=== PATIENT | male | born 1940 | race Caucasian/White ===

== ENCOUNTER 2017-01-14 19:54 | Emergency (ER) | payer MEDICARE ==
[~2017-01-14] VITALS: Ht 172.7 cm; Wt 71.2 kg
[~2017-01-14 19:54] MED LIST: /FEXO18TA OR; /FEXO18TA PO; ALBU17IN2 IN; AMLO10TA OR; ASPI81TA83 PO; ATROVENT0.02% INH; BUSP10TA2 PO; COLA100C2 OR; Cardizem CD PO; FIBER LAXATIVE PO; HYDR25TA6 PO; LEVA750T OR; METOPROLOL TARTRATE PO; MIRALEX PO; MUCINEX PO; OMEP20TA7 PO; SLOWTAB PO; TRAM50TA2 OR; TRAZ100T PO; TRICOR PO; [UNRECOGNIZED DRUG - OTHER] PO
[2017-01-14] MEDS ORDERED: PANT20TA PO (20:07)
[2017-01-14 21:11] LABS: BASO % 0.2 % (0.0-1.0); EOS % 0.4 % (0.0-3.0); LARGE UNSTAINED CELL # 0.2 K/mm3 (0.0-0.4); LARGE UNSTAINED CELL % 2.6 % (0.0-4.0); LYMPH # 1.2 K/mm3 (1.5-4.5); LYMPH % 18.3 % (24.0-44.0); MEAN CORPUSCULAR HEMOGLOBIN 32.4 pg (27.0-33.0); MEAN CORPUSCULAR HGB CONC 33.5 g/dl (32.0-36.5); MEAN CORPUSCULAR VOLUME 96.8 fl (80.0-96.0); MONO # 0.3 K/mm3 (0.0-0.8); MONO % 4.7 % (0.0-5.0); NEUTROPHILS # 4.9 K/mm3 (1.8-7.7); NEUTROPHILS % 73.8 % (36.0-66.0); PLATELET COUNT, AUTOMATED 209 k/mm3 (150-450); WHITE BLOOD COUNT 6.7 K/mm3 (4.0-10.0)
[2017-01-14 21:38] LABS: ALBUMIN 3.1 GM/DL (3.2-5.2); ALBUMIN/GLOBULIN RATIO 1.07 (1.00-1.93); ALKALINE PHOSPHATASE 29 U/L (45-117); ALT/SGPT 13 U/L (12-78); ANION GAP 7 MEQ/L (8-16); AST/SGOT 11 U/L (15-37); BILIRUBIN,DIRECT 0.3 MG/DL (0.0-0.2); BILIRUBIN,TOTAL 1.2 MG/DL (0.2-1.0); BLOOD UREA NITROGEN 19 MG/DL (7-18); CARBON DIOXIDE LEVEL 28 MEQ/L (21-32); CHLORIDE LEVEL 103 MEQ/L (98-107); CREATININE FOR GFR 0.87 MG/DL (0.70-1.30); GLOMERULAR FILTRATION RATE > 60.0 (>42); GLUCOSE, FASTING 109 MG/DL (83-110); POTASSIUM SERUM 3.4 MEQ/L (3.5-5.1); SODIUM LEVEL 138 MEQ/L (136-145)
[2017-01-14] MEDS ORDERED: ISOVUE-370 76% 100ML VIAL (Q9967) As Ordered ONE (22:07)
[2017-01-15] MEDS ORDERED: MECL-68 PO (00:33)
[2017-01-15] MEDS ORDERED: ZITHTAB PO (00:36)
[2017-01-15] MEDS ORDERED: NS 1,000 ML IV ONE (01:30)
[2017-01-15 02:05] VITALS: BP 182/91
--- NOTE | 2017-01-15 03:10 | REPUSA ---
CT of the abdomen and pelvis with contrast Clinical statement: Pain. Technique: Multiple axial CT images were obtained from the base of the lungs through the floor of the pelvis utilizing 5 mm axial slices after administration of nonionic intravenous contrast. Coronal an d sagittal reconstructions were also obtained. No comparison is available. Findings: Chest: There is a right lower lobe infiltrate. There is a small hiatal hernia. Abdomen: The liver, spleen, pancreas, kidneys, and adrenal glands are unremarkable. The gallbladder i s significantly distended. Dense material is seen in the dependent portion the gallbladder. There is no gallbladder wall thickening or pericholecystic free fluid. The aorta is within normal limits. Ther e is no evidence of abdominal lymphadenopathy or ascites. Pelvis: Moderate amount of stool fills the colon. The bowel is ootherwise unremarkable, with no obstr uctive or inflammatory changes. The urinary bladder is within normal limits. The other pelvic structu res appear grossly intact. There is no evidence of pelvic lymphadenopathy or ascites. Bones: There are no suspicious osseous abnormalities seen. Multilevel degenerative disc disease is no edilberto throughout the lower thoracic and lumbar spine, most severe at L1/L2 . Moderate osteoarthritic c hanges are seen in the hip joints bilaterally. Impression: 1. Moderate constipation. No obstructive or inflammatory bowel changes. 2. Right lower lobe pneumonia. 3. Small hiatal hernia. 4. Distended gallbladder with dense material, likely representing gallbladder sludge.No evidence for acute cholecystitis. 5. Moderately severe degenerative changes within the spine and hip joints bilaterally.
--- NOTE | 2017-01-15 03:10 | REPUSA ---
CT of the head Clinical history: vertigo, fever. Protocol: Multiple axial CT images obtained with 5 mm slice thickness were obtained through the head without administration of contrast. Findings: The ventricles and sulci are symmetric but prominent in size bilaterally. There are periven tricular areas of low attenuation throughout the deep white matter. There is no evidence of acute hem orrhage or infarct. There is no midline shift, mass effect, or extra-axial fluid collection. The osse ous structures are unremarkable. The visualized paranasal sinuses and mastoid air cells are clear. Impression: No acute hemorrhage or infarct. 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
--- NOTE | 2017-01-16 08:03 | ECGEPIP ---
Stationary ECG Study 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
== END 2017-01-15 02:20 | disposition home or self-care (01) ==
LOC: M ED 20:47
DX: H81.13 Benign paroxysmal vertigo, bilateral (principal); R10.10 Upper abdominal pain, unspecified; I11.0 Hypertensive heart disease with heart failure; I50.9 Heart failure, unspecified; I25.2 Old myocardial infarction
CPT/HCPCS: 36415; 70450; 74177; 80048; 80076; 81001; 83605; 83690; 85025; 93005; 93041; 99285; Q9967

== ENCOUNTER 2017-02-06 14:14 | Inpatient (IN) | payer MEDICARE ==
[~2017-02-06] VITALS: Ht 172.7 cm; Wt 64.2 kg
[~2017-02-06 14:14] MED LIST changes: +MECL-68 PO; +PANT20TA PO; +ZITHTAB PO
[2017-02-06] MEDS ORDERED: BUSP10TA PO (14:28)
[2017-02-06] MEDS ORDERED: MECL-86 PO (14:28)
[2017-02-06] MEDS ORDERED: ASPI81TA85 PO (14:28)
[2017-02-06] MEDS ORDERED: TRAM50TA2 PO (14:29)
[2017-02-06] MEDS ORDERED: TRAZ100T4 PO (14:29)
[2017-02-06] MEDS ORDERED: MECLIZINE 25 MG TABLET PO ONE (17:00)
[2017-02-06 17:02] LABS: BASO % 0.4 % (0.0-1.0); EOS # 0.1 K/mm3 (0.0-0.50); EOS % 2.3 % (0.0-3.0); LARGE UNSTAINED CELL # 0.1 K/mm3 (0.0-0.4); LARGE UNSTAINED CELL % 2.6 % (0.0-4.0); LYMPH # 1.3 K/mm3 (1.5-4.5); LYMPH % 35.5 % (24.0-44.0); MEAN CORPUSCULAR HEMOGLOBIN 32.5 pg (27.0-33.0); MEAN CORPUSCULAR HGB CONC 33.6 g/dl (32.0-36.5); MEAN CORPUSCULAR VOLUME 96.7 fl (80.0-96.0); MONO # 0.2 K/mm3 (0.0-0.8); MONO % 4.9 % (0.0-5.0); NEUTROPHILS # 1.9 K/mm3 (1.8-7.7); NEUTROPHILS % 54.3 % (36.0-66.0); PLATELET COUNT, AUTOMATED 202 k/mm3 (150-450); RED CELL DISTRIBUTION WIDTH 14.3 % (11.5-14.5); WHITE BLOOD COUNT 3.4 K/mm3 (4.0-10.0)
[2017-02-06 17:28] LABS: ANION GAP 6 MEQ/L (8-16); BLOOD UREA NITROGEN 20 MG/DL (7-18); CALCIUM LEVEL 8.3 MG/DL (8.8-10.2); CARBON DIOXIDE LEVEL 30 MEQ/L (21-32); CHLORIDE LEVEL 105 MEQ/L (98-107); CREATININE FOR GFR 0.87 MG/DL (0.70-1.30); GLOMERULAR FILTRATION RATE > 60.0 (>42); GLUCOSE, FASTING 158 MG/DL (83-110); MAGNESIUM LEVEL 1.7 MG/DL (1.8-2.4); PHOSPHORUS LEVEL 2.9 MG/DL (2.5-4.9); POTASSIUM SERUM 3.8 MEQ/L (3.5-5.1); SODIUM LEVEL 141 MEQ/L (136-145)
--- NOTE | 2017-02-06 18:10 | REP ---
CHEST, TWO VIEWS: HISTORY: Dizziness and fatigue. COMPARISON: 01/03/2016 The heart size is now borderline. A few patchy opacities have developed in the inferior posterior lung michaud seen only on the lateral view anterior to the pulmonary veins. The frontal view shows the lung field to be clear. The osseous structures stable and intact. The pleural angles are sharp. IMPRESSION: Possible developing lower lobe pneumonia as described above which needs to be correlated clinically with appropriate followup. Borderline heart size. Signed by Jose Guadalupe Fuentes DO 02/06/2017 06:53 P
[2017-02-06] MEDS ORDERED: ACETAMINOPHEN TAB 650MG DOSE (2X325MG) As Ordered ONE (19:30)
[2017-02-06] MEDS ORDERED: ACETAMINOPHEN TAB 650MG DOSE (2X325MG) PO ONE (19:30)
[2017-02-06] MEDS ORDERED: hydrALAZINE INJ 20 MG/ML VIAL IV ONE (19:45)
[2017-02-06] MEDS ORDERED: LevoFLOXacin IV 750 MG in APPROPRIATE DILUENT 1 EA IV ONE (20:00)
[2017-02-06] MEDS ORDERED: MAGNESIUM OXIDE 400 MG TAB (MAG-OX) PO ONE (20:00)
--- NOTE | 2017-02-06 20:00 | REPUSA ---
CLINICAL HISTORY: HTN, DIZZY, EVAL FOR ICH TECHNIQUE: Multiple axial CT images were obtained through the brain without IV contrast material. COMMENTS: There is normal configuration of sella turcica. There are no intra or extra-axial collections. There is no mass effect or midline shift. There is no evidence of hematoma formation. No hydrocephalus is p resent. The ventricles are symmetrical. No abnormal calcifications are present. There is diffuse age-appropriate cerebellar and cerebral atrophy with proportionally dilated ventricl es and cortical sulci. There are bilateral periventricular and subcortical white matter hypolucencies compatible with mild c hronic microvascular disease. Otherwise, no significant focal abnormalities are seen either in the posterior fossa or supratentoria l compartment. IMPRESSION: 1. Age-appropriate cerebellar and cerebral atrophy. 2. Mild chronic microvascular disease. 3. No evidence of acute intracranial pathology. Thank you for your kind referral of this patient.
[2017-02-06] MEDS ORDERED: ASPI81TA7 PO (20:31)
[2017-02-06] MEDS ORDERED: FLUD1TA PO (20:31)
[2017-02-06] MEDS ORDERED: BUSP15TA47 PO (20:31)
[2017-02-06] MEDS ORDERED: IBUP60TA PO (20:31)
[2017-02-06] MEDS ORDERED: PANT40TA2 PO (20:31)
[2017-02-06] MEDS ORDERED: OXYB5TA PO (20:31)
[2017-02-06] MEDS ORDERED: traMADol 50 MG TAB PO PRN (21:30)
[2017-02-06 23:45] VITALS: BP 207/91
[2017-02-07] VITALS (18 sets, daily range): BP systolic 85–204; BP diastolic 48–90
[2017-02-07] MEDS: hydrALAZINE INJ 20 MG/ML VIAL IV SCH ×2 (00:07→06:00)
[2017-02-07] MEDS: traZODone 50 MG TAB PO SCH ×2 (00:25→20:19)
[2017-02-07] MEDS: cefTRIAXone SOD 1 GM in D5W MINI-BAG PLUS 50 ML IV SCH ×2 (00:25→11:46)
[2017-02-07] MEDS: busPIRone 5 MG TAB PO SCH ×3 (00:25→20:19)
[2017-02-07] MEDS: oxyBUTYnin 5 MG TAB PO SCH ×3 (01:53→20:19)
[2017-02-07] MEDS ORDERED: PREVNAR 13 VACCINE SYRINGE (CPT CODE:90670) IM SCH (04:15)
[2017-02-07] MEDS ORDERED: MAG SULF 1GM/100ML (MAG RUN) 1 GM in APPROPRIATE DILUENT 1 EA IV ONE (04:30)
[2017-02-07 04:50] LABS: BASO % 0.5 % (0.0-1.0); EOS % 1.1 % (0.0-3.0); LARGE UNSTAINED CELL # 0.1 K/mm3 (0.0-0.4); LARGE UNSTAINED CELL % 2.7 % (0.0-4.0); LYMPH # 0.9 K/mm3 (1.5-4.5); LYMPH % 17.9 % (24.0-44.0); MEAN CORPUSCULAR HGB CONC 33.5 g/dl (32.0-36.5); MEAN CORPUSCULAR VOLUME 95.5 fl (80.0-96.0); MONO # 0.3 K/mm3 (0.0-0.8); NEUTROPHILS # 3.2 K/mm3 (1.8-7.7); NEUTROPHILS % 71.8 % (36.0-66.0); PLATELET COUNT, AUTOMATED 228 k/mm3 (150-450); RED CELL DISTRIBUTION WIDTH 14.3 % (11.5-14.5); WHITE BLOOD COUNT 4.4 K/mm3 (4.0-10.0)
[2017-02-07 05:13] LABS: ALBUMIN 2.8 GM/DL (3.2-5.2); ALKALINE PHOSPHATASE 26 U/L (45-117); ALT/SGPT 15 U/L (12-78); ANION GAP 4 MEQ/L (8-16); AST/SGOT 13 U/L (15-37); BILIRUBIN,TOTAL 0.7 MG/DL (0.2-1.0); BLOOD UREA NITROGEN 19 MG/DL (7-18); CALCIUM LEVEL 8.3 MG/DL (8.8-10.2); CARBON DIOXIDE LEVEL 31 MEQ/L (21-32); CHLORIDE LEVEL 108 MEQ/L (98-107); CREATININE FOR GFR 1.02 MG/DL (0.70-1.30); GLOMERULAR FILTRATION RATE > 60.0 (>42); GLUCOSE, FASTING 133 MG/DL (83-110); POTASSIUM SERUM 3.3 MEQ/L (3.5-5.1); SODIUM LEVEL 143 MEQ/L (136-145); TOTAL PROTEIN 5.6 GM/DL (6.4-8.2)
--- NOTE | 2017-02-07 05:16 | HPE ---
DATE OF ADMISSION: 02/06/2017 PRIMARY CARE PROVIDER: MARVIN Ruiz REASON FOR ADMISSION: Dizziness, hypertensive urgency. HISTORY OF PRESENT ILLNESS: Patient is a 76-year-old male with past medical history significant for gastroesophageal reflux disease (GERD), urinary incontinence, chronic constipation, depression, presented to the emergency room with his who stated that patient has been feeling weak and sleepy all morning. She stated he has been feeling dizzy, almost passed out, but had no syncopal episodes and no loss of consciousness. Patient denied any chest pain or shortness of breath. He did complain of chills but no fevers. He was recently diagnosed with pneumonia and completed a Z-Julian for 5 days that was 3 weeks ago. Upon presentation, patient underwent chest x-ray which showed possible developing lower lobe pneumonia as described above in the chest x-ray. Hospitalist was called for the admission. REVIEW OF SYSTEMS: 12-point review of system was obtained all which was negative except for those mentioned above. PAST MEDICAL HISTORY: Significant for chronic constipation, GERD, urinary incontinence, recently diagnosed pneumonia, and anxiety. PAST SURGICAL HISTORY: Significant for left knee surgery. ALLERGIES: To PENICILLIN and SULFA, reaction unknown. SOCIAL HISTORY: Patient denies tobacco, alcohol or drug use. Lives at home with his . FAMILY HISTORY: Noncontributory. PHYSICAL EXAMINATION: Vital signs on admission: Blood pressure initially was 108/50 but then during his stay in the emergency department (ED) his pressure went up in the 160s and 183/77. He was given one dose of hydralazine. Heart rate was in the 60s to 50s , respiratory rate 22, temperature 98.9, oxygen saturation 99% on room air. HEENT: Pupils equal, round, reactive to light and accommodation. Neck: Supple. No jugular venous distention (JVD). Lungs: Clear to auscultation bilaterally. Abdomen: Soft, nontender. Extremities: Trace edema bilaterally. No clubbing or cyanosis. Neurologic: Cranial nerves II-XII grossly intact. No focal deficits. LABORATORY FINDINGS: WBC 3.4, hemoglobin 7.7, hematocrit 31.8, platelet count 202. Sodium 141, potassium 3.8, chloride 105, BUN 20, creatinine 0.87, glucose 153, troponin negative times two, TSH 1.3, magnesium 1.7. Chest x-ray with possible developing lower lobe pneumonia. Head CT showed age appropriate cerebellar and cerebral atrophy, mild chronic microvascular disease. No evidence of acute intracranial pathology. ASSESSMENT AND PLAN: 1. Dizziness. Unknown etiology at this time. May be secondary to new developing pneumonia or infection. Patient did receive one dose of meclizine in the emergency room, which has helped. At this time, patient denies any dizziness. We will check orthostatic blood pressures to rule out orthostatic hypotension since patient's blood pressure has been fluctuating during his stay here. 2. Hypertension urgency. Patient has no history of high blood pressure. Per the , his blood pressures usually within normal limits. It went up as high as 200 systolically. He was given one dose of hydralazine in the emergency room and we will continue that, hold for systolic blood pressure less than 160. 3. Bradycardia. will continue to monitor on tele 4. Leukopenia. It may be secondary to developing pneumonia. We will continue antibiotics. Patient received one dose of levofloxacin in the emergency room. We will continue patient on ceftriaxone. We will try to obtain sputum culture. However, at this time, patient denies any cough or sputum production. He appears to be saturating 98% on room air. 5. History of chronic constipation. 6. History of gastroesophageal reflux disease. Continue patient's home medication. 7. History urinary incontinence. Will continue oxybutynin. 8. Deep venous thrombosis (DVT) prophylaxis. Thromboembolism deterrents (TEDs) and sequentials while in bed. Patient will be seen by Dr. Shelton in the morning. SORIN
[2017-02-07] MEDS ORDERED: POTASSIUM CHLORIDE 10 MEQ SR TABLET PO ONE (07:00)
--- NOTE | 2017-02-07 08:02 | ECGEPIP ---
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
[2017-02-07] MEDS: ASPIRIN 81 MG ENTERIC TAB PO SCH (08:08)
[2017-02-07] MEDS: PANTOPRAZOLE 40MG TAB (PROTONIX) PO SCH (08:08)
[2017-02-07] MEDS: FLUDROCORTISONE ACETATE 0.1 MG TAB PO SCH (08:08)
[2017-02-07] MEDS ORDERED: MAGNESIUM CITRATE 300 ML BTL PO ONE (08:15)
[2017-02-07] MEDS ORDERED: **hydrALAZINE** 10 MG TAB PO SCH (09:00)
--- NOTE | 2017-02-07 14:40 | ECGEPIP ---
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
[2017-02-07] MEDS: **hydrALAZINE HCL** 25 MG TAB PO SCH ×2 (17:30→22:21)
[2017-02-08] VITALS (11 sets, daily range): BP systolic 92–178; BP diastolic 62–100
[2017-02-08] MEDS: cefTRIAXone SOD 1 GM in D5W MINI-BAG PLUS 50 ML IV SCH ×2 (00:15→11:08)
[2017-02-08] MEDS ORDERED: CAPTOpril 12.5 MG TAB PO ONE (03:15)
[2017-02-08] MEDS: **hydrALAZINE HCL** 25 MG TAB PO SCH ×3 (05:21→21:23)
[2017-02-08 06:15] LABS: MEAN CORPUSCULAR HEMOGLOBIN 32.8 pg (27.0-33.0); MEAN CORPUSCULAR HGB CONC 34.2 g/dl (32.0-36.5); MEAN CORPUSCULAR VOLUME 95.8 fl (80.0-96.0); RED CELL DISTRIBUTION WIDTH 14.3 % (11.5-14.5); WHITE BLOOD COUNT 4.9 K/mm3 (4.0-10.0)
[2017-02-08 06:36] LABS: ALBUMIN/GLOBULIN RATIO 1.11 (1.00-1.93); ALKALINE PHOSPHATASE 29 U/L (45-117); ALT/SGPT 15 U/L (12-78); ANION GAP 6 MEQ/L (8-16); AST/SGOT 13 U/L (15-37); BILIRUBIN,TOTAL 0.4 MG/DL (0.2-1.0); BLOOD UREA NITROGEN 25 MG/DL (7-18); CALCIUM LEVEL 8.4 MG/DL (8.8-10.2); CARBON DIOXIDE LEVEL 28 MEQ/L (21-32); CHLORIDE LEVEL 105 MEQ/L (98-107); CREATININE FOR GFR 0.89 MG/DL (0.70-1.30); GLOMERULAR FILTRATION RATE > 60.0 (>42); GLUCOSE, FASTING 100 MG/DL (83-110); MAGNESIUM LEVEL 1.6 MG/DL (1.8-2.4); POTASSIUM SERUM 4.3 MEQ/L (3.5-5.1); SODIUM LEVEL 139 MEQ/L (136-145); TOTAL PROTEIN 5.7 GM/DL (6.4-8.2)
[2017-02-08] MEDS: ASPIRIN 81 MG ENTERIC TAB PO SCH (09:30)
[2017-02-08] MEDS: FLUDROCORTISONE ACETATE 0.1 MG TAB PO SCH (09:30)
[2017-02-08] MEDS: PANTOPRAZOLE 40MG TAB (PROTONIX) PO SCH (09:30)
[2017-02-08] MEDS: busPIRone 5 MG TAB PO SCH ×2 (09:30→21:16)
[2017-02-08] MEDS: oxyBUTYnin 5 MG TAB PO SCH ×2 (09:30→21:16)
[2017-02-08] MEDS: amLODIPine 10 MG TAB PO SCH (09:36)
[2017-02-08] MEDS: ENOXAPARIN 40 MG/0.4 ML SYRINGE (J1650) SC SCH (11:08)
--- NOTE | 2017-02-08 12:21 | IPN ---
DATE: 02/07/2017 SUBJECTIVE: Mr. Torres is a 76-year-old male who was seen and examined at the bedside. The patient denies chest pain, orthopnea, paroxysmal nocturnal dyspnea. The patient also denies nausea, vomiting, diarrhea or constipation. The patient denies overnight issues. The patient expressed that he had one episode of dizziness when he wanted to stand up. We have requested physical therapy (PT) to evaluate the patient. OBJECTIVE: VITAL SIGNS: Temperature 98.7, pulse 65, respiratory rate 18, blood pressure 158/75, pulse oximetry 97% on room air. Total intake from yesterday 400 mL, total output 1700 mL. GENERAL APPEARANCE: The patient was lying in bed, no acute distress. The patient was awake, alert and oriented to time, place and person. HEENT: Normocephalic, atraumatic. Pupils are equal and reactive to light. Oral mucosa is moist. NECK: No lymphadenopathy . No thyromegaly. No jugular venous distention (JVD). HEART: Regular rate and rhythm. Normal S1, S2. ABDOMEN: Soft and nontender. Positive bowel sounds in all quadrants. EXTREMITIES: The patient has trace of lower extremity edema; however, no cyanosis or clubbing. LABORATORY DATA: White blood cells 4.4, red blood cells 3.6, hemoglobin 11.6, hematocrit 34.7, MCV 95.5, MCH 32, MCHC 33.5, RDW 14.3, platelet count 228, neutrophil percentage 71.8, lymphocyte percentage 71.8, lymphocyte percentage 17.9, monocyte percentage 6, eosinophil percentage 1.1. Sodium 143, potassium 3.3, chloride 108, carbon dioxide 31, anion gap 4, BUN 19, creatinine 1.02, GFR more than 60, fasting glucose 133, calcium 8.3, total bilirubin 0.7, AST 13, ALT 15, alkaline phosphatase 26, total protein 5.6, albumin 2.0. ASSESSMENT AND PLAN: 1. Hypertensive urgency. Based on history and physical, the patient did not have any history of hypertension and his blood pressure usually runs normal. The patient was started on hydralazine. At this time, the patient's blood pressure is in the acceptable range. We will continue to monitor the patient for any abnormal symptoms. 2. Dizziness. At this time, the patient is symptomatic. The patient will be evaluated by physical therapy (PT). 3. Bradycardia. This is resolved. 4. Leukopenia, resolved. At this time, the patient is on ceftriaxone, we will continue for one more day. Also, the patient's oxygen saturation is in normal range. The chest x-ray raises a possibility of pneumonia in the lower lobe. Therefore, we will continue ceftriaxone for one more day. 5. History of constipation. The patient is on bowel regimen. 6. Gastroesophageal reflux disease (GERD). The patient is on Protonix. 7. History of urinary incontinence. The patient is on oxybutynin. 8. Deep vein thrombosis (DVT) prophylaxis. The patient is on TEDs and sequential compression device (SCD). 9. Insomnia. The patient is on trazodone 50 mg by mouth at night by mouth. My preceptor for this patient encounter was Dr. Shelton. The preceptor was physically present in the building during the encounter and was fully available. As needed, all aspects of the patient interview, examination, medical decision making process, and medical care plan development were reviewed and approved by the preceptor. The preceptor is aware and concurs with the plan as stated in the body of this note and will attest to such by his/her cosignature. SORIN
[2017-02-08] MEDS ORDERED: MAG SULF 1GM/100ML (MAG RUN) 1 GM in APPROPRIATE DILUENT 1 EA IV ONE (13:00)
--- NOTE | 2017-02-08 15:13 | IPN ---
DATE: 02/08/2017 SUBJECTIVE: Mr. Torres is a 76-year-old male who was seen and examined at the bedside. The patient denies chest pain, orthopnea, or paroxysmal nocturnal dyspnea. The patient also denies nausea, vomiting, diarrhea or constipation; however, yesterday, early in the morning, developed one episode of hypertension, which, after medications, became controlled. The patient denies dizziness or lightheadedness. OBJECTIVE: VITAL SIGNS: Temperature 98, pulse 63, respiratory rate 17, blood pressure 156/70, pulse oximetry 99% on room air. GENERAL APPEARANCE: The patient was lying in bed in no acute distress. The patient was awake, alert and oriented to time, place and person. HEENT: Normocephalic, atraumatic. Mucosa is moist. NECK: Soft, supple. No lymphadenopathy, thyromegaly or jugular venous distention (JVD). HEART: Regular rate and rhythm. Normal S1, S2. ABDOMEN: Soft, nontender. Positive bowel sounds in all quadrants. EXTREMITIES: The patient has lower extremity edema, pulses in both lower extremities. No cyanosis or clubbing. LABORATORY DATA: White blood cells 4.9, red blood cells 3.45, hemoglobin 11.3, hematocrit 33, MCV 95.8, MCH 32.8, MCHC 34.2, RDW 14.3, platelet count 232. Sodium 139, potassium 4.3, chloride 105, carbon dioxide 28, anion gap 6, BUN 25, creatinine 0.89, GFR more than 60, fasting glucose 100, calcium 8.4, magnesium 1.6, total bilirubin 0.4, AST 13, ALT 15, alkaline phosphatase 29, total protein 5.7, albumin 3. ASSESSMENT AND PLAN: 1. Hypertensive urgency. Again, the patient had another episode of hypertension; however, the patient was given one dose of Captopril 6.5 mg once. Also, we have changed the hydralazine from 10 mg twice a day by mouth to 12.5 mg every 8 hours by mouth. Also, the patient was started on Norvasc 10 mg. We will continue monitoring the patient's blood pressure. At this time, the patient's blood pressure is in the normal range. Also, we have ordered renal artery ultrasound, which will be performed tomorrow. The patient will be nothing by mouth from midnight tonight. Also, we have ordered plasma metanephrine and normetanephrine and the results are pending at this time. We will continue to monitor the patient for any abnormal symptoms. 2. Dizziness, resolved. The patient will be followed with the physical therapy (PT). 3. Bradycardia. It has resolved. 4. Leukopenia, resolved. Chest x-ray, which was done on 02/06/2017 indicated the possibility of developing lower lobe pneumonia. However, the patient is asymptomatic and physical examination did not indicate any indications of pneumonia. Blood culture was negative. At this time, white blood cells in the normal range. Therefore, I have stopped the ceftriaxone. We will continue to monitor the patient for any abnormal symptoms. 5. History of constipation. The patient is on bowel regimen. 6. Gastroesophageal reflux disease (GERD). The patient is on Protonix. 7. History of urinary incontinence. The patient is on oxybutynin. 8. Deep vein thrombosis (DVT) prophylaxis. The patient is on Lovenox. 9. Insomnia. The patient is on trazodone. 10. Generalized anxiety. The patient is on BuSpar 50 mg by mouth twice a day. My preceptor for this patient encounter was Dr. Shelton. The preceptor was physically present in the building during the encounter and was fully available. As needed, all aspects of the patient interview, examination, medical decision making process, and medical care plan development were reviewed and approved by the preceptor. The preceptor is aware and concurs with the plan as stated in the body of this note and will attest to such by his/her cosignature. SORIN
[2017-02-08] MEDS: traZODone 50 MG TAB PO SCH (21:16)
--- NOTE | 2017-02-08 23:10 | ECHO ---
DATE OF PROCEDURE: 02/08/2017 DATE OF : 1940 AGE: 76 REFERRING PROVIDER: Dr. Christiano Shelton CERTIFIED MEDICAL CODING SPECIALIST: Dr. Fisher PATIENT LOCATION: Room 4207 REASON FOR THE ECHOCARDIOGRAM: Syncope. 2D MEASUREMENTS: IVS: 1.1 cm LV: 4.6 cm LVPW: 1.1 cm LA: 3.5 cm Aorta: 3.2 cm DOPPLER MEASUREMENTS: Peak velocity across the aortic valve: 1.4 m/s Peak velocity across the LVOT: 0.58 m/s Mitral E: 0.54, Mitral A: 0.80 with a ratio of 0.7 Maximum tricuspid valve velocity: 2.1 m/s 2D COMMENTS: 1. Normal left ventricular size, wall thickness and normal global left ventricular systolic function. The estimated global left ventricular systolic ejection fraction is 60-65%. 2. Normal left atrium. Normal right atrium and right ventricle. 3. The atrial septum appeared to be normal without evidence of defect or shunt. 4. Normal aortic root. 5. No pericardial effusion seen. 6. Mildly calcified aortic valve with normal leaflet excursion. Normal mitral valve and tricuspid valve. The pulmonic valve and proximal pulmonary artery branches were not well visualized. 7. The inferior vena cava was not visualized. DOPPLER: It detects mild aortic regurgitation, trace mitral regurgitation, and trace tricuspid regurgitation. The calculated pulmonary artery systolic pressure was normal. Abnormal relaxation pattern was noted across the mitral valve leaflets as well as the mitral valve annulus, consistent with a delayed relaxation. IMPRESSION; 1. Normal global left ventricular systolic function. There are some features of left ventricular diastolic dysfunction, grade 1. 2. Aortic valve sclerosis with mild aortic regurgitation. 3. Trace mitral regurgitation. 4. Trace tricuspid regurgitation with a normal calculated pulmonary artery systolic pressure. Copy To: Dr. Christiano Shelton [facility]
[2017-02-09] VITALS (10 sets, daily range): BP systolic 85–178; BP diastolic 47–108
[2017-02-09] MEDS: **hydrALAZINE HCL** 25 MG TAB PO SCH (05:51)
[2017-02-09 06:01] LABS: MEAN CORPUSCULAR HEMOGLOBIN 32.4 pg (27.0-33.0); MEAN CORPUSCULAR HGB CONC 33.6 g/dl (32.0-36.5); MEAN CORPUSCULAR VOLUME 96.5 fl (80.0-96.0); RED CELL DISTRIBUTION WIDTH 14.4 % (11.5-14.5); WHITE BLOOD COUNT 5.4 K/mm3 (4.0-10.0)
[2017-02-09 06:18] LABS: ALKALINE PHOSPHATASE 37 U/L (45-117); ALT/SGPT 35 U/L (12-78); ANION GAP 6 MEQ/L (8-16); AST/SGOT 46 U/L (15-37); BILIRUBIN,TOTAL 0.8 MG/DL (0.2-1.0); BLOOD UREA NITROGEN 19 MG/DL (7-18); CALCIUM LEVEL 8.7 MG/DL (8.8-10.2); CARBON DIOXIDE LEVEL 30 MEQ/L (21-32); CHLORIDE LEVEL 105 MEQ/L (98-107); CREATININE FOR GFR 0.65 MG/DL (0.70-1.30); GLOMERULAR FILTRATION RATE > 60.0 (>42); GLUCOSE, FASTING 105 MG/DL (83-110); MAGNESIUM LEVEL 1.5 MG/DL (1.8-2.4); POTASSIUM SERUM 3.8 MEQ/L (3.5-5.1); SODIUM LEVEL 141 MEQ/L (136-145)
[2017-02-09] MEDS: ASPIRIN 81 MG ENTERIC TAB PO SCH (08:43)
[2017-02-09] MEDS: PANTOPRAZOLE 40MG TAB (PROTONIX) PO SCH (08:43)
[2017-02-09] MEDS: busPIRone 5 MG TAB PO SCH ×2 (08:43→21:50)
[2017-02-09] MEDS: ENOXAPARIN 40 MG/0.4 ML SYRINGE (J1650) SC SCH (08:43)
[2017-02-09] MEDS: FLUDROCORTISONE ACETATE 0.1 MG TAB PO SCH (08:44)
[2017-02-09] MEDS: oxyBUTYnin 5 MG TAB PO SCH ×2 (08:44→21:51)
[2017-02-09] MEDS: amLODIPine 10 MG TAB PO SCH (08:44)
[2017-02-09] MEDS: LISINOPRIL 20 MG TAB PO SCH (09:00)
--- NOTE | 2017-02-09 09:23 | REP ---
Clinical: Hypertension and chronic medical renal disease. Technique: Leger scale and color Doppler evaluation of the kidneys and renal vasculature using curved array transducer. Findings: The kidneys are essentially normal in contour size and echogenicity and reniform shape without hydronephrosis, nephrolithiasis or renal mass lesion. Right kidney measures 9.1 x 4.1 x 4.7 cm and includes 3.5 cm mid pole cortical cyst. Left kidney measures 11.3 x 6.2 x 6.3 cm without cystic changes. Bladder is incompletely distended and demonstrates posterior wall thickening with trabeculation. Color Doppler evaluation of the renal vasculature demonstrates elevated right renal aortic ratio and peak arterial renal velocity along with bilateral elevated resistive indices and acceleration times. Findings suggest right renal arterial stenosis and further evaluation with MRA and/or renal function testing may be of value. Right Kidney: Peak arterial velocity: 152.3 . Renal aortic ratio: 2.2 . Resistive indices: 0.74 - 0.82 . Acceleration times: 0.21 - 0.24 . Left kidney: Peak arterial velocity: 86.7 cm/sec . Renal aortic ratio: 1.3 . Resistive indices: 0.70 - 0.77 . Acceleration times: 0.20 - 0.23 . Impression: 1. Relatively normal leger-scale appearance to the bilateral kidneys with 3.5 cm simple right renal cyst. 2. Findings suggest elements of renovascular disease as described above including the possibility of right renal arterial stenosis. Consider MRI and/or nuclear medicine renal function testing for more complete evaluation. 3. Trabeculations to the bladder wall may reflect changes related to chronic outlet obstruction. Signed by Cyril Ashley MD 02/09/2017 09:15 A
--- NOTE | 2017-02-09 15:08 | IPN ---
DATE OF VISIT: 02/09/2017 SUBJECTIVE: Mr. Torres is a 76-year-old male who was seen and examined at the bedside. The patient denies chest pain, orthopnea, or paroxysmal nocturnal dyspnea (PND). The patient also denies nausea, vomiting, diarrhea or constipation. The patient denies overnight issues. The patient did not have chills, fever, or night sweats. OBJECTIVE: VITAL SIGNS: Temperature 98.1, pulse 71, respiratory 18, blood pressure 178/108 , pulse oximetry 97% on room air. GENERAL APPEARANCE: The patient was lying in bed in no acute distress. The patient was awake, alert and oriented to time, place and person. HEENT: Normocephalic, atraumatic. Pupils are equal and reactive to light. Oral mucosa is moist. NECK: Soft, supple. No lymphadenopathy, thyromegaly or jugular venous distention (JVD). HEART: Regular rate and rhythm. Normal S1, S2. ABDOMEN: Soft, nontender. Positive bowel sounds in all quadrants. EXTREMITIES: No lower extremity edema, pulses in both lower extremities. LABORATORY DATA: Sodium 5.4, red blood cells 3.48, hemoglobin 11.3, hematocrit 83.6, MCV 96.5, MCH 32.4, MCHC 33.6, RDW 14.4, platelet counts 226. Sodium 141 with a CO2 3.8, chloride 105, carbon dioxide 30, anion gap 6, BUN 19, creatinine 0.61, GFR more than 60, fasting glucose 105, calcium 8.7, magnesium 1.5, total bilirubin 0.8, AST 46, ALT 35, alkaline phosphatase 37, total protein 6, albumin 3. IMAGING TECHNIQUES: Renal Doppler flow which indicated relatively normal vega scale appearance to the bilateral kidneys with 3.5 cm simple right renal cyst, findings suggest elements of renal vascular disease including the possibility of the right renal arterial stenosis consider renal arterial stenosis, trabeculations to the bladder all may reflect changes related to the chronic outlet obstruction. ASSESSMENT AND PLAN: 1. Hypertensive urgency. Has resolved, however, patient has hypertension. We have ordered renal Doppler flow which indicated possibility of the right renal artery stenosis. We have contacted Dr. Yo for the possibility of stent, however, I also have spoken with Dr. Barron regarding the possibility of using ARBs and JESSICA inhibitors. At this time, we have stopped the hydralazine and I have started the patient on lisinopril 20 mg daily. Patient is also on Norvasc 5 mg daily and we will continue monitoring patient's blood pressure. 2. Orthostatic hypotension. Patient has orthostatic hypotension possibly secondary to hydralazine. I have already stopped hydralazine. We will continue monitoring patient's orthostatic vitals. 3. Dizziness. It has resolved. The patient will followup with physical therapy. 4. Bradycardia. It has resolved. 5. Leukopenia. It has resolved. 6. History of constipation. The patient is on a bowel regimen. 7. Gastroesophageal reflux disease (GERD). The patient is on Protonix. 8. History of urinary incontinence. The patient is on oxybutynin. 9. Deep vein thrombosis (DVT) prophylaxis. The patient is on Lovenox. 10. Insomnia. The patient is on trazodone. 11. Generalized anxiety. The patient is on BuSpar. 12. Hypomagnesemia. Patient received one dose of mag run. My preceptor for this patient encounter was Dr. Christiano Shelton. The preceptor was physically present in the building during the encounter and was fully available. As needed, all aspects of the patient interview, examination, medical decision making process, and medical care plan development were reviewed and approved by the preceptor. The preceptor is aware and concurs with the plan as stated in the body of this note and will attest to such by his/her cosignature. SORIN
[2017-02-09] MEDS ORDERED: LISINOPRIL 20 MG TAB PO ONE (21:30)
[2017-02-09] MEDS: traZODone 50 MG TAB PO SCH (21:50)
[2017-02-09 21:53] LABS: ALBUMIN/GLOBULIN RATIO 1.03 (1.00-1.93); ALKALINE PHOSPHATASE 41 U/L (45-117); ALT/SGPT 29 U/L (12-78); ANION GAP 6 MEQ/L (8-16); AST/SGOT 20 U/L (15-37); BILIRUBIN,TOTAL 0.5 MG/DL (0.2-1.0); BLOOD UREA NITROGEN 23 MG/DL (7-18); CALCIUM LEVEL 7.9 MG/DL (8.8-10.2); CARBON DIOXIDE LEVEL 30 MEQ/L (21-32); CHLORIDE LEVEL 102 MEQ/L (98-107); CREATININE FOR GFR 0.68 MG/DL (0.70-1.30); GLOMERULAR FILTRATION RATE > 60.0 (>42); GLUCOSE, FASTING 105 MG/DL (83-110); POTASSIUM SERUM 3.8 MEQ/L (3.5-5.1); SODIUM LEVEL 138 MEQ/L (136-145); TOTAL PROTEIN 5.9 GM/DL (6.4-8.2)
[2017-02-10] VITALS (11 sets, daily range): BP systolic 87–178; BP diastolic 51–80
[2017-02-10] MEDS ORDERED: SLF 3 ML SYR IV PRN (01:15)
[2017-02-10] MEDS: SLF 3 ML SYR IV SCH ×3 (04:30→20:35)
[2017-02-10 05:54] LABS: MEAN CORPUSCULAR HEMOGLOBIN 32.3 pg (27.0-33.0); MEAN CORPUSCULAR HGB CONC 33.4 g/dl (32.0-36.5); MEAN CORPUSCULAR VOLUME 96.7 fl (80.0-96.0); RED CELL DISTRIBUTION WIDTH 14.2 % (11.5-14.5); WHITE BLOOD COUNT 4.8 K/mm3 (4.0-10.0)
[2017-02-10 06:16] LABS: ALBUMIN 2.9 GM/DL (3.2-5.2); ALBUMIN/GLOBULIN RATIO 1.04 (1.00-1.93); ALKALINE PHOSPHATASE 33 U/L (45-117); ALT/SGPT 23 U/L (12-78); ANION GAP 6 MEQ/L (8-16); AST/SGOT 15 U/L (15-37); BILIRUBIN,TOTAL 0.7 MG/DL (0.2-1.0); BLOOD UREA NITROGEN 19 MG/DL (7-18); CARBON DIOXIDE LEVEL 30 MEQ/L (21-32); CHLORIDE LEVEL 105 MEQ/L (98-107); CREATININE FOR GFR 0.69 MG/DL (0.70-1.30); GLOMERULAR FILTRATION RATE > 60.0 (>42); GLUCOSE, FASTING 96 MG/DL (83-110); MAGNESIUM LEVEL 1.5 MG/DL (1.8-2.4); POTASSIUM SERUM 3.9 MEQ/L (3.5-5.1); SODIUM LEVEL 141 MEQ/L (136-145); TOTAL PROTEIN 5.7 GM/DL (6.4-8.2)
--- NOTE | 2017-02-10 08:21 | REP ---
Clinical: Chest pain. Abnormal telemetry. Comparison: 02/06/2017 . Findings: The mediastinum and cardiac silhouette are stable and within normal limits for portable technique. The lung michaud are clear without acute consolidation, effusion, or pneumothorax. Skeletal structures are intact. Impression: No acute cardiopulmonary process or focal consolidation appreciated Signed by Cyril Ashley MD 02/10/2017 08:13 A
[2017-02-10] MEDS: amLODIPine 10 MG TAB PO SCH ×2 (08:37→16:55)
[2017-02-10] MEDS: LISINOPRIL 20 MG TAB PO SCH ×2 (08:38→17:35)
[2017-02-10] MEDS: oxyBUTYnin 5 MG TAB PO SCH ×2 (08:45→20:34)
[2017-02-10] MEDS: FLUDROCORTISONE ACETATE 0.1 MG TAB PO SCH (08:45)
[2017-02-10] MEDS: busPIRone 5 MG TAB PO SCH ×2 (08:45→20:34)
[2017-02-10] MEDS: MAGNESIUM OXIDE 400 MG TAB (MAG-OX) PO SCH (08:46)
[2017-02-10] MEDS: PANTOPRAZOLE 40MG TAB (PROTONIX) PO SCH (08:46)
[2017-02-10] MEDS: ENOXAPARIN 40 MG/0.4 ML SYRINGE (J1650) SC SCH (08:46)
[2017-02-10] MEDS: ASPIRIN 81 MG ENTERIC TAB PO SCH (08:46)
[2017-02-10] MEDS ORDERED: PREVNAR 13 VACCINE SYRINGE (CPT CODE:90670) IM ONE (09:00)
--- NOTE | 2017-02-10 10:51 | IPN ---
DATE: 02/10/2017 This is a pleasant 76-year-old gentleman seen at bedside. He continues to have some intermittent dizziness with change of position and some orthostasis. He does appear to be tolerating his blood pressures well otherwise. Will put some hold parameters on those. No chest pain, blurry vision, double vision. OBJECTIVE: Temperature is 99.5, pulse 18. Orthostatics he has a standing orthostatic blood pressure of 87/51, sitting 102/57 and supine 119/59. SpO2 is 94% on room air. GENERAL: The patient appears to be in no acute distress. She is pleasant. HEENT: Unremarkable. LUNGS: Clear. HEART: Regular rate and rhythm. ABDOMEN: Soft. EXTREMITIES: No edema. No calf tenderness. LABORATORIES: White count 4.8, hemoglobin 10.8, platelets are 220,000. Sodium 141, potassium 3.9, chloride 105, bicarb 30, anion gap 6, BUN is 19, creatinine 0.69, glucose 96. Magnesium is 1.5, which we will supplement. AST is 15, ALT 23, alkaline phosphatase 33. Troponin 0.03, albumin 2.9. Metanephrines are pending at this time. Urine metanephrines are pending as well. His renal ultrasound yesterday did demonstrate a right renal artery stenosis. Chest x-ray no acute cardiopulmonary processes noted. ASSESSMENT/PLAN: 1. Hypertensive urgency. Blood pressures are under better control. We have adjusted his blood pressure medications. I spoke to Dr. Yo who will be back on Saturday and will evaluate the patient for possible renal artery stent placement via interventional radiology. 2. Orthostasis. Will continue to keep an eye on this. We have discontinued hydralazine, which may be a contributing factor. 3. Dizziness. His head CT on admission did not demonstrate any acute issues; however, we will go ahead and do an MRI of the brain today as well to be complete. 4. Bradycardia is resolved. 5. Leukopenia resolved. 6. Constipation. On bowel regimen. 7. Gastroesophageal reflux disease (GERD). On Protonix. 8. History of urinary incontinence. Continues to do well on oxybutynin. 9. Insomnia. Continue trazodone. 10. Generalized anxiety. Continue on BuSpar, which appears to be stable. 11. Hypomagnesemia. Will replete. 12. Deep vein thrombosis (DVT) prophylaxis on Lovenox. DISPOSITION: Will further workup his dizziness with an MRI today. Continue on blood pressure medications as outlined with hold parameters added and anticipate him being evaluated by Dr. Yo on Saturday for possible interventional radiology, angiography and possible stent placement for right renal artery stenosis.
[2017-02-10] MEDS ORDERED: ACETAMINOPHEN TAB 650MG DOSE (2X325MG) PO PRN (16:30)
--- NOTE | 2017-02-10 19:13 | ECGEPIP ---
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
[2017-02-10] MEDS: traZODone 50 MG TAB PO SCH (20:34)
[2017-02-11 04:19] VITALS: BP_SYST 136; BP_SYST 149; BP_DIAS 56; BP_DIAS 57; BP_DIAS 70
[2017-02-11 05:18] LABS: MEAN CORPUSCULAR HEMOGLOBIN 31.6 pg (27.0-33.0); MEAN CORPUSCULAR HGB CONC 32.6 g/dl (32.0-36.5); RED CELL DISTRIBUTION WIDTH 14.1 % (11.5-14.5); WHITE BLOOD COUNT 5.2 K/mm3 (4.0-10.0)
[2017-02-11] MEDS: SLF 3 ML SYR IV SCH ×3 (05:28→22:00)
[2017-02-11 05:31] LABS: ALBUMIN 2.9 GM/DL (3.2-5.2); ALBUMIN/GLOBULIN RATIO 0.97 (1.00-1.93); ALKALINE PHOSPHATASE 33 U/L (45-117); ALT/SGPT 20 U/L (12-78); ANION GAP 3 MEQ/L (8-16); AST/SGOT 15 U/L (15-37); BILIRUBIN,TOTAL 0.6 MG/DL (0.2-1.0); BLOOD UREA NITROGEN 22 MG/DL (7-18); CALCIUM LEVEL 8.1 MG/DL (8.8-10.2); CARBON DIOXIDE LEVEL 31 MEQ/L (21-32); CHLORIDE LEVEL 105 MEQ/L (98-107); CREATININE FOR GFR 0.68 MG/DL (0.70-1.30); GLOMERULAR FILTRATION RATE > 60.0 (>42); GLUCOSE, FASTING 100 MG/DL (83-110); MAGNESIUM LEVEL 1.4 MG/DL (1.8-2.4); POTASSIUM SERUM 3.9 MEQ/L (3.5-5.1); SODIUM LEVEL 139 MEQ/L (136-145); TOTAL PROTEIN 5.9 GM/DL (6.4-8.2)
[2017-02-11 08:00] VITALS: BP_SYST 122; BP_SYST 128; BP_DIAS 52; BP_DIAS 68; BP_DIAS 71
--- NOTE | 2017-02-11 08:18 | REP ---
Clinical: Dizziness. Technique: Axial T1, T2, FLAIR, HEMORRHAGE, diffusion/ADC, and sagittal T1 sequences. Findings: Atrophy and chronic microvascular ischemic changes are appreciated. The ventricles, sulci, and cisterns are otherwise symmetric and normal. Leger-white differentiation is maintained. No acute intracranial hemorrhage, mass/mass effect, evidence for acute infarction or significant abnormal signal intensity foci are identified. No extra-axial fluid collection. Partial opacification to the sphenoid sinuses is nonspecific. The remainder of the sinuses are well aerated and clear. The bilateral orbits are symmetric and normal. The calvarium appears intact. Impression: Chronic-appearing age-related changes. No evidence for acute intracranial infarction, hemorrhage or pathology. Signed by Cyril Ashley MD 02/11/2017 08:10 A
[2017-02-11] MEDS: PANTOPRAZOLE 40MG TAB (PROTONIX) PO SCH (09:46)
[2017-02-11] MEDS: ASPIRIN 81 MG ENTERIC TAB PO SCH (09:46)
[2017-02-11] MEDS: amLODIPine 10 MG TAB PO SCH (09:46)
[2017-02-11] MEDS: oxyBUTYnin 5 MG TAB PO SCH ×2 (09:46→22:10)
[2017-02-11] MEDS: busPIRone 5 MG TAB PO SCH ×2 (09:46→22:10)
[2017-02-11] MEDS: FLUDROCORTISONE ACETATE 0.1 MG TAB PO SCH (09:46)
[2017-02-11] MEDS: MAGNESIUM OXIDE 400 MG TAB (MAG-OX) PO SCH (09:47)
[2017-02-11] MEDS: LISINOPRIL 20 MG TAB PO SCH (09:47)
[2017-02-11] MEDS: ENOXAPARIN 40 MG/0.4 ML SYRINGE (J1650) SC SCH (09:47)
--- NOTE | 2017-02-11 10:48 | IPN ---
DATE: 02/11/2017 Kaushik's dizziness has resolved. Nursing staff says he was orthostatic last night at 132/60 supine, 104/53 standing. This morning, vitals were 149/70 supine, 136/56 standing. Heart rate is down in the 50 to 60 range. No chest pain or shortness of breath. No syncope. MRI scan showed nothing remarkable. PHYSICAL EXAMINATION: 120/71. Pulse 56. Respiratory rate 18. 97% oxygen saturation. General Appearance: Elderly, resting comfortably. Lungs: Clear. Heart: Regular rate and rhythm. I did not hear any murmur. Abdomen: Soft. Nontender. No masses. No peripheral edema. Echocardiogram showed ejection fraction of 60-65%. No significant valvular disease. IMPRESSIONS: 1. Hypertensive urgency. His blood pressure is under good control. He has been found to have possible renal artery stenosis. Dr. Yo will be back Saturday. He needs to be consulted tomorrow to see the patient. 2. Possible renal artery stenosis. Consult Dr. Yo of interventional radiology tomorrow. 3. Orthostasis. Hydralazine has been discontinued. Less noted on exam this morning. 4. Bradycardia. This has recurred. I would keep him on telemetry. He has not had any chronotropic agents. There is no sign of any high degree block.
[2017-02-11 12:00] VITALS: BP_SYST 137; BP_SYST 140; BP_SYST 141; BP_DIAS 64; BP_DIAS 66
[2017-02-11] MEDS ORDERED: MAG SULF 1GM/100ML (MAG RUN) 1 GM in APPROPRIATE DILUENT 1 EA IV ONE (14:45)
[2017-02-11] MEDS: POTASSIUM CHLORIDE 10 MEQ SR TABLET PO SCH ×2 (14:54→22:10)
[2017-02-11 16:00] VITALS: BP 160/52
[2017-02-11 20:00] VITALS: BP 168/77
[2017-02-11] MEDS: traZODone 50 MG TAB PO SCH (22:10)
[2017-02-12] VITALS (7 sets, daily range): BP systolic 110–180; BP diastolic 60–82
[2017-02-12] MEDS: SLF 3 ML SYR IV SCH ×3 (05:08→21:12)
[2017-02-12 05:33] LABS: MEAN CORPUSCULAR HEMOGLOBIN 32.6 pg (27.0-33.0); MEAN CORPUSCULAR HGB CONC 33.6 g/dl (32.0-36.5); MEAN CORPUSCULAR VOLUME 96.8 fl (80.0-96.0); RED CELL DISTRIBUTION WIDTH 14.4 % (11.5-14.5); WHITE BLOOD COUNT 5.5 K/mm3 (4.0-10.0)
[2017-02-12 05:53] LABS: ALBUMIN 2.8 GM/DL (3.2-5.2); ALKALINE PHOSPHATASE 30 U/L (45-117); ALT/SGPT 19 U/L (12-78); ANION GAP 4 MEQ/L (8-16); AST/SGOT 11 U/L (15-37); BILIRUBIN,TOTAL 0.9 MG/DL (0.2-1.0); BLOOD UREA NITROGEN 21 MG/DL (7-18); CALCIUM LEVEL 8.2 MG/DL (8.8-10.2); CARBON DIOXIDE LEVEL 30 MEQ/L (21-32); CHLORIDE LEVEL 107 MEQ/L (98-107); CREATININE FOR GFR 0.72 MG/DL (0.70-1.30); GLOMERULAR FILTRATION RATE > 60.0 (>42); GLUCOSE, FASTING 101 MG/DL (83-110); MAGNESIUM LEVEL 1.5 MG/DL (1.8-2.4); POTASSIUM SERUM 4.1 MEQ/L (3.5-5.1); SODIUM LEVEL 141 MEQ/L (136-145); TOTAL PROTEIN 5.9 GM/DL (6.4-8.2)
[2017-02-12] MEDS: ASPIRIN 81 MG ENTERIC TAB PO SCH (08:25)
[2017-02-12] MEDS: oxyBUTYnin 5 MG TAB PO SCH ×2 (08:25→21:12)
[2017-02-12] MEDS: busPIRone 5 MG TAB PO SCH ×2 (08:25→21:12)
[2017-02-12] MEDS: FLUDROCORTISONE ACETATE 0.1 MG TAB PO SCH (08:26)
[2017-02-12] MEDS: MAGNESIUM OXIDE 400 MG TAB (MAG-OX) PO SCH (08:26)
[2017-02-12] MEDS: LISINOPRIL 20 MG TAB PO SCH (08:26)
[2017-02-12] MEDS: PANTOPRAZOLE 40MG TAB (PROTONIX) PO SCH (08:26)
[2017-02-12] MEDS: amLODIPine 10 MG TAB PO SCH (08:26)
[2017-02-12] MEDS: POTASSIUM CHLORIDE 10 MEQ SR TABLET PO SCH ×2 (08:26→21:11)
[2017-02-12] MEDS: ENOXAPARIN 40 MG/0.4 ML SYRINGE (J1650) SC SCH (08:27)
--- NOTE | 2017-02-12 15:39 | IPNPDOC ---
Subjective Date Seen The patient was seen on 02/12/17. Subjective Chief Complaint/HPI The patient is a 76-year-old male admitted with a reason for visit of Hypertensive Urgency. Events since last encounter no complaints this am , bp well controlled , no fever or chills, no chest pain or sob , orthostatics negative this am. Objective Physical Examination General Exam: Positive: Alert, No Acute Distress Eye Exam: Positive: PERRLA, Conjunctiva & lids normal, EOMI, Negative: Sclera icteric ENT Exam: Positive: Atraumatic, Mucous membr. moist/pink, Pharynx Normal Neck Exam: Positive: Supple, Negative: JVD, thyromegaly Chest Exam: Positive: Clear to auscultation, Normal air movement Heart Exam: Positive: Rate Normal, Regular Rhythm, Normal S1, Normal S2, Negative: Murmurs, Rubs Telemetry: Positive: No significant arrhythmia Abdomen Exam: Positive: Normal bowel sounds, Soft, Negative: Tenderness, Hepatospenomegaly Extremity Exam: Positive: Normal pulses, Negative: Clubbing, Cyanosis, Edema Skin Exam: Positive: Nl turgor and temperature, Negative: Rash, Breakdown Assessment /Plan Problems (1) Hypertensive urgency Status: Acute Problem Text: possibility of B[place] in doppler US of the renal arterries will go for renal angiography tomorrow. will continue lisinopril and amlodipine. (2) Vertigo Status: Acute Response to Treatment: Improving Problem Text: due to orthostatic hypotension better after starting fludrocortisone (3) GERD (gastroesophageal reflux disease) Status: Chronic (4) Urinary incontinence Status: Chronic Problem Text: continue Oxybutynin (5) Depression Status: Chronic Problem Text: continue trazodone and buspirone. Plan/VTE VTE Prophylaxis Ordered?: Yes VS, I&O, 24H, Fishbone Vital Signs/I&O Vital Signs Date Time Temp Pulse Resp B/P (MAP) Pulse Ox O2 Delivery O2 Flow Rate FiO2 02/12/17 12:00 99.5 66 18 120/66 (84) 97 Room Air I&O- Last 24 Hours up to 6 AM 02/12/17 05:59 Intake Total 2160 ml Output Total 2725 ml Balance -565 ml Laboratory Data 24H LABS Laboratory Tests 2 02/12/17 05:11: Anion Gap 4L, Glomerular Filtration Rate > 60.0, Blood Urea Nitrogen 21H, Creatinine 0.72, Sodium Level 141, Potassium Level 4.1, Chloride Level 107, Carbon Dioxide Level 30, Calcium Level 8.2L, Aspartate Amino Transf (AST/SGOT) 11L, Alanine Aminotransferase (ALT/SGPT) 19, Alkaline Phosphatase 30L, Total Bilirubin 0.9, Total Protein 5.9L, Albumin 2.8L, Magnesium Level 1.5L, Albumin/ Globulin Ratio 0.90L CBC/BMP Laboratory Tests 02/12/17 05:11 Red Blood Count 3.10 L, Mean Corpuscular Volume 96.8 H, Mean Corpuscular Hemoglobin 32.6, Mean Corpuscular Hemoglobin Concent 33.6, Red Cell Distribution Width 14.4, Calcium Level 8.2 L, Aspartate Amino Transf (AST/SGOT) 11 L, Alanine Aminotransferase (ALT/SGPT) 19, Alkaline Phosphatase 30 L, Total Bilirubin 0.9, Total Protein 5.9 L, Albumin 2.8 L Microbiology Microbiology 02/06/17 Blood Culture - Final, Complete NO GROWTH AFTER 5 DAYS 02/06/17 Blood Culture - Final, Complete NO GROWTH AFTER 5 DAYS FREDI CAICEDO MD February 12, 2017 15:39
[2017-02-12] MEDS: traZODone 50 MG TAB PO SCH (21:11)
[2017-02-13] VITALS (7 sets, daily range): BP systolic 104–170; BP diastolic 51–80
[2017-02-13] MEDS: SLF 3 ML SYR IV SCH ×3 (05:50→20:20)
[2017-02-13 05:52] LABS: MEAN CORPUSCULAR HEMOGLOBIN 32.5 pg (27.0-33.0); MEAN CORPUSCULAR HGB CONC 33.3 g/dl (32.0-36.5); MEAN CORPUSCULAR VOLUME 97.6 fl (80.0-96.0); WHITE BLOOD COUNT 6.9 K/mm3 (4.0-10.0)
[2017-02-13 06:13] LABS: ALBUMIN 2.9 GM/DL (3.2-5.2); ALBUMIN/GLOBULIN RATIO 0.88 (1.00-1.93); ALKALINE PHOSPHATASE 31 U/L (45-117); ALT/SGPT 22 U/L (12-78); ANION GAP 6 MEQ/L (8-16); AST/SGOT 16 U/L (15-37); BILIRUBIN,TOTAL 0.7 MG/DL (0.2-1.0); BLOOD UREA NITROGEN 19 MG/DL (7-18); CALCIUM LEVEL 8.4 MG/DL (8.8-10.2); CARBON DIOXIDE LEVEL 29 MEQ/L (21-32); CHLORIDE LEVEL 106 MEQ/L (98-107); CREATININE FOR GFR 0.67 MG/DL (0.70-1.30); GLOMERULAR FILTRATION RATE > 60.0 (>42); GLUCOSE, FASTING 95 MG/DL (83-110); MAGNESIUM LEVEL 1.6 MG/DL (1.8-2.4); POTASSIUM SERUM 4.7 MEQ/L (3.5-5.1); SODIUM LEVEL 141 MEQ/L (136-145); TOTAL PROTEIN 6.2 GM/DL (6.4-8.2)
[2017-02-13] MEDS ORDERED: MIDAZOLAM INJ 2 MG/2 ML VIAL (J2250) As Ordered ONE (07:48)
[2017-02-13] MEDS ORDERED: SODIUM BICARBONATE 4 % INJ 2.4MEQ 5 ML VIAL (THIS HAS A PRESERVATIVE) As Ordered ONE (07:48)
[2017-02-13] MEDS ORDERED: fentaNYL 100 MCG/2 ML INJECTION (J3010) As Ordered ONE (07:48)
[2017-02-13] MEDS ORDERED: HEPARIN 1,000 UNITS/ML 10ML VIAL (FOR RADIOLOGY& DIALYSIS ONLY) As Ordered ONE (07:49)
[2017-02-13] MEDS ORDERED: ISOVUE-300 61% 50ML VIAL (Q9967) As Ordered ONE (07:49)
[2017-02-13] MEDS: amLODIPine 10 MG TAB PO SCH (07:52)
[2017-02-13] MEDS: LISINOPRIL 20 MG TAB PO SCH (07:52)
[2017-02-13] MEDS: ENOXAPARIN 40 MG/0.4 ML SYRINGE (J1650) SC SCH (09:00)
[2017-02-13] MEDS: ASPIRIN 81 MG ENTERIC TAB PO SCH (09:00)
[2017-02-13] MEDS: PANTOPRAZOLE 40MG TAB (PROTONIX) PO SCH (10:33)
[2017-02-13] MEDS: busPIRone 5 MG TAB PO SCH ×2 (10:33→20:19)
[2017-02-13] MEDS: MAGNESIUM OXIDE 400 MG TAB (MAG-OX) PO SCH ×2 (10:33→20:20)
[2017-02-13] MEDS: FLUDROCORTISONE ACETATE 0.1 MG TAB PO SCH (10:33)
[2017-02-13] MEDS: oxyBUTYnin 5 MG TAB PO SCH ×2 (10:33→20:19)
[2017-02-13] MEDS: POTASSIUM CHLORIDE 10 MEQ SR TABLET PO SCH ×2 (10:34→20:19)
--- NOTE | 2017-02-13 10:45 | IPNPDOC ---
Subjective Date Seen The patient was seen on 02/13/17. Subjective Chief Complaint/HPI The patient is a 76-year-old male admitted with a reason for visit of Hypertensive Urgency. Events since last encounter patient had renal angiogram today did not show any significant Renal artery stenosis. no other complaints. Objective Physical Examination General Exam: Positive: Alert, No Acute Distress Eye Exam: Positive: PERRLA, Conjunctiva & lids normal, EOMI, Negative: Sclera icteric ENT Exam: Positive: Atraumatic, Mucous membr. moist/pink, Pharynx Normal Neck Exam: Positive: Supple, Negative: JVD, thyromegaly Chest Exam: Positive: Clear to auscultation, Normal air movement Heart Exam: Positive: Rate Normal, Regular Rhythm, Normal S1, Normal S2, Negative: Murmurs, Rubs Telemetry: Positive: No significant arrhythmia Abdomen Exam: Positive: Normal bowel sounds, Soft, Negative: Tenderness, Hepatospenomegaly Extremity Exam: Positive: Normal pulses, Negative: Clubbing, Cyanosis, Edema Skin Exam: Positive: Nl turgor and temperature, Negative: Rash, Breakdown Assessment /Plan Problems (1) Hypertensive urgency Status: Acute Problem Text: possibility of B[place] in doppler US of the renal arterries however renal angiography did not show any significant renal artery stenosis. will continue lisinopril and amlodipine. (2) Vertigo Status: Acute Response to Treatment: Improving Problem Text: due to orthostatic hypotension better after starting fludrocortisone working better with PT. (3) GERD (gastroesophageal reflux disease) Status: Chronic (4) Urinary incontinence Status: Chronic Problem Text: continue Oxybutynin (5) Depression Status: Chronic Problem Text: continue trazodone and buspirone. Plan/VTE VTE Prophylaxis Ordered?: Yes VS, I&O, 24H, Fishbone Vital Signs/I&O Vital Signs Date Time Temp Pulse Resp B/P (MAP) Pulse Ox O2 Delivery O2 Flow Rate FiO2 02/13/17 07:52 124/69 02/13/17 07:52 74 02/13/17 06:00 98.5 17 98 Room Air I&O- Last 24 Hours up to 6 AM 02/13/17 06:00 Intake Total 2640 ml Output Total 2566 ml Balance 74 ml Laboratory Data 24H LABS Laboratory Tests 2 02/13/17 05:26: Anion Gap 6L, Glomerular Filtration Rate > 60.0, Blood Urea Nitrogen 19H, Creatinine 0.67L, Sodium Level 141, Potassium Level 4.7, Chloride Level 106, Carbon Dioxide Level 29, Calcium Level 8.4L, Aspartate Amino Transf (AST/SGOT) 16, Alanine Aminotransferase (ALT/SGPT) 22, Alkaline Phosphatase 31L, Total Bilirubin 0.7, Total Protein 6.2L, Albumin 2.9L, Magnesium Level 1.6L, Albumin/ Globulin Ratio 0.88L CBC/BMP Laboratory Tests 02/13/17 05:26 Red Blood Count 3.23 L, Mean Corpuscular Volume 97.6 H, Mean Corpuscular Hemoglobin 32.5, Mean Corpuscular Hemoglobin Concent 33.3, Red Cell Distribution Width 14.0, Calcium Level 8.4 L, Aspartate Amino Transf (AST/SGOT) 16, Alanine Aminotransferase (ALT/SGPT) 22, Alkaline Phosphatase 31 L, Total Bilirubin 0.7, Total Protein 6.2 L, Albumin 2.9 L Microbiology Microbiology 02/06/17 Blood Culture - Final, Complete NO GROWTH AFTER 5 DAYS 02/06/17 Blood Culture - Final, Complete NO GROWTH AFTER 5 DAYS FREDI CAICEDO MD February 13, 2017 10:45
--- NOTE | 2017-02-13 17:20 | REPKIM ---
CLINICAL HISTORY: Patient presents with HTN crisis and suspected renal artery stenosis as documented by the recent duplex ultrasound study. The referring service has asked a renal arteriogram/possible intervention. PROCEDURE PERFORMED: 1. Abdominal Aortogram 2. Selective Bilateral Renal Arteriograms INTERVENTIONALIST: Sree Yo MD CONSENT: The risks, benefits and alternatives to the procedure were explained to the patient and informed written consent was obtained. MEDICATIONS: Local Lidocaine 2%, Fentanyl IV and Versed IV. SEDATION: Anxiolytic conscious sedation using Versed 1.0 mg IV and Fentanyl 50 mcg IV; starting time at 0815 and end at 0930. Independent trained observer was present during the entire duration of the conscious sedation for monitoring. CONTRAST: 66 mL Isovue 300 EBL: less than 25 mL FLUORO TIME: 19.6 minutes PROCEDURE/FINDINGS: ABDOMINAL AORTOGRAM: The patient was brought to the interventional radiology suite where a timeout procedure was performed. The patient was placed in the supine position and the right groin prepped and draped in a sterile fashion. Local anesthetic was established using 2% Lidocaine. A 4-Qatari vascular sheath was introduced into the right common femoral artery using the Seldinger technique with a 25-gauge micropuncture needle under ultrasound guidance. Over a guidewire, a 4-Qatari Omniflush catheter was advanced and under fluoroscopy positioned in the abdominal aorta just above the level of the renal arteries. Dilute contrast was injected and abdominal aortogram was performed in the shallow MASON projection. This showed a classic anatomy. SELECTIVE BILATERAL RENAL ARTERIOGRAMS: Catheter exchange was performed and a 4-Qatari selective catheter was advanced over a guidewire. Selective catheterizations of the ostium of the left and right renal arteries were performed. Dilute contrast was injected and selective renal arteriograms were performed. The catheter and sheath were removed and hemostasis achieved by manual compression over the puncture sites. The patient tolerated the procedure well with no immediate complications. This procedure was performed with fluoroscopic guidance. Dr. Yo was present. FINDINGS: 1. The visualized abdominal aorta is widely patent with no significant stenosis or aneurysmal dilation. There is severe tortuosity of bilateral iliac arteries without significant stenosis. 2. There is a single renal artery bilaterally with no significant ostial stenosis. 3. Selective renal arteriogram demonstrates no significant renal artery stenosis , AVF or vessel truncation. IMPRESSION: There is a single renal artery bilaterally. The left renal artery is widely patent with no stenosis. The right renal artery is tortuous with a looping without significant stenosis. cc: DO Olena Croft MD Joseph Wetterhahn, MD MTDD
[2017-02-13] MEDS: traZODone 50 MG TAB PO SCH (20:20)
[2017-02-14] MEDS: SLF 3 ML SYR IV SCH (05:53)
[2017-02-14 06:01] VITALS: BP_SYST 140; BP_SYST 152; BP_SYST 159; BP_DIAS 52; BP_DIAS 60; BP_DIAS 72
[2017-02-14 06:20] LABS: MEAN CORPUSCULAR HEMOGLOBIN 33.1 pg (27.0-33.0); MEAN CORPUSCULAR VOLUME 97.4 fl (80.0-96.0); RED CELL DISTRIBUTION WIDTH 13.9 % (11.5-14.5); WHITE BLOOD COUNT 5.2 K/mm3 (4.0-10.0)
[2017-02-14 06:28] LABS: ALBUMIN 2.7 GM/DL (3.2-5.2); ALBUMIN/GLOBULIN RATIO 0.84 (1.00-1.93); ALKALINE PHOSPHATASE 31 U/L (45-117); ALT/SGPT 16 U/L (12-78); ANION GAP 4 MEQ/L (8-16); AST/SGOT 11 U/L (15-37); BILIRUBIN,TOTAL 0.8 MG/DL (0.2-1.0); BLOOD UREA NITROGEN 21 MG/DL (7-18); CALCIUM LEVEL 8.4 MG/DL (8.8-10.2); CARBON DIOXIDE LEVEL 29 MEQ/L (21-32); CHLORIDE LEVEL 107 MEQ/L (98-107); CREATININE FOR GFR 0.74 MG/DL (0.70-1.30); GLOMERULAR FILTRATION RATE > 60.0 (>42); GLUCOSE, FASTING 103 MG/DL (83-110); MAGNESIUM LEVEL 1.8 MG/DL (1.8-2.4); SODIUM LEVEL 140 MEQ/L (136-145); TOTAL PROTEIN 5.9 GM/DL (6.4-8.2)
[2017-02-14] MEDS: ASPIRIN 81 MG ENTERIC TAB PO SCH (08:04)
[2017-02-14 08:05] VITALS: BP 140/52
[2017-02-14] MEDS: MAGNESIUM OXIDE 400 MG TAB (MAG-OX) PO SCH (08:05)
[2017-02-14] MEDS: oxyBUTYnin 5 MG TAB PO SCH (08:05)
[2017-02-14] MEDS: LISINOPRIL 20 MG TAB PO SCH (08:05)
[2017-02-14] MEDS: PANTOPRAZOLE 40MG TAB (PROTONIX) PO SCH (08:05)
[2017-02-14] MEDS: FLUDROCORTISONE ACETATE 0.1 MG TAB PO SCH (08:05)
[2017-02-14] MEDS: busPIRone 5 MG TAB PO SCH (08:05)
[2017-02-14] MEDS: amLODIPine 10 MG TAB PO SCH (08:05)
[2017-02-14] MEDS: ENOXAPARIN 40 MG/0.4 ML SYRINGE (J1650) SC SCH (08:06)
[2017-02-14] MEDS: POTASSIUM CHLORIDE 10 MEQ SR TABLET PO SCH (09:00)
[2017-02-14] MEDS ORDERED: LISI-538 PO (10:02)
[2017-02-14] MEDS ORDERED: TRAZO50TA PO (10:02)
[2017-02-14] MEDS ORDERED: AMLO10TA2 PO (10:02)
[2017-02-14 14:16] LABS: URINE METANEPHR/CREAT RATIO 0.3 (0.0-1.0)
--- NOTE | 2017-02-15 22:15 | DSES ---
DATE OF ADMISSION: 02/08/2017 DATE OF DISCHARGE: 02/14/2017 PRIMARY CARE PROVIDER: Gregory Gillette DISCHARGE DIAGNOSES: Hypertensive urgency. Orthostatic hypotension. Vertigo. Gastroesophageal reflux disease (GERD). Depression. Urinary incontinence. Pneumonia diagnosed outpatient finished antibiotics in hospital. DISCHARGE MEDICATIONS: - amlodipine 10 mg by mouth daily - lisinopril 20 mg by mouth daily - trazodone 50 mg at bedtime - aspirin 81 mg daily - buspirone 15 mg by mouth twice a day - fludrocortisone 0.1 mg by mouth daily - oxybutynin 5 mg by mouth twice a day - pantoprazole 40 mg by mouth daily - tramadol 50 mg by mouth four times a day as needed pain - ibuprofen 600 mg by mouth three times a day as needed pain HOSPITAL COURSE: This is a 76-year-old male who presented to the hospital with dizziness and presyncope. The patient was found to have blood pressure of more than 200 systolic and more than 90 diastolic which subsequently during the emergency room stay went up further to 220 by 110. The patient was diagnosed with hypertensive urgency. The patient was also under treatment for pneumonia as an outpatient, so the antibiotics were continued to finish the course. The patient was noted to have orthostatic hypotension with some bouts of dizziness and vertigo so his presyncope was felt to be due to this. The patient was monitored in telemetry without any cardiac arrhythmias. Because of his hypertensive urgency, the patient underwent Doppler ultrasound of renal arteries, which showed suggestions of renal artery stenosis, so subsequently the patient underwent renal artery angiogram on February 13, 2017, which did not show any significant renal artery stenosis. The patient responded well to the antihypertensive medications started in the hospital with well control of his blood pressure. The patient was evaluated by physical therapy. At present the patient was found to be below his functional baseline, however, after a few sessions of physical therapy (PT) he was back to his baseline functional status and was cleared from their respect to be discharged home. On the day of discharge, the patient did not have any complaints. Vitals were stable and patient was functioning at his baseline. PHYSICAL EXAMINATION: VITAL SIGNS: Temperature 99.6, pulse 62, blood pressure 140/52, pulse oximetry 96% on room air. Respiratory rate 217. GENERAL: The patient awake, alert, oriented times three, sitting up in bed, in no acute distress. HEENT: Normocephalic, atraumatic. Moist mucous membranes, anicteric eyes. CHEST: Clear to auscultation. CARDIOVASCULAR: S1, S2, regular. No rub, murmur or gallop. ABDOMEN: Soft, nontender. Bowel sounds present. EXTREMITIES: No edema. LABORATORY DATA: WBC 5.2, hemoglobin 10, platelets 230, sodium 140, potassium 5, chloride 107, bicarbonate 29, BUN 21, creatinine 0.7, glucose 103, calcium 8.4, magnesium 1.8. Liver function tests are normal. Urine: Normal metanephrine levels. Random: Read normal. DISPOSITION: The patient is discharged home in stable condition. DISCHARGE INSTRUCTIONS: Patient to followup with primary care provider in one week. 2 gram sodium diet. Activity as tolerated. MTDD
== END 2017-02-14 12:06 | disposition home or self-care (01) | DRG 304 ==
LOC: M ED 20:12 → INTOOBSV 21:27 → M ED INP 21:27 → M ICU 23:36 → M MSPAV 02-07 12:14 → OBSVTOIN 02-08 13:57 → M PCU 02-09 09:12 → M MSPAV 02-12 18:49
PROVIDERS: ADMIT Internal Medicine; ATTEND Hospitalist
PROC: B418YZZ Fluoroscopy of Bilateral Renal Arteries using Other Contrast (ICD-10-PCS; principal; 2017-02-13)
DX: I16.0 Hypertensive urgency (principal); J18.9 Pneumonia, unspecified organism; R42 Dizziness and giddiness; I95.2 Hypotension due to drugs; R32 Unspecified urinary incontinence; K21.9 Gastro-esophageal reflux disease without esophagitis; E83.42 Hypomagnesemia; G47.00 Insomnia, unspecified; F32.9 Major depressive disorder, single episode, unspecified; Z79.82 Long term (current) use of aspirin; Z79.899 Other long term (current) drug therapy; Z88.0 Allergy status to penicillin; Z88.2 Allergy status to sulfonamides; T46.5X5A Adverse effect of other antihypertensive drugs, initial encounter

== ENCOUNTER 2017-08-06 10:58 | Emergency (ER) | payer MEDICARE ==
[~2017-08-06] VITALS: Ht 172.7 cm; Wt 65.4 kg
[~2017-08-06 10:58] MED LIST changes: +AMLO10TA2 PO; +ASPI1TAB15 PO; +ASPI81TA85 PO; +BUSP10TA PO; +BUSP15TA47 PO; +FLUD0.1T PO; +IBUP1TAB6 PO; +LISI-538 PO; +MECL-86 PO; +OXYB5TAB10 PO; +PANT40TA2 PO; +TRAM50TA2 PO; +TRAZ-136 PO; +TRAZO50TA PO
[2017-08-06] MEDS ORDERED: TERA10CA3 PO (11:10)
[2017-08-06] MEDS ORDERED: OMEP40CA2 PO (11:10)
--- NOTE | 2017-08-06 12:02 | REP ---
Clinical: Cough . Comparison: 02/09/2017 . Technique: PA and lateral. Findings: The mediastinum and cardiac silhouette are normal. The lung michaud demonstrate mild chronic changes without acute consolidation, effusion, or pneumothorax. The skeletal structures are intact and normal. Impression: 1. No acute cardiopulmonary process. Signed by Cyril Ashley MD 08/06/2017 11:52 A
[2017-08-06] MEDS ORDERED: AZITHROMYCIN 250 MG TAB PO ONE (13:45)
[2017-08-06] MEDS ORDERED: predniSONE 20 MG TAB PO ONE (13:45)
[2017-08-06] MEDS ORDERED: PRED10TA2 PO (13:46)
[2017-08-06] MEDS ORDERED: ZITHTAB PO (13:46)
[2017-08-06 13:55] VITALS: BP 123/65
== END 2017-08-06 14:09 | disposition home or self-care (01) ==
LOC: M ED 10:58
DX: J20.9 Acute bronchitis, unspecified (principal); R04.2 Hemoptysis; I25.10 Atherosclerotic heart disease of native coronary artery without angina pectoris; M54.5 Low back pain; N52.9 Male erectile dysfunction, unspecified; E29.1 Testicular hypofunction; I25.2 Old myocardial infarction; N40.0 Benign prostatic hyperplasia without lower urinary tract symptoms; Z87.19 Personal history of other diseases of the digestive system; Z79.899 Other long term (current) drug therapy; Z79.82 Long term (current) use of aspirin; Z88.0 Allergy status to penicillin; Z88.2 Allergy status to sulfonamides; Z88.5 Allergy status to narcotic agent

== ENCOUNTER 2017-12-10 09:38 | Emergency (ER) | payer MEDICARE ==
[2017-12-10 10:17] LABS: BASO % 0.1 % (0.0-1.0); EOS # 0.2 10^3/uL (0.0-0.50); EOS % 3.2 % (0.0-3.0); HEMATOCRIT 29.4 % (42.0-52.0); HEMOGLOBIN 9.8 g/dl (14.0-18.0); IMMATURE GRANULOCYTE % 0.4 % (0-3.0); LYMPH % 14.5 % (24.0-44.0); MEAN CORPUSCULAR HEMOGLOBIN 32.2 pg (27.0-33.0); MEAN CORPUSCULAR HGB CONC 33.3 g/dl (32.0-36.5); MEAN CORPUSCULAR VOLUME 96.7 fl (80.0-96.0); MONO # 0.4 10^3/uL (0.0-0.8); MONO % 6.2 % (0.0-5.0); NEUTROPHILS # 5.2 10^3/uL (1.8-7.7); NEUTROPHILS % 75.6 % (36.0-66.0); PLATELET COUNT, AUTOMATED 250 10^3/uL (150-450); RED BLOOD COUNT 3.04 10^6/uL (4.30-6.10); RED CELL DISTRIBUTION WIDTH 13.6 % (11.5-14.5); WHITE BLOOD COUNT 6.9 10^3/uL (4.0-10.0)
[2017-12-10 10:44] LABS: ALBUMIN/GLOBULIN RATIO 1.07 (1.00-1.93); ALKALINE PHOSPHATASE 31 U/L (45-117); ALT/SGPT 11 U/L (12-78); ANION GAP 8 MEQ/L (8-16); AST/SGOT 15 U/L (7-37); BILIRUBIN,DIRECT 0.2 MG/DL (0.0-0.2); BILIRUBIN,TOTAL 0.5 MG/DL (0.2-1.0); BLOOD UREA NITROGEN 19 MG/DL (7-18); CALCIUM LEVEL 7.8 MG/DL (8.8-10.2); CARBON DIOXIDE LEVEL 25 MEQ/L (21-32); CHLORIDE LEVEL 110 MEQ/L (98-107); CPK CREATINE PHOSPHOKINASE 48 U/L (39-308); CREATININE FOR GFR 0.88 MG/DL (0.70-1.30); GLOMERULAR FILTRATION RATE > 60.0 (>42); GLUCOSE, FASTING 90 MG/DL (70-100); POTASSIUM SERUM 3.3 MEQ/L (3.5-5.1); SODIUM LEVEL 143 MEQ/L (136-145); TOTAL PROTEIN 5.8 GM/DL (6.4-8.2); TROPONIN I < 0.02 NG/ML (< 0.10)
[2017-12-10 10:44] LABS: NT-PRO BNP 1424 PG/ML (<450)
[2017-12-10 10:50] LABS: CK-MB VALUE MASS < 1.0 NG/ML (<3.6); MB/CK RELATIVE INDEX 2.08 (< OR =4)
[2017-12-10 11:10] LABS: PARTIAL THROMBOPLASTIN TIME 36.4 SECONDS (26.8-37.9)
[2017-12-10] MEDS ORDERED: ISOVUE-370 76% 100ML VIAL (Q9967) As Ordered (11:22)
[2017-12-10 11:51] LABS: LACTIC ACID SEPSIS PROTOCOL 0.8 MMOL/L (0.4-2.0)
== END 2017-12-10 13:28 | disposition home or self-care (01) ==
LOC: M ED 09:38
DX: R04.2 Hemoptysis (principal); K20.9 Esophagitis, unspecified; R91.8 Other nonspecific abnormal finding of lung field; I11.0 Hypertensive heart disease with heart failure; I50.9 Heart failure, unspecified; E78.5 Hyperlipidemia, unspecified; M48.00 Spinal stenosis, site unspecified; Z79.899 Other long term (current) drug therapy; Z88.0 Allergy status to penicillin; Z88.5 Allergy status to narcotic agent; Z88.2 Allergy status to sulfonamides
CPT/HCPCS: Q9967

== ENCOUNTER → 2018-04-14 | Outpatient (CLI) | payer MEDICARE ==
[2018-04-14 17:15] LABS: ANION GAP 9 MEQ/L (8-16); BLOOD UREA NITROGEN 19 MG/DL (7-18); CALCIUM LEVEL 8.7 MG/DL (8.8-10.2); CARBON DIOXIDE LEVEL 27 MEQ/L (21-32); CHLORIDE LEVEL 106 MEQ/L (98-107); CREATININE FOR GFR 0.99 MG/DL (0.70-1.30); GLOMERULAR FILTRATION RATE > 60.0 (>42); GLUCOSE, FASTING 90 MG/DL (70-100); POTASSIUM SERUM 4.6 MEQ/L (3.5-5.1); SODIUM LEVEL 142 MEQ/L (136-145)
== END ==
LOC: M WUC 12:11
DX: I10 Essential (primary) hypertension (principal)
CPT/HCPCS: 80048

== ENCOUNTER → 2018-04-18 | Outpatient (CLI) | payer MEDICARE ==
[~2018-04-18] MED LIST changes: -/FEXO18TA OR; -/FEXO18TA PO; -ALBU17IN2 IN; -AMLO10TA OR; -AMLO10TA2 PO; -ASPI1TAB15 PO; -ASPI81TA83 PO; -ASPI81TA85 PO; -ATROVENT0.02% INH; -BUSP10TA PO; -BUSP10TA2 PO; -BUSP15TA47 PO; -COLA100C2 OR; -Cardizem CD PO; -FIBER LAXATIVE PO; -FLUD0.1T PO; -HYDR25TA6 PO; -IBUP1TAB6 PO; +ISOVUE-370 76% 100ML VIAL (Q9967) As Ordered; -LEVA750T OR; -LISI-538 PO; -MECL-68 PO; -MECL-86 PO; -METOPROLOL TARTRATE PO; -MIRALEX PO; -MUCINEX PO; -OMEP20TA7 PO; -OXYB5TAB10 PO; -PANT20TA PO; -PANT40TA2 PO; -SLOWTAB PO; -TRAM50TA2 OR; -TRAM50TA2 PO; -TRAZ-136 PO; -TRAZ100T PO; -TRAZO50TA PO; -TRICOR PO; -ZITHTAB PO; -[UNRECOGNIZED DRUG - OTHER] PO
== END ==
LOC: M RAD 10:02
DX: R93.8 Abnormal findings on diagnostic imaging of other specified body structures (principal)
CPT/HCPCS: Q9967

== ENCOUNTER 2018-05-02 19:23 | Inpatient (IN) | payer MEDICARE ==
[2018-05-02 21:15] LABS: BASO % 0.1 % (0.0-1.0); HEMATOCRIT 37.7 % (42.0-52.0); HEMOGLOBIN 12.6 g/dl (13.5-17.5); IMMATURE GRANULOCYTE % 0.4 % (0-3.0); LYMPH # 0.7 10^3/uL (1.5-4.5); MEAN CORPUSCULAR HEMOGLOBIN 32.4 pg (27.0-33.0); MEAN CORPUSCULAR HGB CONC 33.4 g/dl (32.0-36.5); MEAN CORPUSCULAR VOLUME 96.9 fl (80.0-96.0); MONO # 0.7 10^3/uL (0.0-0.8); MONO % 5.1 % (0.0-5.0); NEUTROPHILS # 12.4 10^3/uL (1.8-7.7); NEUTROPHILS % 89.4 % (36.0-66.0); PLATELET COUNT, AUTOMATED 347 10^3/uL (150-450); RED BLOOD COUNT 3.89 10^6/uL (4.30-6.10); RED CELL DISTRIBUTION WIDTH 14.6 % (11.5-14.5); WHITE BLOOD COUNT 13.9 10^3/uL (4.0-10.0)
[2018-05-02 21:29] LABS: ALBUMIN 3.6 GM/DL (3.2-5.2); ALBUMIN/GLOBULIN RATIO 1.03 (1.00-1.93); ALKALINE PHOSPHATASE 63 U/L (45-117); ALT/SGPT 134 U/L (12-78); AMYLASE 110 U/L (25-115); ANION GAP 10 MEQ/L (8-16); AST/SGOT 51 U/L (7-37); BILIRUBIN,DIRECT 0.4 MG/DL (0.0-0.2); BILIRUBIN,TOTAL 1.2 MG/DL (0.2-1.0); BLOOD UREA NITROGEN 34 MG/DL (7-18); CALCIUM LEVEL 8.9 MG/DL (8.8-10.2); CARBON DIOXIDE LEVEL 23 MEQ/L (21-32); CHLORIDE LEVEL 104 MEQ/L (98-107); CREATININE FOR GFR 2.02 MG/DL (0.70-1.30); GLOMERULAR FILTRATION RATE 34.5 (>42); GLUCOSE, FASTING 148 MG/DL (70-100); LIPASE 112 U/L (73-393); SODIUM LEVEL 137 MEQ/L (136-145); TOTAL PROTEIN 7.1 GM/DL (6.4-8.2)
[2018-05-02 21:36] LABS: POTASSIUM SERUM 5.3 MEQ/L (3.5-5.1)
[2018-05-02] MEDS: NS 1,000 ML IV (23:05)
[2018-05-02 23:46] LABS: KETONE, URINE AUTO RFX TRACE mg/dL (NEGATIVE); LEUKOCYTE ESTERASE UR AUTO RFX NEGATIVE (NEGATIVE); NITRITE, URINE AUTO RFX NEGATIVE (NEGATIVE); RBC, URINE AUTO RFX 3 /HPF (0-3); SPECIFIC GRAVITY UR AUTO RFX 1.028 (1.002-1.035); SQUAM EPITHELIAL CELL UR AURFX 0 /HPF (0-6); WBC, URINE AUTO RFX 12 /HPF (0-3)
[2018-05-03] MEDS: NS 1,000 ML IV (00:15)
[2018-05-03] MEDS: PANTOPRAZOLE 40MG INJ (PROTONIX) (C9113) IV ×2 (01:00→13:04)
[2018-05-03] MEDS: cefTRIAXone SOD 1 GM in D5W MINI-BAG PLUS 50 ML IV (01:00)
[2018-05-03] MEDS: GI COCKTAIL 50ML BTL(HYOSCYAMINE/MAALOX/LIDOCAINE VISCOUS)(1:3:1) PO (01:08)
[2018-05-03] MEDS: metroNIDAZOLE 500 MG in APPROPRIATE DILUENT 1 EA IV ×3 (03:11→17:44)
[2018-05-03] MEDS: MORPHINE 4 MG/ML 1ML VIAL/SYRINGE (J2270) IV ×2 (05:45→10:49)
[2018-05-03] MEDS: ONDANSETRON 4MG/2ML VIAL (J2405) IV (05:45)
[2018-05-03] MEDS: HEPARIN SOD (PORCINE) 5000 UNITS/ML VIAL SC (06:00)
[2018-05-03 08:08] LABS: BASO % 0.1 % (0.0-1.0); HEMATOCRIT 31.3 % (42.0-52.0); HEMOGLOBIN 10.7 g/dl (13.5-17.5); IMMATURE GRANULOCYTE % 0.2 % (0-3.0); LYMPH # 1.4 10^3/uL (1.5-4.5); LYMPH % 14.7 % (24.0-44.0); MEAN CORPUSCULAR HEMOGLOBIN 32.8 pg (27.0-33.0); MEAN CORPUSCULAR HGB CONC 34.2 g/dl (32.0-36.5); MONO # 0.7 10^3/uL (0.0-0.8); MONO % 7.3 % (0.0-5.0); NEUTROPHILS # 7.4 10^3/uL (1.8-7.7); NEUTROPHILS % 77.7 % (36.0-66.0); PLATELET COUNT, AUTOMATED 299 10^3/uL (150-450); RED BLOOD COUNT 3.26 10^6/uL (4.30-6.10); RED CELL DISTRIBUTION WIDTH 14.7 % (11.5-14.5); WHITE BLOOD COUNT 9.6 10^3/uL (4.0-10.0)
[2018-05-03 08:23] LABS: ALBUMIN 2.8 GM/DL (3.2-5.2); ALBUMIN/GLOBULIN RATIO 1.08 (1.00-1.93); ALKALINE PHOSPHATASE 48 U/L (45-117); ALT/SGPT 89 U/L (12-78); ANION GAP 10 MEQ/L (8-16); AST/SGOT 33 U/L (7-37); BILIRUBIN,TOTAL 0.9 MG/DL (0.2-1.0); BLOOD UREA NITROGEN 35 MG/DL (7-18); CALCIUM LEVEL 8.2 MG/DL (8.8-10.2); CARBON DIOXIDE LEVEL 23 MEQ/L (21-32); CHLORIDE LEVEL 108 MEQ/L (98-107); CREATININE FOR GFR 1.39 MG/DL (0.70-1.30); GLUCOSE, FASTING 106 MG/DL (70-100); SODIUM LEVEL 141 MEQ/L (136-145); TOTAL PROTEIN 5.4 GM/DL (6.4-8.2)
[2018-05-03] MEDS: CIPROFLOXACIN 200 MG in APPROPRIATE DILUENT 1 EA IV ×2 (08:47→20:16)
[2018-05-03] MEDS ORDERED: amLODIPine 5 MG TAB PO (09:00)
[2018-05-03 09:01] LABS: LACTIC ACID SEPSIS PROTOCOL 1.5 MMOL/L (0.4-2.0)
[2018-05-03] MEDS: D5W/0.45% SODIUM CHLORIDE 1,000 ML IV ×3 (10:49→23:18)
[2018-05-03 15:05] LABS: HEMATOCRIT 30.6 % (42.0-52.0); HEMOGLOBIN 10.2 g/dl (13.5-17.5)
[2018-05-03 21:39] LABS: OSMOLALITY URINE 506 MOSM/KG (500-800)
[2018-05-03 22:00] LABS: CHLORIDE,RANDOM URINE 92 MEQ/L; CREATININE,RANDOM URINE 76.7 MG/DL; POTASSIUM RANDOM URINE 27.7 MEQ/L; SODIUM,RANDOM URINE 80 MEQ/L; TOTAL PROTEIN,RANDOM URINE 16.7 MG/DL (0.0-12.0)
[2018-05-04] MEDS: PANTOPRAZOLE 40MG INJ (PROTONIX) (C9113) IV ×2 (01:09→13:21)
[2018-05-04] MEDS: metroNIDAZOLE 500 MG in APPROPRIATE DILUENT 1 EA IV ×3 (01:13→17:20)
[2018-05-04 06:20] LABS: BASO % 0.4 % (0.0-1.0); EOS # 0.1 10^3/uL (0.0-0.50); EOS % 0.9 % (0.0-3.0); HEMATOCRIT 26.5 % (42.0-52.0); HEMOGLOBIN 8.8 g/dl (13.5-17.5); IMMATURE GRANULOCYTE % 0.3 % (0-3.0); LYMPH # 1.5 10^3/uL (1.5-4.5); LYMPH % 18.9 % (24.0-44.0); MEAN CORPUSCULAR HEMOGLOBIN 31.9 pg (27.0-33.0); MEAN CORPUSCULAR HGB CONC 33.2 g/dl (32.0-36.5); MONO # 0.7 10^3/uL (0.0-0.8); MONO % 8.4 % (0.0-5.0); NEUTROPHILS # 5.5 10^3/uL (1.8-7.7); NEUTROPHILS % 71.1 % (36.0-66.0); PLATELET COUNT, AUTOMATED 250 10^3/uL (150-450); RED BLOOD COUNT 2.76 10^6/uL (4.30-6.10); RED CELL DISTRIBUTION WIDTH 14.8 % (11.5-14.5); WHITE BLOOD COUNT 7.7 10^3/uL (4.0-10.0)
[2018-05-04 06:53] LABS: ALBUMIN 2.7 GM/DL (3.2-5.2); ALBUMIN/GLOBULIN RATIO 1.08 (1.00-1.93); ALKALINE PHOSPHATASE 47 U/L (45-117); ALT/SGPT 63 U/L (12-78); ANION GAP 6 MEQ/L (8-16); AST/SGOT 28 U/L (7-37); BLOOD UREA NITROGEN 24 MG/DL (7-18); CALCIUM LEVEL 8.2 MG/DL (8.8-10.2); CARBON DIOXIDE LEVEL 25 MEQ/L (21-32); CHLORIDE LEVEL 109 MEQ/L (98-107); CREATININE FOR GFR 1.05 MG/DL (0.70-1.30); GLOMERULAR FILTRATION RATE > 60.0 (>42); GLUCOSE, FASTING 107 MG/DL (70-100); POTASSIUM SERUM 4.4 MEQ/L (3.5-5.1); SODIUM LEVEL 140 MEQ/L (136-145); TOTAL PROTEIN 5.2 GM/DL (6.4-8.2)
[2018-05-04] MEDS: CIPROFLOXACIN 200 MG in APPROPRIATE DILUENT 1 EA IV ×2 (08:08→20:29)
[2018-05-04] MEDS: D5W/0.45% SODIUM CHLORIDE 1,000 ML IV ×2 (08:08→10:01)
[2018-05-04] MEDS ORDERED: FLEET ENEMA PR (10:15)
[2018-05-04] MEDS ORDERED: PROPOFOL 200 MG/20 ML VIAL As Ordered ×2 (13:40→14:35)
[2018-05-04] MEDS ORDERED: fentaNYL 100 MCG/2 ML INJECTION (J3010) IV (15:00)
[2018-05-04] MEDS ORDERED: PERCOCET 5MG/325MG TAB PO (15:00)
[2018-05-04] MEDS: LR 1,000 ML IV (15:00)
[2018-05-04] MEDS ORDERED: ONDANSETRON 4MG/2ML VIAL (J2405) IV (15:00)
[2018-05-04] MEDS ORDERED: HYDROMORPHONE HCL 0.5 MG/ 0.5 ML SYRINGE (J1170 PER 1) IV (15:00)
[2018-05-04 15:51] LABS: HEMATOCRIT 27.3 % (42.0-52.0); HEMOGLOBIN 8.9 g/dl (13.5-17.5)
[2018-05-05] MEDS: PANTOPRAZOLE 40MG INJ (PROTONIX) (C9113) IV ×2 (01:11→12:39)
[2018-05-05] MEDS: metroNIDAZOLE 500 MG in APPROPRIATE DILUENT 1 EA IV ×3 (01:15→18:09)
[2018-05-05 06:11] LABS: ALBUMIN 2.5 GM/DL (3.2-5.2); ALBUMIN/GLOBULIN RATIO 0.93 (1.00-1.93); ALKALINE PHOSPHATASE 39 U/L (45-117); ALT/SGPT 53 U/L (12-78); ANION GAP 7 MEQ/L (8-16); AST/SGOT 21 U/L (7-37); BASO % 0.2 % (0.0-1.0); BILIRUBIN,TOTAL 0.6 MG/DL (0.2-1.0); BLOOD UREA NITROGEN 12 MG/DL (7-18); CALCIUM LEVEL 7.9 MG/DL (8.8-10.2); CARBON DIOXIDE LEVEL 25 MEQ/L (21-32); CHLORIDE LEVEL 111 MEQ/L (98-107); CREATININE FOR GFR 0.85 MG/DL (0.70-1.30); EOS # 0.2 10^3/uL (0.0-0.50); EOS % 4.1 % (0.0-3.0); GLOMERULAR FILTRATION RATE > 60.0 (>42); GLUCOSE, FASTING 109 MG/DL (70-100); HEMATOCRIT 24.5 % (42.0-52.0); HEMOGLOBIN 8.2 g/dl (13.5-17.5); IMMATURE GRANULOCYTE % 0.2 % (0-3.0); LYMPH # 1.5 10^3/uL (1.5-4.5); LYMPH % 28.3 % (24.0-44.0); MAGNESIUM LEVEL 1.5 MG/DL (1.8-2.4); MEAN CORPUSCULAR HEMOGLOBIN 32.7 pg (27.0-33.0); MEAN CORPUSCULAR HGB CONC 33.5 g/dl (32.0-36.5); MEAN CORPUSCULAR VOLUME 97.6 fl (80.0-96.0); MONO # 0.5 10^3/uL (0.0-0.8); MONO % 9.8 % (0.0-5.0); NEUTROPHILS # 3.1 10^3/uL (1.8-7.7); NEUTROPHILS % 57.4 % (36.0-66.0); PLATELET COUNT, AUTOMATED 241 10^3/uL (150-450); POTASSIUM SERUM 3.9 MEQ/L (3.5-5.1); RED BLOOD COUNT 2.51 10^6/uL (4.30-6.10); RED CELL DISTRIBUTION WIDTH 14.5 % (11.5-14.5); SODIUM LEVEL 143 MEQ/L (136-145); TOTAL PROTEIN 5.2 GM/DL (6.4-8.2); WHITE BLOOD COUNT 5.4 10^3/uL (4.0-10.0)
[2018-05-05] MEDS: D5W/0.45% SODIUM CHLORIDE 1,000 ML IV ×2 (06:16→18:09)
[2018-05-05] MEDS: CIPROFLOXACIN 200 MG in APPROPRIATE DILUENT 1 EA IV ×2 (08:55→19:34)
[2018-05-05] MEDS: MAG SULF 1GM/100ML (MAG RUN) 1 GM in APPROPRIATE DILUENT 1 EA IV (10:05)
[2018-05-05] MEDS: LISINOPRIL 20 MG TAB PO (10:36)
[2018-05-05 14:19] LABS: HEMOGLOBIN 9.1 g/dl (13.5-17.5)
[2018-05-05 15:11] LABS: IMMEDIATE SPIN CROSSMATCH 1 1
[2018-05-05] MEDS ORDERED: FUROSEMIDE 20 MG TAB PO (18:30)
[2018-05-05] MEDS: FUROSEMIDE 20 MG/2 ML VIAL (J1940) IV (19:34)
[2018-05-05] MEDS: traZODone 50 MG TAB PO (21:07)
[2018-05-06] MEDS: metroNIDAZOLE 500 MG in APPROPRIATE DILUENT 1 EA IV ×3 (01:18→17:39)
[2018-05-06] MEDS: PANTOPRAZOLE 40MG INJ (PROTONIX) (C9113) IV ×2 (01:18→12:42)
[2018-05-06 06:17] LABS: HEMATOCRIT 29.7 % (42.0-52.0); HEMOGLOBIN 10.1 g/dl (13.5-17.5); MEAN CORPUSCULAR HEMOGLOBIN 31.9 pg (27.0-33.0); MEAN CORPUSCULAR VOLUME 93.7 fl (80.0-96.0); PLATELET COUNT, AUTOMATED 274 10^3/uL (150-450); RED BLOOD COUNT 3.17 10^6/uL (4.30-6.10); RED CELL DISTRIBUTION WIDTH 15.3 % (11.5-14.5); WHITE BLOOD COUNT 7.1 10^3/uL (4.0-10.0)
[2018-05-06 06:35] LABS: ANION GAP 8 MEQ/L (8-16); BLOOD UREA NITROGEN 11 MG/DL (7-18); CALCIUM LEVEL 7.9 MG/DL (8.8-10.2); CARBON DIOXIDE LEVEL 25 MEQ/L (21-32); CHLORIDE LEVEL 111 MEQ/L (98-107); CREATININE FOR GFR 0.86 MG/DL (0.70-1.30); GLOMERULAR FILTRATION RATE > 60.0 (>42); GLUCOSE, FASTING 101 MG/DL (70-100); MAGNESIUM LEVEL 1.2 MG/DL (1.8-2.4); SODIUM LEVEL 144 MEQ/L (136-145)
[2018-05-06] MEDS: CIPROFLOXACIN 200 MG in APPROPRIATE DILUENT 1 EA IV ×2 (07:48→20:12)
[2018-05-06] MEDS: MAGNESIUM OXIDE 400 MG TAB (MAG-OX) PO ×2 (07:52→20:12)
[2018-05-06] MEDS: LISINOPRIL 20 MG TAB PO (07:55)
[2018-05-06] MEDS: MAG SULF 1GM/100ML (MAG RUN) 1 GM in APPROPRIATE DILUENT 1 EA IV ×2 (09:10→10:33)
[2018-05-06 14:05] LABS: HEMATOCRIT 29.4 % (42.0-52.0); HEMOGLOBIN 10.1 g/dl (13.5-17.5)
[2018-05-06] MEDS: traZODone 50 MG TAB PO (20:12)
[2018-05-07] MEDS: metroNIDAZOLE 500 MG in APPROPRIATE DILUENT 1 EA IV ×2 (01:07→10:27)
[2018-05-07] MEDS: PANTOPRAZOLE 40MG INJ (PROTONIX) (C9113) IV ×2 (01:07→12:54)
[2018-05-07 06:43] LABS: HEMATOCRIT 29.6 % (42.0-52.0); HEMOGLOBIN 10.1 g/dl (13.5-17.5); MEAN CORPUSCULAR HEMOGLOBIN 31.8 pg (27.0-33.0); MEAN CORPUSCULAR HGB CONC 34.1 g/dl (32.0-36.5); MEAN CORPUSCULAR VOLUME 93.1 fl (80.0-96.0); PLATELET COUNT, AUTOMATED 295 10^3/uL (150-450); RED BLOOD COUNT 3.18 10^6/uL (4.30-6.10); RED CELL DISTRIBUTION WIDTH 15.2 % (11.5-14.5); WHITE BLOOD COUNT 6.5 10^3/uL (4.0-10.0)
[2018-05-07 07:04] LABS: ANION GAP 8 MEQ/L (8-16); BLOOD UREA NITROGEN 13 MG/DL (7-18); CALCIUM LEVEL 8.1 MG/DL (8.8-10.2); CARBON DIOXIDE LEVEL 26 MEQ/L (21-32); CHLORIDE LEVEL 109 MEQ/L (98-107); CREATININE FOR GFR 0.79 MG/DL (0.70-1.30); GLOMERULAR FILTRATION RATE > 60.0 (>42); GLUCOSE, FASTING 109 MG/DL (70-100); MAGNESIUM LEVEL 1.6 MG/DL (1.8-2.4); SODIUM LEVEL 143 MEQ/L (136-145)
[2018-05-07] MEDS: MAGNESIUM OXIDE 400 MG TAB (MAG-OX) PO (09:06)
[2018-05-07] MEDS: LISINOPRIL 20 MG TAB PO (09:09)
[2018-05-07] MEDS: CIPROFLOXACIN 200 MG in APPROPRIATE DILUENT 1 EA IV (09:10)
[2018-05-07] MEDS: MAG SULF 1GM/100ML (MAG RUN) 1 GM in APPROPRIATE DILUENT 1 EA IV ×2 (11:53→12:54)
[2018-05-07 14:14] LABS: HEMATOCRIT 29.7 % (42.0-52.0); HEMOGLOBIN 9.8 g/dl (13.5-17.5)
== END 2018-05-07 14:46 | disposition home or self-care (01) | DRG 394 ==
LOC: M ED INP 05-03 00:15 → M ED 19:23 → M MSPAV 05-03 15:10
PROC: 0DBN8ZX Excision of Sigmoid Colon, Via Natural or Artificial Opening Endoscopic, Diagnostic (ICD-10-PCS; principal; 2018-05-04 13:34)
PROC: 30233N1 Transfusion of Nonautologous Red Blood Cells into Peripheral Vein, Percutaneous Approach (ICD-10-PCS; 2018-05-04 14:15)
DX: K55.9 Vascular disorder of intestine, unspecified (principal); D62 Acute posthemorrhagic anemia; N17.9 Acute kidney failure, unspecified; K92.2 Gastrointestinal hemorrhage, unspecified; E87.5 Hyperkalemia; R91.8 Other nonspecific abnormal finding of lung field; Z79.899 Other long term (current) drug therapy; Z88.0 Allergy status to penicillin; Z88.5 Allergy status to narcotic agent; Z88.2 Allergy status to sulfonamides; K44.9 Diaphragmatic hernia without obstruction or gangrene; K21.9 Gastro-esophageal reflux disease without esophagitis; Z96.652 Presence of left artificial knee joint; I10 Essential (primary) hypertension; E86.0 Dehydration; K57.30 Diverticulosis of large intestine without perforation or abscess without bleeding

== ENCOUNTER 2018-06-10 07:05 | Day surgery (SDC) | payer MEDICARE ==
[2018-06-10] MEDS ORDERED: PROPOFOL 200 MG/20 ML VIAL As Ordered ×2 (07:18)
[2018-06-10] MEDS ORDERED: LIDOCAINE 2% INJ 100 MG/5 ML SDV (FOR ANES.) As Ordered (07:20)
[2018-06-10] MEDS ORDERED: NS 1,000 ML IV (07:30)
[2018-06-10] MEDS ORDERED: ePHEDrine SULFATE 25 MG/5 ML(5MG/ML) SYRINGE As Ordered (08:04)
== END 2018-06-10 09:11 | disposition home or self-care (01) ==
LOC: M OPP 09:11
DX: K55.039 Acute (reversible) ischemia of large intestine, extent unspecified (principal); K52.9 Noninfective gastroenteritis and colitis, unspecified; K64.8 Other hemorrhoids; K57.30 Diverticulosis of large intestine without perforation or abscess without bleeding; R93.3 Abnormal findings on diagnostic imaging of other parts of digestive tract; K21.0 Gastro-esophageal reflux disease with esophagitis; K22.8 Other specified diseases of esophagus; K29.70 Gastritis, unspecified, without bleeding; K44.9 Diaphragmatic hernia without obstruction or gangrene; R00.8 Other abnormalities of heart beat; I25.119 Atherosclerotic heart disease of native coronary artery with unspecified angina pectoris; I10 Essential (primary) hypertension; I25.2 Old myocardial infarction; M19.90 Unspecified osteoarthritis, unspecified site; R06.83 Snoring; Z88.5 Allergy status to narcotic agent; Z88.2 Allergy status to sulfonamides; Z88.0 Allergy status to penicillin; Z79.899 Other long term (current) drug therapy
CPT/HCPCS: 45380

== ENCOUNTER → 2019-03-05 | Outpatient (CLI) | payer MEDICARE ==
[~2019-03-05] MED LIST changes: +/FEXO18TA OR; +/FEXO18TA PO; +ALBU17IN2 IN; +AMLO10TA OR; +AMLO10TA5 PO; +ASPI1TAB15 PO; +ASPI81TA83 PO; +ASPI81TA85 PO; +ATROVENT0.02% INH; +BUSP10TA PO; +BUSP10TA2 PO; +BUSP15TA47 PO; +CIPR-249 PO; +COLA100C2 OR; +Cardizem CD PO; +FIBER LAXATIVE PO; +FLAG500T PO; +FLUD0.1T PO; +HYDR25TA6 PO; +IBUP1TAB6 PO; -ISOVUE-370 76% 100ML VIAL (Q9967) As Ordered; +LEVA750T OR; +LISI-538 PO; +MECL-68 PO; +MECL-86 PO; +METOPROLOL TARTRATE PO; +MIRALEX PO; +MUCINEX PO; +OMEP20TA7 PO; +OMEP40CA2 PO; +OXYB5TAB10 PO; +PANT20TA2 PO; +PANT40TA3 PO; +PRED10TA2 PO; +SLOWTAB PO; +SUCR1SS PO; +TERA10CA3 PO; +TRAM50TA2 OR; +TRAM50TA2 PO; +TRAZ-163 PO; +TRAZ100T PO; +TRAZ1TAB10 PO; +TRICOR PO; +ZITHTAB PO; +[UNRECOGNIZED DRUG - OTHER] PO
--- NOTE | 2019-03-05 13:42 | REP ---
Left hand series: Four views. History: Cellulitis. Cat bite injury. Findings: Four views of the left hand demonstrate diffuse moderate soft tissue swelling about the proximal and middle phalanges of the index finger. There is no soft tissue gas or opaque foreign body. No fracture is seen. Overall mineralization pattern is normal. 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 Impression: Diffuse soft tissue swelling moderate in degree involving the index finger. No acute bony abnormality. Electronically Signed by Haris Webb MD 03/05/2019 01:34 P
[2019-03-05 16:53] LABS: BASO % 0.6 % (0.0-1.0); EOS # 0.1 10^3/uL (0.0-0.50); EOS % 2.1 % (0.0-3.0); LYMPH # 1.9 10^3/uL (1.5-4.5); LYMPH % 37.3 % (24.0-44.0); MEAN CORPUSCULAR HEMOGLOBIN 31.6 pg (27.0-33.0); MEAN CORPUSCULAR HGB CONC 32.3 g/dl (32.0-36.5); MEAN CORPUSCULAR VOLUME 98.1 fl (80.0-96.0); MONO # 0.6 10^3/uL (0.0-0.8); MONO % 10.6 % (0.0-5.0); NEUTROPHILS # 2.5 10^3/uL (1.8-7.7); PLATELET COUNT, AUTOMATED 343 10^3/uL (150-450); RED BLOOD COUNT 3.16 10^6/uL (4.30-6.10); WHITE BLOOD COUNT 5.2 10^3/uL (4.0-10.0)
[2019-03-05 16:58] LABS: ALBUMIN 3.1 GM/DL (3.2-5.2); ALT/SGPT 14 U/L (12-78); BILIRUBIN,TOTAL 0.7 MG/DL (0.2-1.0); BLOOD UREA NITROGEN 17 MG/DL (7-18); CALCIUM LEVEL 8.9 MG/DL (8.8-10.2); CARBON DIOXIDE LEVEL 27 MEQ/L (21-32); CHLORIDE LEVEL 107 MEQ/L (98-107); CREATININE FOR GFR 0.76 MG/DL (0.70-1.30); GLOMERULAR FILTRATION RATE > 60.0 (>42); GLUCOSE, FASTING 86 MG/DL (70-100); POTASSIUM SERUM 4.6 MEQ/L (3.5-5.1); SODIUM LEVEL 140 MEQ/L (136-145); TOTAL PROTEIN 6.4 GM/DL (6.4-8.2)
== END ==
LOC: M WUC 12:08
PROVIDERS: ATTEND Nurse Practitioner Family
DX: L03.012 Cellulitis of left finger (principal)

== ENCOUNTER → 2019-07-24 | Outpatient (CLI) | payer MEDICARE ==
[~2019-07-24] MED LIST changes: -OMEP40CA2 PO; +OMEP40CA97 PO
[2019-07-24 14:07] LABS: BASO % 0.6 % (0.0-1.0); EOS # 0.1 10^3/uL (0.0-0.5); EOS % 2.2 % (0.0-3.0); HEMATOCRIT 32.1 % (42.0-52.0); HEMOGLOBIN 10.5 g/dl (13.5-17.5); LYMPH % 39.5 % (24.0-44.0); MEAN CORPUSCULAR HEMOGLOBIN 33.5 pg (27.0-33.0); MEAN CORPUSCULAR HGB CONC 32.7 g/dl (32.0-36.5); MEAN CORPUSCULAR VOLUME 102.6 fl (80.0-96.0); MONO # 0.4 10^3/uL (0.0-0.8); MONO % 8.7 % (0.0-5.0); NEUTROPHILS # 2.4 10^3/uL (1.5-8.5); NEUTROPHILS % 48.8 % (36.0-66.0); PLATELET COUNT, AUTOMATED 361 10^3/uL (150-450); RED BLOOD COUNT 3.13 10^6/uL (4.30-6.10)
[2019-07-24 14:09] LABS: APPEARANCE, URINE CLEAR (CLEAR); BACTERIA, URINE AUTO 1+ (NEGATIVE); BILIRUBIN, URINE AUTO NEGATIVE (NEGATIVE); BLOOD, URINE BLOOD NEGATIVE (NEGATIVE); COLOR, URINE YELLOW (YELLOW); GLUCOSE, URINE (UA) AUTO NEGATIVE (NEGATIVE); KETONE, URINE AUTO NEGATIVE (NEGATIVE); LEUKOCYTE ESTERASE, URINE AUTO TRACE (NEGATIVE); MUCUS, URINE SMALL (NEGATIVE); NITRITE, URINE AUTO NEGATIVE (NEGATIVE); PROTEIN, URINE AUTO NEGATIVE (NEGATIVE); RBC, URINE AUTO 1 /HPF (0-3); SPECIFIC GRAVITY URINE AUTO 1.012 (1.002-1.035); SQUAMOUS EPITHELIAL CELL UR AU 0 /HPF (0-6); UROBILINOGEN, URINE AUTO 0.2 mg/dL (0.0-2.0); WBC, URINE AUTO 0 /HPF (0-3)
[2019-07-24 14:26] LABS: HEMOGLOBIN A1c 5.6 %
[2019-07-24 14:52] LABS: ALBUMIN 3.7 GM/DL (3.2-5.2); ALT/SGPT 16 U/L (12-78); BILIRUBIN,TOTAL 0.7 MG/DL (0.2-1.0); BLOOD UREA NITROGEN 22 MG/DL (7-18); CARBON DIOXIDE LEVEL 29 MEQ/L (21-32); CHLORIDE LEVEL 106 MEQ/L (98-107); CHOLESTEROL LEVEL 160 MG/DL (<200); CHOLESTEROL RISK RATIO 1.839 (<5); CREATININE FOR GFR 0.82 MG/DL (0.70-1.30); FREE T4 0.92 NG/DL (0.76-1.46); GLOMERULAR FILTRATION RATE > 60.0 (>42); GLUCOSE, FASTING 78 MG/DL (70-100); HDL CHOLESTEROL 87 MG/DL (>40); LDL CHOLESTEROL 55 MG/DL (<100); NON-HDL-C 73 MG/DL; POTASSIUM SERUM 4.7 MEQ/L (3.5-5.1); SODIUM LEVEL 139 MEQ/L (136-145); TOTAL 25(OH) VITAMIN D 22.4 NG/ML (30.0-100.0); TOTAL PROTEIN 6.8 GM/DL (6.4-8.2); TRIGLYCERIDES LEVEL 89 MG/DL (<150)
[2019-07-26 00:06] LABS: Lyme Disease IgG/IgM Antibodie <0.91 ISR (0.00-0.90); Lyme Disease IgM Ab Quantitati <0.80 index (0.00-0.79)
== END ==
LOC: M LAB 12:25
PROVIDERS: ATTEND Family Medicine
DX: Z12.5 Encounter for screening for malignant neoplasm of prostate (principal); R00.2 Palpitations; M25.50 Pain in unspecified joint; R53.83 Other fatigue; Z13.228 Encounter for screening for other metabolic disorders
CPT/HCPCS: 36415; 80053; 80061; 81001; 82306; 83036; 84439; 84443; 85025; 86617; G0103

== ENCOUNTER → 2019-10-28 | Outpatient (REF) | payer MEDICARE ==
[~2019-10-28] MED LIST changes: -MECL-68 PO; +MECL1TAB31 PO; -TRAZ-163 PO; +TRAZ-257 PO
[2019-10-28 18:23] LABS: BASO % 0.9 % (0.0-1.0); EOS # 0.1 10^3/uL (0.0-0.5); EOS % 1.3 % (0.0-3.0); HEMATOCRIT 31.2 % (42.0-52.0); HEMOGLOBIN 10.2 g/dl (13.5-17.5); LYMPH # 1.5 10^3/uL (1.5-5.0); LYMPH % 32.5 % (24.0-44.0); MEAN CORPUSCULAR HGB CONC 32.7 g/dl (32.0-36.5); MONO # 0.5 10^3/uL (0.0-0.8); MONO % 9.8 % (0.0-5.0); NEUTROPHILS # 2.6 10^3/uL (1.5-8.5); NEUTROPHILS % 55.3 % (36.0-66.0); PLATELET COUNT, AUTOMATED 345 10^3/uL (150-450); WHITE BLOOD COUNT 4.6 10^3/uL (4.0-10.0)
[2019-10-28 18:41] LABS: HEMOGLOBIN A1c 5.5 %
[2019-10-28 18:56] LABS: ALBUMIN 3.7 GM/DL (3.2-5.2); ALT/SGPT 15 U/L (12-78); BILIRUBIN,TOTAL 1.1 MG/DL (0.2-1.0); BLOOD UREA NITROGEN 29 MG/DL (7-18); CALCIUM LEVEL 8.6 MG/DL (8.8-10.2); CARBON DIOXIDE LEVEL 28 MEQ/L (21-32); CHLORIDE LEVEL 108 MEQ/L (98-107); CHOLESTEROL LEVEL 163 MG/DL (<200); CHOLESTEROL RISK RATIO 1.831 (<5); CREATININE FOR GFR 0.86 MG/DL (0.70-1.30); FREE T4 1.01 NG/DL (0.76-1.46); GLOMERULAR FILTRATION RATE > 60.0 (>42); GLUCOSE, FASTING 96 MG/DL (70-100); HDL CHOLESTEROL 89 MG/DL (>40); LDL CHOLESTEROL 63 MG/DL (<100); NON-HDL-C 74 MG/DL; POTASSIUM SERUM 4.6 MEQ/L (3.5-5.1); PROSTATIC SPECIFIC AG MONITOR < 0.01 NG/ML (< 4.00); SODIUM LEVEL 141 MEQ/L (136-145); THYROID STIMULATING HORMONE 0.958 uIU/ML (0.358-3.740); TOTAL PROTEIN 6.6 GM/DL (6.4-8.2); TRIGLYCERIDES LEVEL 53 MG/DL (<150)
[2019-10-28 18:57] LABS: TOTAL 25(OH) VITAMIN D 25.5 NG/ML (30.0-100.0)
[2019-10-31 00:07] LABS: Lyme Disease IgG/IgM Antibodie <0.91 ISR (0.00-0.90); Lyme Disease IgM Ab Quantitati <0.80 index (0.00-0.79)
== END ==
LOC: M LAB REF 17:17
PROVIDERS: ATTEND Family Medicine
DX: R00.2 Palpitations (principal); M25.50 Pain in unspecified joint; M53.83 Other specified dorsopathies, cervicothoracic region; Z13.228 Encounter for screening for other metabolic disorders; Z86.79 Personal history of other diseases of the circulatory system; Z79.899 Other long term (current) drug therapy; N40.0 Benign prostatic hyperplasia without lower urinary tract symptoms

== ENCOUNTER → 2020-02-03 | Outpatient (REF) | payer MEDICARE ==
[2020-02-03 14:06] LABS: BASO % 0.8 % (0.0-1.0); EOS # 0.2 10^3/uL (0.0-0.5); EOS % 3.2 % (0.0-3.0); HEMATOCRIT 30.2 % (42.0-52.0); HEMOGLOBIN 9.8 g/dl (13.5-17.5); LYMPH # 1.2 10^3/uL (1.5-5.0); LYMPH % 24.2 % (24.0-44.0); MEAN CORPUSCULAR HEMOGLOBIN 33.1 pg (27.0-33.0); MEAN CORPUSCULAR HGB CONC 32.5 g/dl (32.0-36.5); MONO # 0.5 10^3/uL (0.0-0.8); MONO % 9.7 % (0.0-5.0); NEUTROPHILS # 2.9 10^3/uL (1.5-8.5); NEUTROPHILS % 61.9 % (36.0-66.0); PLATELET COUNT, AUTOMATED 467 10^3/uL (150-450); RED BLOOD COUNT 2.96 10^6/uL (4.30-6.10); WHITE BLOOD COUNT 4.8 10^3/uL (4.0-10.0)
[2020-02-03 14:17] LABS: ALBUMIN 3.4 GM/DL (3.2-5.2); ALT/SGPT 13 U/L (12-78); BLOOD UREA NITROGEN 22 MG/DL (7-18); CALCIUM LEVEL 8.9 MG/DL (8.8-10.2); CARBON DIOXIDE LEVEL 28 MEQ/L (21-32); CHLORIDE LEVEL 106 MEQ/L (98-107); CHOLESTEROL LEVEL 162 MG/DL (<200); CHOLESTEROL RISK RATIO 2.025 (<5); CREATININE FOR GFR 0.86 MG/DL (0.70-1.30); FREE T4 1.01 NG/DL (0.76-1.46); GLOMERULAR FILTRATION RATE > 60.0 (>42); GLUCOSE, FASTING 97 MG/DL (70-100); HDL CHOLESTEROL 80 MG/DL (>40); LDL CHOLESTEROL 69 MG/DL (<100); NON-HDL-C 82 MG/DL; POTASSIUM SERUM 4.4 MEQ/L (3.5-5.1); SODIUM LEVEL 139 MEQ/L (136-145); TOTAL PROTEIN 6.7 GM/DL (6.4-8.2); TRIGLYCERIDES LEVEL 65 MG/DL (<150)
[2020-02-03 14:40] LABS: HEMOGLOBIN A1c 5.7 %
[2020-02-03 14:54] LABS: TOTAL 25(OH) VITAMIN D 20.4 NG/ML (30.0-100.0)
== END ==
LOC: M LAB REF 13:17
PROVIDERS: ATTEND Nurse Practitioner Family
DX: N32.81 Overactive bladder (principal); D64.9 Anemia, unspecified; R00.2 Palpitations; M25.50 Pain in unspecified joint; Z13.9 Encounter for screening, unspecified; E78.00 Pure hypercholesterolemia, unspecified

== ENCOUNTER → 2020-06-02 | Outpatient (REF) | payer MEDICARE ==
[~2020-06-02] MED LIST changes: -AMLO10TA5 PO; +AMLO1TAB25 PO; +ASPI-546 PO; -ASPI1TAB15 PO; -ASPI81TA85 PO; +ASPI81TA86 PO; -PANT20TA2 PO; +PANT20TA6 PO; +PANT40TA29 PO; -PANT40TA3 PO
[2020-06-02 18:38] LABS: BASO % 0.8 % (0.0-1.0); EOS # 0.1 10^3/uL (0.0-0.5); EOS % 1.5 % (0.0-3.0); HEMATOCRIT 27.6 % (42.0-52.0); HEMOGLOBIN 9.1 g/dl (13.5-17.5); LYMPH # 1.3 10^3/uL (1.5-5.0); LYMPH % 32.7 % (24.0-44.0); MONO # 0.4 10^3/uL (0.0-0.8); MONO % 9.5 % (0.0-5.0); NEUTROPHILS # 2.2 10^3/uL (1.5-8.5); NEUTROPHILS % 55.2 % (36.0-66.0); PLATELET COUNT, AUTOMATED 300 10^3/uL (150-450); RED BLOOD COUNT 2.68 10^6/uL (4.30-6.10); WHITE BLOOD COUNT 3.9 10^3/uL (4.0-10.0)
[2020-06-02 18:47] LABS: ALBUMIN 3.6 GM/DL (3.2-5.2); ALT/SGPT 14 U/L (12-78); BILIRUBIN,TOTAL 0.9 MG/DL (0.2-1.0); BLOOD UREA NITROGEN 20 MG/DL (7-18); CALCIUM LEVEL 8.8 MG/DL (8.8-10.2); CARBON DIOXIDE LEVEL 26 MEQ/L (21-32); CHLORIDE LEVEL 109 MEQ/L (98-107); CHOLESTEROL LEVEL 144 MG/DL (<200); CHOLESTEROL RISK RATIO 1.674 (<5); CREATININE FOR GFR 0.75 MG/DL (0.70-1.30); FERRITIN 210 NG/ML (26-388); GLOMERULAR FILTRATION RATE > 60.0 (>42); GLUCOSE, FASTING 97 MG/DL (70-100); HDL CHOLESTEROL 86 MG/DL (>40); IRON (FE) 157 UG/DL (65-175); LDL CHOLESTEROL 43 MG/DL (<100); NON-HDL-C 58 MG/DL; POTASSIUM SERUM 4.3 MEQ/L (3.5-5.1); SODIUM LEVEL 140 MEQ/L (136-145); TOTAL PROTEIN 6.4 GM/DL (6.4-8.2); TRIGLYCERIDES LEVEL 77 MG/DL (<150)
[2020-06-02 18:49] LABS: FOLATE 16.1 NG/ML; VITAMIN B12 LEVEL 441 PG/ML
[2020-06-02 19:02] LABS: HEMOGLOBIN A1c 5.6 %
== END ==
LOC: M LAB REF 17:11
PROVIDERS: ATTEND Nurse Practitioner Family
DX: R73.03 Prediabetes (principal); E55.9 Vitamin D deficiency, unspecified; Z13.9 Encounter for screening, unspecified; N32.81 Overactive bladder; D64.9 Anemia, unspecified; R53.83 Other fatigue; Z79.899 Other long term (current) drug therapy

== ENCOUNTER → 2020-08-25 | Outpatient (REF) | payer MEDICARE ==
[2020-08-25 17:46] LABS: BASO % 0.4 % (0.0-1.0); EOS # 0.1 10^3/uL (0.0-0.5); EOS % 1.7 % (0.0-3.0); HEMATOCRIT 29.4 % (42.0-52.0); HEMOGLOBIN 9.2 g/dl (13.5-17.5); LYMPH # 1.7 10^3/uL (1.5-5.0); LYMPH % 36.3 % (24.0-44.0); MEAN CORPUSCULAR HEMOGLOBIN 33.1 pg (27.0-33.0); MEAN CORPUSCULAR HGB CONC 31.3 g/dl (32.0-36.5); MEAN CORPUSCULAR VOLUME 105.8 fl (80.0-96.0); MONO # 0.5 10^3/uL (0.0-0.8); MONO % 9.7 % (0.0-5.0); NEUTROPHILS # 2.4 10^3/uL (1.5-8.5); NEUTROPHILS % 51.7 % (36.0-66.0); PLATELET COUNT, AUTOMATED 381 10^3/uL (150-450); RED BLOOD COUNT 2.78 10^6/uL (4.30-6.10); WHITE BLOOD COUNT 4.7 10^3/uL (4.0-10.0)
[2020-08-25 18:06] LABS: ALBUMIN 3.6 GM/DL (3.2-5.2); ALT/SGPT 16 U/L (12-78); BILIRUBIN,TOTAL 0.8 MG/DL (0.2-1.0); BLOOD UREA NITROGEN 24 MG/DL (7-18); CALCIUM LEVEL 8.8 MG/DL (8.8-10.2); CARBON DIOXIDE LEVEL 28 MEQ/L (21-32); CHLORIDE LEVEL 104 MEQ/L (98-107); CREATININE FOR GFR 0.83 MG/DL (0.70-1.30); GLOMERULAR FILTRATION RATE > 60.0 (>42); GLUCOSE, FASTING 92 MG/DL (70-100); POTASSIUM SERUM 4.5 MEQ/L (3.5-5.1); PROSTATIC SPECIFIC AG MONITOR < 0.01 NG/ML (< 4.00); SODIUM LEVEL 137 MEQ/L (136-145); TOTAL PROTEIN 6.4 GM/DL (6.4-8.2)
== END ==
LOC: M LAB REF 16:25
PROVIDERS: ATTEND Nurse Practitioner Family
DX: N32.81 Overactive bladder (principal); R97.20 Elevated prostate specific antigen [PSA]

== ENCOUNTER → 2020-10-14 | Outpatient (REF) | payer MEDICARE ==
[2020-10-14 13:50] LABS: APPEARANCE, URINE CLEAR (CLEAR); BACTERIA, URINE AUTO NEGATIVE (NEGATIVE); BILIRUBIN, URINE AUTO NEGATIVE (NEGATIVE); BLOOD, URINE BLOOD NEGATIVE (NEGATIVE); COLOR, URINE YELLOW (YELLOW); GLUCOSE, URINE (UA) AUTO NEGATIVE (NEGATIVE); KETONE, URINE AUTO NEGATIVE (NEGATIVE); LEUKOCYTE ESTERASE, URINE AUTO NEGATIVE (NEGATIVE); NITRITE, URINE AUTO NEGATIVE (NEGATIVE); PROTEIN, URINE AUTO NEGATIVE (NEGATIVE); RBC, URINE AUTO 0 /HPF (0-3); SPECIFIC GRAVITY URINE AUTO 1.005 (1.002-1.035); SQUAMOUS EPITHELIAL CELL UR AU 0 /HPF (0-6); WBC, URINE AUTO 0 /HPF (0-3)
[2020-10-14 13:56] LABS: BASO % 0.6 % (0.0-1.0); EOS # 0.2 10^3/uL (0.0-0.5); EOS % 4.3 % (0.0-3.0); HEMATOCRIT 30.6 % (42.0-52.0); LYMPH # 1.3 10^3/uL (1.5-5.0); MEAN CORPUSCULAR HEMOGLOBIN 33.8 pg (27.0-33.0); MEAN CORPUSCULAR HGB CONC 32.7 g/dl (32.0-36.5); MEAN CORPUSCULAR VOLUME 103.4 fl (80.0-96.0); MONO # 0.5 10^3/uL (0.0-0.8); MONO % 11.3 % (0.0-5.0); NEUTROPHILS # 2.6 10^3/uL (1.5-8.5); NEUTROPHILS % 55.6 % (36.0-66.0); PLATELET COUNT, AUTOMATED 306 10^3/uL (150-450); RED BLOOD COUNT 2.96 10^6/uL (4.30-6.10); WHITE BLOOD COUNT 4.7 10^3/uL (4.0-10.0)
[2020-10-14 14:36] LABS: ALBUMIN 3.9 GM/DL (3.2-5.2); ALT/SGPT 16 U/L (12-78); BILIRUBIN,TOTAL 1.5 MG/DL (0.2-1.0); BLOOD UREA NITROGEN 24 MG/DL (7-18); CALCIUM LEVEL 9.3 MG/DL (8.8-10.2); CARBON DIOXIDE LEVEL 28 MEQ/L (21-32); CHLORIDE LEVEL 100 MEQ/L (98-107); CHOLESTEROL LEVEL 170 MG/DL (<200); CHOLESTEROL RISK RATIO 1.888 (<5); CREATININE FOR GFR 0.83 MG/DL (0.70-1.30); GLOMERULAR FILTRATION RATE > 60.0 (>42); GLUCOSE, FASTING 92 MG/DL (70-100); HDL CHOLESTEROL 90 MG/DL (>40); LDL CHOLESTEROL 66 MG/DL (<100); MAGNESIUM LEVEL 1.5 MG/DL (1.8-2.4); NON-HDL-C 80 MG/DL; POTASSIUM SERUM 4.5 MEQ/L (3.5-5.1); SODIUM LEVEL 135 MEQ/L (136-145); TOTAL PROTEIN 6.5 GM/DL (6.4-8.2); TRIGLYCERIDES LEVEL 69 MG/DL (<150)
== END ==
LOC: M LAB REF 12:38
PROVIDERS: ATTEND Nurse Practitioner Family
DX: N32.81 Overactive bladder (principal); R03.0 Elevated blood-pressure reading, without diagnosis of hypertension

== ENCOUNTER → 2020-10-24 | Outpatient (REF) | payer MEDICARE ==
[~2020-10-24] MED LIST changes: -LISI-538 PO; +LISI20TA33 PO
[2020-10-24 18:39] LABS: BASO % 0.4 % (0.0-1.0); EOS # 0.1 10^3/uL (0.0-0.5); EOS % 2.1 % (0.0-3.0); HEMATOCRIT 29.4 % (42.0-52.0); HEMOGLOBIN 9.5 g/dl (13.5-17.5); LYMPH # 1.3 10^3/uL (1.5-5.0); LYMPH % 25.9 % (24.0-44.0); MEAN CORPUSCULAR HEMOGLOBIN 34.2 pg (27.0-33.0); MEAN CORPUSCULAR HGB CONC 32.3 g/dl (32.0-36.5); MEAN CORPUSCULAR VOLUME 105.8 fl (80.0-96.0); MONO # 0.6 10^3/uL (0.0-0.8); MONO % 10.8 % (0.0-5.0); NEUTROPHILS # 3.1 10^3/uL (1.5-8.5); NEUTROPHILS % 60.4 % (36.0-66.0); PLATELET COUNT, AUTOMATED 313 10^3/uL (150-450); RED BLOOD COUNT 2.78 10^6/uL (4.30-6.10); WHITE BLOOD COUNT 5.2 10^3/uL (4.0-10.0)
[2020-10-24 19:10] LABS: BLOOD UREA NITROGEN 27 MG/DL (7-18); CALCIUM LEVEL 9.2 MG/DL (8.8-10.2); CARBON DIOXIDE LEVEL 27 MEQ/L (21-32); CHLORIDE LEVEL 103 MEQ/L (98-107); CREATININE FOR GFR 0.86 MG/DL (0.70-1.30); FERRITIN 98 NG/ML (26-388); GLOMERULAR FILTRATION RATE > 60.0 (>42); GLUCOSE, FASTING 73 MG/DL (70-100); IRON (FE) 90 UG/DL (65-175); MAGNESIUM LEVEL 1.7 MG/DL (1.8-2.4); PERCENT SATURATION 29.6 % (19.7-50.0); POTASSIUM SERUM 5.1 MEQ/L (3.5-5.1); SODIUM LEVEL 137 MEQ/L (136-145); TOTAL IRON BINDING CAPACITY 304 UG/DL (250-450)
[2020-10-24 19:13] LABS: FOLATE 11.4 NG/ML; VITAMIN B12 LEVEL 324 PG/ML
[2020-10-24 20:20] LABS: HEMOGLOBIN A1c 5.8 %
== END ==
LOC: M LAB REF 16:51
PROVIDERS: ATTEND Physician Assistant
DX: D64.9 Anemia, unspecified (principal); E87.1 Hypo-osmolality and hyponatremia

== ENCOUNTER → 2020-11-09 | Outpatient (REF) | payer MEDICARE ==
[2020-11-09 11:57] LABS: BASO % 0.5 % (0.0-1.0); EOS # 0.1 10^3/uL (0.0-0.5); EOS % 2.4 % (0.0-3.0); HEMATOCRIT 31.2 % (42.0-52.0); HEMOGLOBIN 9.9 g/dl (13.5-17.5); LYMPH # 1.3 10^3/uL (1.5-5.0); MEAN CORPUSCULAR HEMOGLOBIN 33.6 pg (27.0-33.0); MEAN CORPUSCULAR HGB CONC 31.7 g/dl (32.0-36.5); MEAN CORPUSCULAR VOLUME 105.8 fl (80.0-96.0); MONO # 0.6 10^3/uL (0.0-0.8); MONO % 10.6 % (2.0-8.0); NEUTROPHILS # 3.7 10^3/uL (1.5-8.5); NEUTROPHILS % 64.2 % (36.0-66.0); PLATELET COUNT, AUTOMATED 332 10^3/uL (150-450); RED BLOOD COUNT 2.95 10^6/uL (4.30-6.10); WHITE BLOOD COUNT 5.7 10^3/uL (4.0-10.0)
== END ==
LOC: M LAB REF 11:25
PROVIDERS: ATTEND Physician Assistant
DX: D64.9 Anemia, unspecified (principal); E83.42 Hypomagnesemia; D72.810 Lymphocytopenia

== ENCOUNTER → 2021-02-10 | Outpatient (REF) | payer MEDICARE ==
[2021-02-10 17:34] LABS: BASO % 0.8 % (0.0-1.0); EOS # 0.1 10^3/uL (0.0-0.5); EOS % 3.3 % (0.0-3.0); HEMATOCRIT 32.2 % (42.0-52.0); HEMOGLOBIN 10.4 g/dl (13.5-17.5); LYMPH # 1.4 10^3/uL (1.5-5.0); LYMPH % 34.6 % (24.0-44.0); MEAN CORPUSCULAR HEMOGLOBIN 33.8 pg (27.0-33.0); MEAN CORPUSCULAR HGB CONC 32.3 g/dl (32.0-36.5); MEAN CORPUSCULAR VOLUME 104.5 fl (80.0-96.0); MONO # 0.4 10^3/uL (0.0-0.8); MONO % 9.2 % (2.0-8.0); NEUTROPHILS % 51.8 % (36.0-66.0); PLATELET COUNT, AUTOMATED 348 10^3/uL (150-450); RED BLOOD COUNT 3.08 10^6/uL (4.30-6.10); WHITE BLOOD COUNT 3.9 10^3/uL (4.0-10.0)
[2021-02-10 18:12] LABS: ALT/SGPT 17 U/L (12-78); BLOOD UREA NITROGEN 21 MG/DL (7-18); CALCIUM LEVEL 9.2 MG/DL (8.8-10.2); CARBON DIOXIDE LEVEL 27 MEQ/L (21-32); CHLORIDE LEVEL 108 MEQ/L (98-107); CREATININE FOR GFR 0.81 MG/DL (0.70-1.30); GLOMERULAR FILTRATION RATE > 60.0 (>42); GLUCOSE, FASTING 94 MG/DL (70-100); POTASSIUM SERUM 4.9 MEQ/L (3.5-5.1); SODIUM LEVEL 140 MEQ/L (136-145); TRIGLYCERIDES LEVEL 68 MG/DL (<150)
[2021-02-10 18:13] LABS: ALBUMIN 3.6 GM/DL (3.2-5.2); CHOLESTEROL LEVEL 148 MG/DL (<200); CHOLESTEROL RISK RATIO 1.783 (<5); FERRITIN 80 NG/ML (26-388); HDL CHOLESTEROL 83 MG/DL (>40); IRON (FE) 124 UG/DL (65-175); LDL CHOLESTEROL 51 MG/DL (<100); NON-HDL-C 65 MG/DL; PERCENT SATURATION 41.1 % (19.7-50.0); TOTAL IRON BINDING CAPACITY 302 UG/DL (250-450); TOTAL PROTEIN 6.4 GM/DL (6.4-8.2)
[2021-02-10 18:38] LABS: HEMOGLOBIN A1c 5.4 %
== END ==
LOC: M LAB REF 16:32
PROVIDERS: ATTEND Nurse Practitioner Family
DX: D64.9 Anemia, unspecified (principal); R73.03 Prediabetes; E55.9 Vitamin D deficiency, unspecified

== ENCOUNTER 2021-12-04 11:15 | Inpatient (IN) | payer MEDICARE ==
[~2021-12-04] VITALS: Ht 172.7 cm; Wt 61.8 kg
[~2021-12-04 11:15] MED LIST changes: +OMEP40CA4 PO; -OMEP40CA97 PO
[2021-12-04] MEDS ORDERED: NS 1,000 ML IV SCH (12:20)
[2021-12-04 12:39] LABS: BASO % 0.2 % (0.0-1.0); EOS # 0.1 10^3/uL (0.0-0.5); EOS % 1.1 % (0.0-3.0); HEMOGLOBIN 9.4 g/dl (13.5-17.5); LYMPH # 1.3 10^3/uL (1.5-5.0); LYMPH % 28.6 % (24.0-44.0); MEAN CORPUSCULAR HEMOGLOBIN 32.5 pg (27.0-33.0); MEAN CORPUSCULAR HGB CONC 32.4 g/dl (32.0-36.5); MEAN CORPUSCULAR VOLUME 100.3 fl (80.0-96.0); MONO # 0.5 10^3/uL (0.0-0.8); MONO % 10.5 % (2.0-8.0); NEUTROPHILS # 2.8 10^3/uL (1.5-8.5); NEUTROPHILS % 59.4 % (36.0-66.0); PLATELET COUNT, AUTOMATED 273 10^3/uL (150-450); RED BLOOD COUNT 2.89 10^6/uL (4.30-6.10); WHITE BLOOD COUNT 4.7 10^3/uL (4.0-10.0)
[2021-12-04 13:11] LABS: ALBUMIN 3.2 GM/DL (3.2-5.2); ALT/SGPT 12 U/L (12-78); BILIRUBIN,DIRECT 0.2 MG/DL (0.0-0.2); BILIRUBIN,TOTAL 0.6 MG/DL (0.2-1.0); BLOOD UREA NITROGEN 28 MG/DL (7-18); CALCIUM LEVEL 8.4 MG/DL (8.8-10.2); CARBON DIOXIDE LEVEL 26 MEQ/L (21-32); CHLORIDE LEVEL 111 MEQ/L (98-107); CREATININE FOR GFR 0.82 MG/DL (0.70-1.30); GLOMERULAR FILTRATION RATE > 60.0 (>42); GLUCOSE, FASTING 68 MG/DL (70-100); POTASSIUM SERUM 4.1 MEQ/L (3.5-5.1); SODIUM LEVEL 141 MEQ/L (136-145); TOTAL PROTEIN 5.9 GM/DL (6.4-8.2)
[2021-12-04] MEDS ORDERED: ISOVUE-370 76% 100ML VIAL As Ordered ONE (13:53)
[2021-12-04] MEDS ORDERED: LABETALOL 100MG/20ML VIAL IV STA ×2 (16:04→19:48)
[2021-12-04] MEDS ORDERED: hydrALAZINE 20MG/ML 1ML VIAL (J0360 PER 20MG) IV ONE (16:05)
[2021-12-04] MEDS ORDERED: ACETAMINOPHEN TAB 650MG DOSE (2X325MG) PO PRN (16:35)
[2021-12-04] MEDS ORDERED: D5W/0.9% SODIUM CHLORIDE 1,000 ML IV SCH (16:40)
[2021-12-04 17:02] LABS: LDH LACTATE DEHYDROGENASE 175 U/L (87-241)
[2021-12-04] MEDS ORDERED: TAMS1CAP17 PO (17:04)
[2021-12-04] MEDS: cefTRIAXone SOD 1 GM in D5W MINI-BAG PLUS 50 ML IV SCH (18:00)
[2021-12-04] MEDS ORDERED: HOME MED LIST COMPLETE! XX SCH (18:20)
[2021-12-04] MEDS: AZITHROMYCIN INJ 500 MG, VIAL MATE ADAPTER 1 EACH in NS 250 ML IV SCH (20:48)
[2021-12-04 22:43] VITALS: BP 147/66
[2021-12-04] MEDS: traZODone 25MG PER 1/2 TABLET PO SCH (23:33)
[2021-12-04] MEDS: oxyBUTYnin 5 MG TAB PO SCH (23:34)
[2021-12-05] VITALS (18 sets, daily range): BP systolic 67–180; BP diastolic 46–112
[2021-12-05] MEDS ORDERED: **hydrALAZINE** 50 MG TAB PO ONE (05:15)
[2021-12-05 05:47] LABS: HEMATOCRIT 27.5 % (42.0-52.0); HEMOGLOBIN 9.2 g/dl (13.5-17.5); MEAN CORPUSCULAR HEMOGLOBIN 32.5 pg (27.0-33.0); MEAN CORPUSCULAR HGB CONC 33.5 g/dl (32.0-36.5); MEAN CORPUSCULAR VOLUME 97.2 fl (80.0-96.0); PLATELET COUNT, AUTOMATED 268 10^3/uL (150-450); RED BLOOD COUNT 2.83 10^6/uL (4.30-6.10)
[2021-12-05 06:08] LABS: BLOOD UREA NITROGEN 18 MG/DL (7-18); CARBON DIOXIDE LEVEL 25 MEQ/L (21-32); CHLORIDE LEVEL 112 MEQ/L (98-107); CREATININE FOR GFR 0.72 MG/DL (0.70-1.30); GLOMERULAR FILTRATION RATE > 60.0 (>42); GLUCOSE, FASTING 93 MG/DL (70-100); POTASSIUM SERUM 3.7 MEQ/L (3.5-5.1); SODIUM LEVEL 140 MEQ/L (136-145)
[2021-12-05 06:09] LABS: CALCIUM LEVEL 8.3 MG/DL (8.8-10.2); MAGNESIUM LEVEL 1.6 MG/DL (1.8-2.4)
[2021-12-05] MEDS: MAG SULF 1GM/100ML (MAG RUN) 1 GM in IV 1 EA IV SCH ×2 (07:59→09:18)
[2021-12-05] MEDS: oxyBUTYnin 5 MG TAB PO SCH ×2 (08:00→20:26)
[2021-12-05] MEDS ORDERED: FLUBLOK(EGG FREE)(QUAD)INFLUENZA VACC 0.5ML SYRINGE 18YRS & OLDER IM ONE (09:00)
[2021-12-05] MEDS ORDERED: TAMSULOSIN 0.4 MG CAP PO SCH (09:00)
[2021-12-05] MEDS ORDERED: lisinopriL 40MG TAB PO SCH (09:00)
[2021-12-05] MEDS ORDERED: ENOXAPARIN 40MG/0.4ML SYRINGE (J1650 PER 10MG) SC SCH (09:00)
[2021-12-05] MEDS ORDERED: AZIT-12 PO (10:44)
[2021-12-05] MEDS ORDERED: CEFD300C41 PO (10:44)
[2021-12-05] MEDS ORDERED: LISI40TA4 PO (10:45)
[2021-12-05 15:32] LABS: SOURCE, BODY FLUID pH PLEURAL
[2021-12-05 15:40] LABS: APPEARANCE, BODY FLUID CLOUDY (CLEAR); PLEURAL FL COLOR RED (COLORLESS); SOURCE, BODY FLUID PLEURAL
[2021-12-05 16:14] LABS: AMYLASE, BODY FLUID 42 U/L (NOT ESTABLISHED); CHOLESTEROL, BODY FLUID 67 MG/DL (NOT ESTABLISHED); LDH, BODY FLUID 166 U/L (NOT ESTABLISHED); SOURCE, BODY FLUID ALBUMIN PLEURAL; SOURCE, BODY FLUID AMYLASE PLEURAL; SOURCE, BODY FLUID CHOL PLEURAL; SOURCE, BODY FLUID GLUCOSE PLEURAL; SOURCE, BODY FLUID LDH PLEURAL; SOURCE, BODY FLUID TOT PROTEIN PLEURAL; SOURCE, BODY FLUID TRIG PLEURAL; TOTAL PROTEIN, BODY FLUID 4.1 G/DL (NOT ESTABLISHED); TRIGLYCERIDE, BODY FLUID 23 MG/DL (NOT ESTABLISHED)
[2021-12-05] MEDS: cefTRIAXone SOD 1 GM in D5W MINI-BAG PLUS 50 ML IV SCH (17:18)
[2021-12-05] MEDS: AZITHROMYCIN INJ 500 MG, VIAL MATE ADAPTER 1 EACH in NS 250 ML IV SCH (18:14)
[2021-12-05] MEDS: traZODone 25MG PER 1/2 TABLET PO SCH (20:25)
[2021-12-06] VITALS (11 sets, daily range): BP systolic 50–186; BP diastolic 30–88
[2021-12-06 06:17] LABS: BASO % 0.4 % (0.0-1.0); EOS # 0.1 10^3/uL (0.0-0.5); EOS % 2.4 % (0.0-3.0); HEMATOCRIT 29.3 % (42.0-52.0); HEMOGLOBIN 9.7 g/dl (13.5-17.5); LYMPH # 1.6 10^3/uL (1.5-5.0); LYMPH % 30.1 % (24.0-44.0); MEAN CORPUSCULAR HEMOGLOBIN 32.1 pg (27.0-33.0); MEAN CORPUSCULAR HGB CONC 33.1 g/dl (32.0-36.5); MONO # 0.6 10^3/uL (0.0-0.8); MONO % 10.8 % (2.0-8.0); NEUTROPHILS % 56.1 % (36.0-66.0); PLATELET COUNT, AUTOMATED 319 10^3/uL (150-450); RED BLOOD COUNT 3.02 10^6/uL (4.30-6.10); WHITE BLOOD COUNT 5.4 10^3/uL (4.0-10.0)
[2021-12-06 06:33] LABS: BLOOD UREA NITROGEN 20 MG/DL (7-18); CALCIUM LEVEL 8.4 MG/DL (8.8-10.2); CARBON DIOXIDE LEVEL 26 MEQ/L (21-32); CHLORIDE LEVEL 110 MEQ/L (98-107); CREATININE FOR GFR 0.76 MG/DL (0.70-1.30); GLOMERULAR FILTRATION RATE > 60.0 (>42); GLUCOSE, FASTING 95 MG/DL (70-100); MAGNESIUM LEVEL 1.8 MG/DL (1.8-2.4); POTASSIUM SERUM 4.5 MEQ/L (3.5-5.1); SODIUM LEVEL 141 MEQ/L (136-145)
[2021-12-06] MEDS: NS 1,000 ML IV SCH (10:29)
[2021-12-06] MEDS: oxyBUTYnin 5 MG TAB PO SCH ×2 (10:29→20:17)
[2021-12-06] MEDS: cefTRIAXone SOD 1 GM in D5W MINI-BAG PLUS 50 ML IV SCH (17:41)
[2021-12-06] MEDS: AZITHROMYCIN INJ 500 MG, VIAL MATE ADAPTER 1 EACH in NS 250 ML IV SCH (18:53)
[2021-12-06] MEDS: traZODone 25MG PER 1/2 TABLET PO SCH (20:17)
[2021-12-07] VITALS (10 sets, daily range): BP systolic 77–185; BP diastolic 44–86
[2021-12-07] MEDS: NS 1,000 ML IV SCH ×2 (00:40→14:01)
[2021-12-07 06:41] LABS: BASO % 0.4 % (0.0-1.0); EOS # 0.3 10^3/uL (0.0-0.5); EOS % 5.1 % (0.0-3.0); HEMATOCRIT 27.8 % (42.0-52.0); HEMOGLOBIN 9.2 g/dl (13.5-17.5); LYMPH # 1.9 10^3/uL (1.5-5.0); LYMPH % 36.6 % (24.0-44.0); MEAN CORPUSCULAR HEMOGLOBIN 32.4 pg (27.0-33.0); MEAN CORPUSCULAR HGB CONC 33.1 g/dl (32.0-36.5); MEAN CORPUSCULAR VOLUME 97.9 fl (80.0-96.0); MONO # 0.5 10^3/uL (0.0-0.8); MONO % 10.7 % (2.0-8.0); NEUTROPHILS # 2.4 10^3/uL (1.5-8.5); PLATELET COUNT, AUTOMATED 278 10^3/uL (150-450); RED BLOOD COUNT 2.84 10^6/uL (4.30-6.10); WHITE BLOOD COUNT 5.1 10^3/uL (4.0-10.0)
[2021-12-07 06:59] LABS: BLOOD UREA NITROGEN 19 MG/DL (7-18); CARBON DIOXIDE LEVEL 26 MEQ/L (21-32); CHLORIDE LEVEL 111 MEQ/L (98-107); CREATININE FOR GFR 0.71 MG/DL (0.70-1.30); GLOMERULAR FILTRATION RATE > 60.0 (>42); GLUCOSE, FASTING 91 MG/DL (70-100); MAGNESIUM LEVEL 1.7 MG/DL (1.8-2.4); POTASSIUM SERUM 4.2 MEQ/L (3.5-5.1); SODIUM LEVEL 139 MEQ/L (136-145)
[2021-12-07] MEDS: oxyBUTYnin 5 MG TAB PO SCH ×2 (07:48→21:16)
[2021-12-07] MEDS ORDERED: MAG SULF 1GM/100ML (MAG RUN) 1 GM in IV 1 EA IV ONE (08:00)
[2021-12-07] MEDS ORDERED: SODIUM CHLORIDE 0.9% 1000ML IV ONE (08:10)
[2021-12-07] MEDS ORDERED: NS 500 ML IV ONE (13:50)
[2021-12-07] MEDS: cefTRIAXone SOD 1 GM in D5W MINI-BAG PLUS 50 ML IV SCH (17:49)
[2021-12-07] MEDS: HEPARIN SOD (PORCINE) 5000UNITS/ML 1ML VIAL/SYRINGE SQ SCH ×2 (17:49→21:16)
[2021-12-07] MEDS: AZITHROMYCIN INJ 500 MG, VIAL MATE ADAPTER 1 EACH in NS 250 ML IV SCH (19:02)
[2021-12-08] VITALS (11 sets, daily range): BP systolic 91–193; BP diastolic 51–104
[2021-12-08 06:48] LABS: BASO % 0.4 % (0.0-1.0); EOS # 0.2 10^3/uL (0.0-0.5); EOS % 3.5 % (0.0-3.0); HEMATOCRIT 26.4 % (42.0-52.0); LYMPH # 1.7 10^3/uL (1.5-5.0); LYMPH % 35.3 % (24.0-44.0); MEAN CORPUSCULAR HEMOGLOBIN 32.8 pg (27.0-33.0); MEAN CORPUSCULAR HGB CONC 34.1 g/dl (32.0-36.5); MEAN CORPUSCULAR VOLUME 96.4 fl (80.0-96.0); MONO # 0.4 10^3/uL (0.0-0.8); MONO % 7.9 % (2.0-8.0); NEUTROPHILS # 2.5 10^3/uL (1.5-8.5); NEUTROPHILS % 52.5 % (36.0-66.0); PLATELET COUNT, AUTOMATED 286 10^3/uL (150-450); RED BLOOD COUNT 2.74 10^6/uL (4.30-6.10); WHITE BLOOD COUNT 4.8 10^3/uL (4.0-10.0)
[2021-12-08] MEDS: HEPARIN SOD (PORCINE) 5000UNITS/ML 1ML VIAL/SYRINGE SQ SCH ×3 (07:00→21:00)
[2021-12-08 07:09] LABS: BLOOD UREA NITROGEN 19 MG/DL (7-18); CALCIUM LEVEL 8.2 MG/DL (8.8-10.2); CARBON DIOXIDE LEVEL 25 MEQ/L (21-32); CHLORIDE LEVEL 115 MEQ/L (98-107); CREATININE FOR GFR 0.66 MG/DL (0.70-1.30); GLOMERULAR FILTRATION RATE > 60.0 (>42); GLUCOSE, FASTING 92 MG/DL (70-100); MAGNESIUM LEVEL 1.6 MG/DL (1.8-2.4); POTASSIUM SERUM 4.2 MEQ/L (3.5-5.1); SODIUM LEVEL 142 MEQ/L (136-145)
[2021-12-08] MEDS: NS 1,000 ML IV SCH ×2 (09:13→16:56)
[2021-12-08] MEDS: oxyBUTYnin 5 MG TAB PO SCH ×2 (09:13→20:08)
[2021-12-08] MEDS: MAG SULF 1GM/100ML (MAG RUN) 1 GM in IV 1 EA IV SCH ×2 (10:54→14:23)
[2021-12-08] MEDS ORDERED: MAGNESIUM SULFATE 1GM/100ML D5W BAG (10MG/ML) As Ordered ONE (14:07)
[2021-12-08] MEDS ORDERED: AZITHROMYCIN 250MG TABLET PO SCH (19:00)
[2021-12-08] MEDS: CEFDINIR 300 MG CAP (OMNICEF) PO SCH (20:08)
[2021-12-08] MEDS: DOXYCYCLINE HYCLATE 100MG TABLET PO SCH (20:08)
[2021-12-08] MEDS ORDERED: hydrALAZINE 20MG/ML 1ML VIAL (J0360 PER 20MG) IV ONE (20:15)
[2021-12-09] VITALS (13 sets, daily range): BP systolic 62–210; BP diastolic 32–100
[2021-12-09] MEDS: NS 1,000 ML IV SCH ×2 (01:05→15:15)
[2021-12-09] MEDS ORDERED: hydrALAZINE 20MG/ML 1ML VIAL (J0360 PER 20MG) IV STA (04:39)
[2021-12-09] MEDS: HEPARIN SOD (PORCINE) 5000UNITS/ML 1ML VIAL/SYRINGE SQ SCH ×3 (05:30→21:09)
[2021-12-09 06:20] LABS: BASO % 0.2 % (0.0-1.0); EOS # 0.1 10^3/uL (0.0-0.5); EOS % 2.4 % (0.0-3.0); HEMATOCRIT 26.9 % (42.0-52.0); HEMOGLOBIN 9.2 g/dl (13.5-17.5); LYMPH # 1.5 10^3/uL (1.5-5.0); LYMPH % 32.1 % (24.0-44.0); MEAN CORPUSCULAR HEMOGLOBIN 32.5 pg (27.0-33.0); MEAN CORPUSCULAR HGB CONC 34.2 g/dl (32.0-36.5); MEAN CORPUSCULAR VOLUME 95.1 fl (80.0-96.0); MONO # 0.5 10^3/uL (0.0-0.8); MONO % 10.7 % (2.0-8.0); NEUTROPHILS # 2.5 10^3/uL (1.5-8.5); NEUTROPHILS % 54.4 % (36.0-66.0); PLATELET COUNT, AUTOMATED 290 10^3/uL (150-450); RED BLOOD COUNT 2.83 10^6/uL (4.30-6.10); WHITE BLOOD COUNT 4.7 10^3/uL (4.0-10.0)
[2021-12-09 06:44] LABS: BLOOD UREA NITROGEN 17 MG/DL (7-18); CALCIUM LEVEL 8.3 MG/DL (8.8-10.2); CARBON DIOXIDE LEVEL 26 MEQ/L (21-32); CHLORIDE LEVEL 113 MEQ/L (98-107); CREATININE FOR GFR 0.58 MG/DL (0.70-1.30); GLOMERULAR FILTRATION RATE > 60.0 (>42); GLUCOSE, FASTING 87 MG/DL (70-100); MAGNESIUM LEVEL 1.7 MG/DL (1.8-2.4); POTASSIUM SERUM 4.2 MEQ/L (3.5-5.1); SODIUM LEVEL 142 MEQ/L (136-145)
[2021-12-09] MEDS ORDERED: MAG SULF 1GM/100ML (MAG RUN) 1 GM in IV 1 EA IV ONE (07:00)
[2021-12-09] MEDS: oxyBUTYnin 5 MG TAB PO SCH ×2 (09:11→20:17)
[2021-12-09] MEDS: DOXYCYCLINE HYCLATE 100MG TABLET PO SCH ×2 (09:12→20:16)
[2021-12-09] MEDS: CEFDINIR 300 MG CAP (OMNICEF) PO SCH ×2 (09:12→20:17)
[2021-12-10] VITALS (8 sets, daily range): BP systolic 82–192; BP diastolic 40–94
[2021-12-10] MEDS: NS 1,000 ML IV SCH (03:36)
[2021-12-10] MEDS: HEPARIN SOD (PORCINE) 5000UNITS/ML 1ML VIAL/SYRINGE SQ SCH ×3 (05:04→20:24)
[2021-12-10 05:30] LABS: BASO % 0.5 % (0.0-1.0); EOS # 0.1 10^3/uL (0.0-0.5); EOS % 3.1 % (0.0-3.0); HEMATOCRIT 26.9 % (42.0-52.0); HEMOGLOBIN 8.9 g/dl (13.5-17.5); LYMPH # 1.5 10^3/uL (1.5-5.0); LYMPH % 37.8 % (24.0-44.0); MEAN CORPUSCULAR HEMOGLOBIN 32.2 pg (27.0-33.0); MEAN CORPUSCULAR HGB CONC 33.1 g/dl (32.0-36.5); MEAN CORPUSCULAR VOLUME 97.5 fl (80.0-96.0); MONO # 0.4 10^3/uL (0.0-0.8); MONO % 10.9 % (2.0-8.0); NEUTROPHILS # 1.8 10^3/uL (1.5-8.5); NEUTROPHILS % 47.7 % (36.0-66.0); PLATELET COUNT, AUTOMATED 278 10^3/uL (150-450); RED BLOOD COUNT 2.76 10^6/uL (4.30-6.10); WHITE BLOOD COUNT 3.8 10^3/uL (4.0-10.0)
[2021-12-10 05:50] LABS: BLOOD UREA NITROGEN 20 MG/DL (7-18); CALCIUM LEVEL 8.3 MG/DL (8.8-10.2); CARBON DIOXIDE LEVEL 26 MEQ/L (21-32); CHLORIDE LEVEL 114 MEQ/L (98-107); CREATININE FOR GFR 0.74 MG/DL (0.70-1.30); GLOMERULAR FILTRATION RATE > 60.0 (>42); GLUCOSE, FASTING 93 MG/DL (70-100); MAGNESIUM LEVEL 1.7 MG/DL (1.8-2.4); POTASSIUM SERUM 4.6 MEQ/L (3.5-5.1); SODIUM LEVEL 142 MEQ/L (136-145)
[2021-12-10] MEDS ORDERED: MAG SULF 1GM/100ML (MAG RUN) 1 GM in IV 1 EA IV ONE ×2 (07:00→12:00)
[2021-12-10] MEDS: DOXYCYCLINE HYCLATE 100MG TABLET PO SCH ×2 (09:04→20:24)
[2021-12-10] MEDS: CEFDINIR 300 MG CAP (OMNICEF) PO SCH ×2 (09:04→20:24)
[2021-12-10] MEDS: oxyBUTYnin 5 MG TAB PO SCH ×2 (09:04→20:24)
[2021-12-11] VITALS (8 sets, daily range): BP systolic 78–174; BP diastolic 52–79
[2021-12-11] MEDS: HEPARIN SOD (PORCINE) 5000UNITS/ML 1ML VIAL/SYRINGE SQ SCH ×3 (05:04→21:18)
[2021-12-11 05:55] LABS: BASO % 0.5 % (0.0-1.0); EOS # 0.1 10^3/uL (0.0-0.5); EOS % 2.4 % (0.0-3.0); HEMATOCRIT 26.7 % (42.0-52.0); LYMPH # 1.5 10^3/uL (1.5-5.0); LYMPH % 35.4 % (24.0-44.0); MEAN CORPUSCULAR HEMOGLOBIN 32.7 pg (27.0-33.0); MEAN CORPUSCULAR HGB CONC 33.7 g/dl (32.0-36.5); MEAN CORPUSCULAR VOLUME 97.1 fl (80.0-96.0); MONO # 0.5 10^3/uL (0.0-0.8); MONO % 11.2 % (2.0-8.0); NEUTROPHILS # 2.1 10^3/uL (1.5-8.5); NEUTROPHILS % 50.3 % (36.0-66.0); PLATELET COUNT, AUTOMATED 289 10^3/uL (150-450); RED BLOOD COUNT 2.75 10^6/uL (4.30-6.10); WHITE BLOOD COUNT 4.2 10^3/uL (4.0-10.0)
[2021-12-11 06:08] LABS: INR 1.07; PROTHROMBIN TIME 14.3 SECONDS (12.7-14.5)
[2021-12-11 06:22] LABS: BLOOD UREA NITROGEN 24 MG/DL (7-18); CALCIUM LEVEL 8.2 MG/DL (8.8-10.2); CARBON DIOXIDE LEVEL 24 MEQ/L (21-32); CHLORIDE LEVEL 110 MEQ/L (98-107); CREATININE FOR GFR 0.76 MG/DL (0.70-1.30); GLOMERULAR FILTRATION RATE > 60.0 (>42); GLUCOSE, FASTING 88 MG/DL (70-100); MAGNESIUM LEVEL 1.7 MG/DL (1.8-2.4); POTASSIUM SERUM 4.4 MEQ/L (3.5-5.1); SODIUM LEVEL 138 MEQ/L (136-145)
[2021-12-11] MEDS: DOXYCYCLINE HYCLATE 100MG TABLET PO SCH (09:38)
[2021-12-11] MEDS: oxyBUTYnin 5 MG TAB PO SCH ×2 (09:38→21:18)
[2021-12-11] MEDS: CEFDINIR 300 MG CAP (OMNICEF) PO SCH (09:38)
[2021-12-11] MEDS: MAG SULF 1GM/100ML (MAG RUN) 1 GM in IV 1 EA IV SCH ×3 (09:39→10:57)
[2021-12-12] MEDS: HEPARIN SOD (PORCINE) 5000UNITS/ML 1ML VIAL/SYRINGE SQ SCH ×3 (05:19→20:15)
[2021-12-12 06:00] VITALS: BP_SYST 103; BP_SYST 110; BP_SYST 160; BP_DIAS 58; BP_DIAS 60; BP_DIAS 84
[2021-12-12 06:15] LABS: BASO % 0.5 % (0.0-1.0); EOS # 0.1 10^3/uL (0.0-0.5); EOS % 2.7 % (0.0-3.0); HEMATOCRIT 27.4 % (42.0-52.0); HEMOGLOBIN 9.2 g/dl (13.5-17.5); LYMPH # 1.8 10^3/uL (1.5-5.0); LYMPH % 45.5 % (24.0-44.0); MEAN CORPUSCULAR HEMOGLOBIN 32.5 pg (27.0-33.0); MEAN CORPUSCULAR HGB CONC 33.6 g/dl (32.0-36.5); MEAN CORPUSCULAR VOLUME 96.8 fl (80.0-96.0); MONO # 0.5 10^3/uL (0.0-0.8); MONO % 11.4 % (2.0-8.0); NEUTROPHILS # 1.6 10^3/uL (1.5-8.5); NEUTROPHILS % 39.7 % (36.0-66.0); PLATELET COUNT, AUTOMATED 306 10^3/uL (150-450); RED BLOOD COUNT 2.83 10^6/uL (4.30-6.10)
[2021-12-12 06:38] LABS: BLOOD UREA NITROGEN 26 MG/DL (7-18); CALCIUM LEVEL 8.4 MG/DL (8.8-10.2); CARBON DIOXIDE LEVEL 26 MEQ/L (21-32); CHLORIDE LEVEL 109 MEQ/L (98-107); GLOMERULAR FILTRATION RATE > 60.0 (>42); GLUCOSE, FASTING 84 MG/DL (70-100); MAGNESIUM LEVEL 1.9 MG/DL (1.8-2.4); POTASSIUM SERUM 4.5 MEQ/L (3.5-5.1); SODIUM LEVEL 138 MEQ/L (136-145)
[2021-12-12] MEDS: oxyBUTYnin 5 MG TAB PO SCH ×2 (08:17→20:15)
[2021-12-12] MEDS: MIDODRINE 2.5 MG TAB PO SCH ×2 (12:27→16:24)
[2021-12-12 14:00] VITALS: BP 104/50
[2021-12-12 14:09] LABS: CHLAMYDIA PNEUMONIAE IgM <1:10 (Neg:<1:10); L PNEUMOPHILIA 1-6 IgM < 1:16 (< 1:16); MYCOPLASMA PNEUMONIAE IgG <100 U/mL (0-99); MYCOPLASMA PNEUMONIAE IgM <770 U/mL (0-769)
[2021-12-12 14:36] VITALS: BP_SYST 104; BP_SYST 93; BP_DIAS 50
[2021-12-12 23:11] VITALS: BP 120/67
[2021-12-13] MEDS: HEPARIN SOD (PORCINE) 5000UNITS/ML 1ML VIAL/SYRINGE SQ SCH ×3 (05:01→20:27)
[2021-12-13 05:02] VITALS: BP_SYST 113; BP_SYST 158; BP_SYST 171; BP_DIAS 51; BP_DIAS 71; BP_DIAS 80
[2021-12-13 05:08] VITALS: BP 158/71
[2021-12-13 06:27] LABS: HEMATOCRIT 28.8 % (42.0-52.0); HEMOGLOBIN 9.3 g/dl (13.5-17.5); MEAN CORPUSCULAR HGB CONC 32.3 g/dl (32.0-36.5); PLATELET COUNT, AUTOMATED 337 10^3/uL (150-450); RED BLOOD COUNT 2.91 10^6/uL (4.30-6.10); WHITE BLOOD COUNT 3.9 10^3/uL (4.0-10.0)
[2021-12-13] MEDS ORDERED: MIDODRINE 2.5 MG TAB PO SCH ×2 (08:00)
[2021-12-13 08:20] LABS: BASO % 0.8 % (0.0-1.0); EOS % 2.3 % (0.0-3.0); LYMPH % 43.3 % (24.0-44.0); MONO % 14.2 % (2.0-8.0); NEUTROPHILS % 39.1 % (36.0-66.0)
[2021-12-13 08:21] LABS: EOS # 0.1 10^3/uL (0.0-0.5); LYMPH # 1.7 10^3/uL (1.5-5.0); MONO # 0.6 10^3/uL (0.0-0.8); NEUTROPHILS # 1.5 10^3/uL (1.5-8.5)
[2021-12-13 08:41] LABS: BLOOD UREA NITROGEN 27 MG/DL (7-18); CALCIUM LEVEL 8.8 MG/DL (8.8-10.2); CARBON DIOXIDE LEVEL 26 MEQ/L (21-32); CHLORIDE LEVEL 111 MEQ/L (98-107); CREATININE FOR GFR 0.78 MG/DL (0.70-1.30); GLOMERULAR FILTRATION RATE > 60.0 (>42); GLUCOSE, FASTING 89 MG/DL (70-100); MAGNESIUM LEVEL 1.8 MG/DL (1.8-2.4); POTASSIUM SERUM 4.5 MEQ/L (3.5-5.1); SODIUM LEVEL 142 MEQ/L (136-145)
[2021-12-13] MEDS: oxyBUTYnin 5 MG TAB PO SCH ×2 (10:27→20:26)
[2021-12-13 12:13] VITALS: BP_SYST 122; BP_SYST 70; BP_SYST 92; BP_DIAS 39; BP_DIAS 48; BP_DIAS 58
[2021-12-13 14:00] VITALS: BP 129/66
[2021-12-13] MEDS: MIDODRINE 5 MG TAB PO SCH (17:32)
[2021-12-13 20:27] VITALS: BP 96/45
[2021-12-14] MEDS ORDERED: COSYNTROPIN 0.25 MG/ML VIAL (J0834 PER 0.25MG) IV ONE (06:00)
[2021-12-14] MEDS: HEPARIN SOD (PORCINE) 5000UNITS/ML 1ML VIAL/SYRINGE SQ SCH ×3 (06:05→21:33)
[2021-12-14 06:18] LABS: BASO % 0.5 % (0.0-1.0); EOS # 0.1 10^3/uL (0.0-0.5); EOS % 1.9 % (0.0-3.0); HEMATOCRIT 27.3 % (42.0-52.0); LYMPH % 48.6 % (24.0-44.0); MEAN CORPUSCULAR HEMOGLOBIN 32.3 pg (27.0-33.0); MEAN CORPUSCULAR VOLUME 97.8 fl (80.0-96.0); MONO # 0.5 10^3/uL (0.0-0.8); MONO % 11.3 % (2.0-8.0); NEUTROPHILS # 1.6 10^3/uL (1.5-8.5); NEUTROPHILS % 37.5 % (36.0-66.0); PLATELET COUNT, AUTOMATED 327 10^3/uL (150-450); RED BLOOD COUNT 2.79 10^6/uL (4.30-6.10); WHITE BLOOD COUNT 4.2 10^3/uL (4.0-10.0)
[2021-12-14 06:24] VITALS: BP 154/74
[2021-12-14 06:37] LABS: BLOOD UREA NITROGEN 29 MG/DL (7-18); CALCIUM LEVEL 8.5 MG/DL (8.8-10.2); CARBON DIOXIDE LEVEL 28 MEQ/L (21-32); CHLORIDE LEVEL 111 MEQ/L (98-107); CREATININE FOR GFR 0.84 MG/DL (0.70-1.30); GLOMERULAR FILTRATION RATE > 60.0 (>42); GLUCOSE, FASTING 91 MG/DL (70-100); MAGNESIUM LEVEL 1.6 MG/DL (1.8-2.4); POTASSIUM SERUM 4.3 MEQ/L (3.5-5.1); SODIUM LEVEL 141 MEQ/L (136-145)
[2021-12-14] MEDS: FLUDROCORTISONE ACETATE 0.1 MG TAB PO SCH (09:00)
[2021-12-14] MEDS: oxyBUTYnin 5 MG TAB PO SCH ×2 (10:15→21:33)
[2021-12-14] MEDS: MAG SULF 1GM/100ML (MAG RUN) 1 GM in IV 1 EA IV SCH ×2 (10:15→12:29)
[2021-12-14] MEDS: MIDODRINE 5 MG TAB PO SCH ×3 (10:16→15:15)
[2021-12-14] MEDS: MAGNESIUM OXIDE 400MG TAB (MAG-OX) PO SCH ×2 (10:16→21:33)
[2021-12-14 10:37] VITALS: BP_SYST 88; BP_SYST 95; BP_SYST 98; BP_DIAS 52; BP_DIAS 53; BP_DIAS 55
[2021-12-14 12:17] VITALS: BP 119/54
[2021-12-14] MEDS ORDERED: MAG SULF 1GM/100ML (MAG RUN) 1 GM in IV 1 EA IV ONE (12:30)
[2021-12-14 14:00] VITALS: BP 118/55
[2021-12-14 18:42] VITALS: BP 119/56
[2021-12-15] MEDS: HEPARIN SOD (PORCINE) 5000UNITS/ML 1ML VIAL/SYRINGE SQ SCH ×3 (05:13→20:12)
[2021-12-15 05:44] VITALS: BP 132/78
[2021-12-15 05:59] LABS: BASO % 0.5 % (0.0-1.0); EOS # 0.1 10^3/uL (0.0-0.5); EOS % 1.6 % (0.0-3.0); HEMATOCRIT 26.7 % (42.0-52.0); MEAN CORPUSCULAR HEMOGLOBIN 32.7 pg (27.0-33.0); MEAN CORPUSCULAR HGB CONC 33.7 g/dl (32.0-36.5); MEAN CORPUSCULAR VOLUME 97.1 fl (80.0-96.0); MONO # 0.5 10^3/uL (0.0-0.8); MONO % 10.6 % (2.0-8.0); NEUTROPHILS # 1.8 10^3/uL (1.5-8.5); NEUTROPHILS % 41.1 % (36.0-66.0); PLATELET COUNT, AUTOMATED 337 10^3/uL (150-450); RED BLOOD COUNT 2.75 10^6/uL (4.30-6.10); WHITE BLOOD COUNT 4.4 10^3/uL (4.0-10.0)
[2021-12-15 06:24] LABS: BLOOD UREA NITROGEN 26 MG/DL (7-18); CALCIUM LEVEL 8.4 MG/DL (8.8-10.2); CARBON DIOXIDE LEVEL 27 MEQ/L (21-32); CHLORIDE LEVEL 109 MEQ/L (98-107); GLOMERULAR FILTRATION RATE > 60.0 (>42); GLUCOSE, FASTING 86 MG/DL (70-100); MAGNESIUM LEVEL 2.1 MG/DL (1.8-2.4); POTASSIUM SERUM 4.5 MEQ/L (3.5-5.1); SODIUM LEVEL 140 MEQ/L (136-145)
[2021-12-15 09:00] VITALS: BP 58/38
[2021-12-15 09:05] VITALS: BP 58/38
[2021-12-15] MEDS: oxyBUTYnin 5 MG TAB PO SCH ×2 (09:05→20:12)
[2021-12-15] MEDS: MIDODRINE 5 MG TAB PO SCH ×3 (09:06→16:51)
[2021-12-15] MEDS: MAGNESIUM OXIDE 400MG TAB (MAG-OX) PO SCH ×2 (09:07→20:12)
[2021-12-15] MEDS: FLUDROCORTISONE ACETATE 0.1 MG TAB PO SCH (09:08)
[2021-12-15 09:13] VITALS: BP 154/70
[2021-12-15 13:49] VITALS: BP_SYST 162; BP_SYST 58; BP_SYST 70; BP_DIAS 36; BP_DIAS 50; BP_DIAS 76
[2021-12-15 16:55] VITALS: BP 82/50
[2021-12-16] MEDS: HEPARIN SOD (PORCINE) 5000UNITS/ML 1ML VIAL/SYRINGE SQ SCH ×3 (05:14→20:30)
[2021-12-16 05:24] VITALS: BP 147/74
[2021-12-16 05:36] VITALS: BP_SYST 147; BP_SYST 70; BP_SYST 87; BP_DIAS 45; BP_DIAS 53; BP_DIAS 74
[2021-12-16 06:51] LABS: BASO % 0.8 % (0.0-1.0); EOS # 0.1 10^3/uL (0.0-0.5); EOS % 1.9 % (0.0-3.0); HEMATOCRIT 27.8 % (42.0-52.0); HEMOGLOBIN 9.2 g/dl (13.5-17.5); LYMPH # 2.1 10^3/uL (1.5-5.0); LYMPH % 44.7 % (24.0-44.0); MEAN CORPUSCULAR HEMOGLOBIN 32.5 pg (27.0-33.0); MEAN CORPUSCULAR HGB CONC 33.1 g/dl (32.0-36.5); MEAN CORPUSCULAR VOLUME 98.2 fl (80.0-96.0); MONO # 0.5 10^3/uL (0.0-0.8); MONO % 11.4 % (2.0-8.0); NEUTROPHILS # 1.9 10^3/uL (1.5-8.5); PLATELET COUNT, AUTOMATED 361 10^3/uL (150-450); RED BLOOD COUNT 2.83 10^6/uL (4.30-6.10); WHITE BLOOD COUNT 4.7 10^3/uL (4.0-10.0)
[2021-12-16 07:18] LABS: BLOOD UREA NITROGEN 26 MG/DL (7-18); CALCIUM LEVEL 8.5 MG/DL (8.8-10.2); CARBON DIOXIDE LEVEL 26 MEQ/L (21-32); CHLORIDE LEVEL 106 MEQ/L (98-107); CREATININE FOR GFR 0.87 MG/DL (0.70-1.30); GLOMERULAR FILTRATION RATE > 60.0 (>42); GLUCOSE, FASTING 84 MG/DL (70-100); MAGNESIUM LEVEL 1.9 MG/DL (1.8-2.4); POTASSIUM SERUM 4.3 MEQ/L (3.5-5.1); SODIUM LEVEL 138 MEQ/L (136-145)
[2021-12-16] MEDS: FLUDROCORTISONE ACETATE 0.1 MG TAB PO SCH (09:19)
[2021-12-16] MEDS: oxyBUTYnin 5 MG TAB PO SCH ×2 (09:19→20:31)
[2021-12-16] MEDS: MAGNESIUM OXIDE 400MG TAB (MAG-OX) PO SCH ×2 (09:19→20:31)
[2021-12-16] MEDS: MIDODRINE 5 MG TAB PO SCH ×3 (09:20→17:11)
[2021-12-16 10:22] VITALS: BP 90/50
[2021-12-17] MEDS: HEPARIN SOD (PORCINE) 5000UNITS/ML 1ML VIAL/SYRINGE SQ SCH ×3 (05:29→20:38)
[2021-12-17 06:00] VITALS: BP 137/70
[2021-12-17 06:04] VITALS: BP_SYST 100; BP_SYST 137; BP_SYST 95; BP_DIAS 50; BP_DIAS 52; BP_DIAS 73
[2021-12-17 06:52] LABS: BASO % 0.5 % (0.0-1.0); EOS # 0.1 10^3/uL (0.0-0.5); EOS % 2.1 % (0.0-3.0); HEMATOCRIT 27.4 % (42.0-52.0); HEMOGLOBIN 9.1 g/dl (13.5-17.5); LYMPH # 1.6 10^3/uL (1.5-5.0); LYMPH % 38.9 % (24.0-44.0); MEAN CORPUSCULAR HEMOGLOBIN 32.4 pg (27.0-33.0); MEAN CORPUSCULAR HGB CONC 33.2 g/dl (32.0-36.5); MEAN CORPUSCULAR VOLUME 97.5 fl (80.0-96.0); MONO # 0.5 10^3/uL (0.0-0.8); MONO % 11.7 % (2.0-8.0); NEUTROPHILS % 46.6 % (36.0-66.0); PLATELET COUNT, AUTOMATED 347 10^3/uL (150-450); RED BLOOD COUNT 2.81 10^6/uL (4.30-6.10); WHITE BLOOD COUNT 4.2 10^3/uL (4.0-10.0)
[2021-12-17 07:17] LABS: BLOOD UREA NITROGEN 29 MG/DL (7-18); CALCIUM LEVEL 8.6 MG/DL (8.8-10.2); CARBON DIOXIDE LEVEL 27 MEQ/L (21-32); CHLORIDE LEVEL 109 MEQ/L (98-107); CREATININE FOR GFR 1.01 MG/DL (0.70-1.30); GLOMERULAR FILTRATION RATE > 60.0 (>42); GLUCOSE, FASTING 92 MG/DL (70-100); MAGNESIUM LEVEL 1.8 MG/DL (1.8-2.4); POTASSIUM SERUM 4.3 MEQ/L (3.5-5.1); SODIUM LEVEL 141 MEQ/L (136-145)
[2021-12-17] MEDS: oxyBUTYnin 5 MG TAB PO SCH ×2 (09:24→20:38)
[2021-12-17] MEDS: MIDODRINE 5 MG TAB PO SCH ×3 (09:24→17:12)
[2021-12-17] MEDS: MAGNESIUM OXIDE 400MG TAB (MAG-OX) PO SCH ×2 (09:25→20:38)
[2021-12-17] MEDS: FLUDROCORTISONE ACETATE 0.1 MG TAB PO SCH (09:25)
[2021-12-17 13:04] VITALS: BP 149/65
[2021-12-18] MEDS: HEPARIN SOD (PORCINE) 5000UNITS/ML 1ML VIAL/SYRINGE SQ SCH (05:09)
[2021-12-18 05:55] VITALS: BP 146/71
[2021-12-18 06:00] VITALS: BP_SYST 106; BP_SYST 148; BP_SYST 80; BP_DIAS 42; BP_DIAS 55; BP_DIAS 72
[2021-12-18] MEDS: FLUDROCORTISONE ACETATE 0.1 MG TAB PO SCH (08:07)
[2021-12-18] MEDS: MIDODRINE 5 MG TAB PO SCH ×3 (08:07→16:00)
[2021-12-18] MEDS: MAGNESIUM OXIDE 400MG TAB (MAG-OX) PO SCH ×2 (08:07→21:17)
[2021-12-18] MEDS: oxyBUTYnin 5 MG TAB PO SCH ×2 (08:07→21:17)
[2021-12-18 11:55] VITALS: BP 124/69
[2021-12-18] MEDS: ENOXAPARIN 40MG/0.4ML SYRINGE (J1650 PER 10MG) SC SCH (13:33)
[2021-12-19] MEDS ORDERED: MOM 30ML SUSPENSION UDC PO PRN (00:45)
[2021-12-19] MEDS ORDERED: MIRALAX *UNIT DOSE* 17GM PACKET PO PRN (00:45)
[2021-12-19] MEDS: SENNA 8.6 MG TAB (SENOKOT) PO PRN ×2 (04:17→20:43)
[2021-12-19 05:00] VITALS: BP 162/73
[2021-12-19] MEDS: oxyBUTYnin 5 MG TAB PO SCH ×2 (09:10→20:43)
[2021-12-19] MEDS: ENOXAPARIN 40MG/0.4ML SYRINGE (J1650 PER 10MG) SC SCH (09:10)
[2021-12-19] MEDS: MAGNESIUM OXIDE 400MG TAB (MAG-OX) PO SCH ×2 (09:10→20:43)
[2021-12-19] MEDS: FLUDROCORTISONE ACETATE 0.1 MG TAB PO SCH (09:11)
[2021-12-19] MEDS: MIDODRINE 5 MG TAB PO SCH ×3 (09:11→16:00)
[2021-12-20 06:00] VITALS: BP 154/76
[2021-12-20] MEDS: FLUDROCORTISONE ACETATE 0.1 MG TAB PO SCH (08:22)
[2021-12-20] MEDS: MAGNESIUM OXIDE 400MG TAB (MAG-OX) PO SCH (08:23)
[2021-12-20] MEDS: ENOXAPARIN 40MG/0.4ML SYRINGE (J1650 PER 10MG) SC SCH (08:23)
[2021-12-20] MEDS: oxyBUTYnin 5 MG TAB PO SCH (08:23)
[2021-12-20] MEDS: MIDODRINE 5 MG TAB PO SCH ×2 (08:28→12:40)
[2021-12-20 08:29] VITALS: BP 75/34
[2021-12-20 10:01] VITALS: BP 120/57
[2021-12-20] MEDS ORDERED: MAGN400T2 PO (10:47)
[2021-12-20] MEDS ORDERED: MIDO5TA PO ×2 (10:47)
[2021-12-20] MEDS ORDERED: FLUD0.1T PO (10:47)
[2021-12-20] MEDS ORDERED: SENN18TA PO (10:47)
[2021-12-20] MEDS ORDERED: MIRA1POW3 PO (10:47)
[2021-12-20 12:41] VITALS: BP 135/68
== END 2021-12-20 13:30 | disposition home or self-care (01) | DRG 194 ==
LOC: M ED 11:15 → M ED INP 16:18 → ENRESERV 21:21 → M PCU 22:34 → M MSPAV 12-11 23:29
PROVIDERS: ADMIT Family Medicine; ATTEND Internal Medicine Nephrology
PROC: 0W993ZZ Drainage of Right Pleural Cavity, Percutaneous Approach (ICD-10-PCS; principal; 2021-12-05 15:00)
DX: J18.9 Pneumonia, unspecified organism (principal); J90 Pleural effusion, not elsewhere classified; J98.11 Atelectasis; I10 Essential (primary) hypertension; K21.9 Gastro-esophageal reflux disease without esophagitis; K44.9 Diaphragmatic hernia without obstruction or gangrene; R32 Unspecified urinary incontinence; Z96.652 Presence of left artificial knee joint; Z20.822 Contact with and (suspected) exposure to COVID-19; Z79.2 Long term (current) use of antibiotics; Z79.899 Other long term (current) drug therapy; Z88.0 Allergy status to penicillin; Z88.2 Allergy status to sulfonamides; Z88.5 Allergy status to narcotic agent; E83.42 Hypomagnesemia; I49.9 Cardiac arrhythmia, unspecified

== ENCOUNTER → 2022-01-04 | Outpatient (REF) ==
[~2022-01-04] MED LIST changes: +AZIT-12 PO; +CEFD300C41 PO; +LISI40TA4 PO; +MAGN400T2 PO; +MIDO5TA PO; +MIRA1POW3 PO; +SENN18TA PO; +TAMS1CAP17 PO
== END ==
LOC: SKLAB7 13:43
PROVIDERS: ATTEND Internal Medicine
DX: E83.42 Hypomagnesemia (principal)

== ENCOUNTER → 2022-03-07 | Outpatient (REF) | payer MEDICARE, MEDICAID ==
[2022-03-07 07:07] LABS: BASO % 0.4 % (0.0-1.0); EOS # 0.2 10^3/uL (0.0-0.5); EOS % 3.5 % (0.0-3.0); HEMOGLOBIN 9.4 g/dl (13.5-17.5); LYMPH # 1.8 10^3/uL (1.5-5.0); LYMPH % 26.8 % (24.0-44.0); MEAN CORPUSCULAR HEMOGLOBIN 34.6 pg (27.0-33.0); MEAN CORPUSCULAR HGB CONC 33.6 g/dl (32.0-36.5); MEAN CORPUSCULAR VOLUME 102.9 fl (80.0-96.0); MONO # 0.9 10^3/uL (0.0-0.8); MONO % 12.8 % (2.0-8.0); NEUTROPHILS # 3.8 10^3/uL (1.5-8.5); NEUTROPHILS % 56.4 % (36.0-66.0); PLATELET COUNT, AUTOMATED 342 10^3/uL (150-450); RED BLOOD COUNT 2.72 10^6/uL (4.30-6.10); WHITE BLOOD COUNT 6.8 10^3/uL (4.0-10.0)
[2022-03-07 07:41] LABS: BLOOD UREA NITROGEN 30 MG/DL (7-18); CALCIUM LEVEL 9.1 MG/DL (8.8-10.2); CARBON DIOXIDE LEVEL 27 MEQ/L (21-32); CHLORIDE LEVEL 108 MEQ/L (98-107); CREATININE FOR GFR 0.82 MG/DL (0.70-1.30); GLOMERULAR FILTRATION RATE > 60.0 (>42); GLUCOSE, FASTING 89 MG/DL (70-100); POTASSIUM SERUM 4.2 MEQ/L (3.5-5.1); SODIUM LEVEL 141 MEQ/L (136-145)
== END ==
LOC: SKLAB7 10:41
PROVIDERS: ATTEND Nurse Practitioner Family
DX: E27.40 Unspecified adrenocortical insufficiency (principal)

== ENCOUNTER → 2022-03-27 | Outpatient (REF) | payer MEDICARE, MEDICAID ==
[2022-03-27 09:16] LABS: PTH INTACT 23.5 PG/ML (18.5-88.0)
== END ==
LOC: SKLAB7 08:00
PROVIDERS: ATTEND Nurse Practitioner Family
DX: E27.40 Unspecified adrenocortical insufficiency (principal)

== ENCOUNTER → 2022-03-27 | Outpatient (CLI) | payer MEDICARE, MEDICAID | LOC: M RAD 11:01 | PROVIDERS: ATTEND Nurse Practitioner Family | DX: G31.89 Other specified degenerative diseases of nervous system (principal); I67.82 Cerebral ischemia; R25.1 Tremor, unspecified; R41.81 Age-related cognitive decline ==

== ENCOUNTER → 2022-03-29 | Outpatient (CLI) | payer MEDICARE, MEDICAID ==
[2022-03-31 17:10] LABS: FREE KAPPA LIGHT CHAINS SERUM 46.8 mg/L (3.3-19.4); FREE LAMBDA LIGHT CHAINS SERUM 33.1 mg/L (5.7-26.3); KAPPA/LAMBDA RATIO SERUM 1.41 (0.26-1.65)
[2022-04-03 14:00] LABS: ALBUMIN 3.58 GM/DL (3.29-5.55); ALBUMIN % 59.7 % (55.8-66.1); ALPHA-1-GLOBULIN % 4.2 % (2.9-4.9); ALPHA-1-GLOBULINS 0.25 GM/DL (0.17-0.41); ALPHA-2-GLOBULINS 0.56 GM/DL (0.42-0.99); ALPHA-2-GLOBULINS % 9.4 % (7.1-11.8); BETA-1-GLOBULINS 0.35 GM/DL (0.28-0.60); BETA-1-GLOBULINS % 5.8 % (4.7-7.2); BETA-2-GLOBULINS 0.27 GM/DL (0.19-0.55); BETA-2-GLOBULINS % 4.5 % (3.2-6.5); GAMMA GLOBULIN % 16.4 % (11.1-18.8); GAMMA GLOBULINS 0.98 GM/DL (0.65-1.58)
[2022-04-03 14:01] LABS: SPEP INTERPRETATION SEE COMM
== END ==
LOC: M RAD 11:31
PROVIDERS: ATTEND Nurse Practitioner Family
DX: G91.9 Hydrocephalus, unspecified (principal)

== ENCOUNTER → 2022-03-30 | Outpatient (REF) | payer MEDICARE, MEDICAID | LOC: SKLAB7 09:00 | PROVIDERS: ATTEND Nurse Practitioner Family | DX: E27.40 Unspecified adrenocortical insufficiency (principal) ==

== ENCOUNTER → 2022-04-08 | Outpatient (CLI) | payer MEDICARE, MEDICAID | LOC: SKLAB7 04:23 | PROVIDERS: ATTEND Internal Medicine | DX: Z20.822 Contact with and (suspected) exposure to COVID-19 (principal); Z53.9 Procedure and treatment not carried out, unspecified reason ==

== ENCOUNTER → 2022-04-09 | Outpatient (REF) | payer MEDICARE, MEDICAID | LOC: SKLAB7 09:54 | PROVIDERS: ATTEND Nurse Practitioner Family | DX: Z20.822 Contact with and (suspected) exposure to COVID-19 (principal) ==

== ENCOUNTER → 2022-04-16 | Outpatient (CLI) | payer MEDICARE, MEDICAID | LOC: M RAD 14:55 | PROVIDERS: ATTEND Nurse Practitioner Family | DX: G91.9 Hydrocephalus, unspecified (principal); R41.82 Altered mental status, unspecified; J32.3 Chronic sphenoidal sinusitis; I63.543 Cerebral infarction due to unspecified occlusion or stenosis of bilateral cerebellar arteries ==

== ENCOUNTER → 2022-04-18 | Outpatient (REF) | payer MEDICARE, MEDICAID | LOC: SKLAB7 07:06 | PROVIDERS: ATTEND Nurse Practitioner Family | DX: I63.9 Cerebral infarction, unspecified (principal) ==

== ENCOUNTER → 2022-09-30 | Outpatient (REF) | LOC: SKLAB7 18:34 | PROVIDERS: ATTEND Internal Medicine | DX: R91.8 Other nonspecific abnormal finding of lung field (principal) ==

== ENCOUNTER → 2022-09-30 | Outpatient (REF) | payer MEDICARE, MEDICAID | LOC: SKLAB7 07:00 | PROVIDERS: ATTEND Nurse Practitioner Family | DX: R50.9 Fever, unspecified (principal); Z53.8 Procedure and treatment not carried out for other reasons ==

== ENCOUNTER → 2022-10-01 | Outpatient (REF) | payer MEDICARE, MEDICAID ==
[2022-10-01 11:01] LABS: HEMATOCRIT 26.8 % (42.0-52.0); HEMOGLOBIN 8.5 g/dl (13.5-17.5); MEAN CORPUSCULAR HEMOGLOBIN 32.4 pg (27.0-33.0); MEAN CORPUSCULAR HGB CONC 31.7 g/dl (32.0-36.5); MEAN CORPUSCULAR VOLUME 102.3 fl (80.0-96.0); PLATELET COUNT, AUTOMATED 308 10^3/uL (150-450); RED BLOOD COUNT 2.62 10^6/uL (4.30-6.10); WHITE BLOOD COUNT 7.8 10^3/uL (4.0-10.0)
[2022-10-01 11:34] LABS: ALBUMIN 2.9 G/DL (3.2-5.2); ALKALINE PHOSPHATASE 89 U/L (46-116); ALT/SGPT 30 U/L (7.0-40); AST/SGOT 44 U/L (<34); BILIRUBIN,TOTAL 0.7 MG/DL (0.3-1.2); BLOOD UREA NITROGEN 35 MG/DL (9-23); CALCIUM LEVEL 8.6 MG/DL (8.3-10.6); CARBON DIOXIDE LEVEL 28 MMOL/L (20-31); CHLORIDE LEVEL 107 MMOL/L (98-107); CREATININE FOR GFR 0.68 MG/DL (0.70-1.30); GLOMERULAR FILTRATION RATE > 60.0 (>35); GLUCOSE, FASTING 136 MG/DL (74-106); POTASSIUM SERUM 3.9 MMOL/L (3.5-5.1); SODIUM LEVEL 142 MMOL/L (136-145); TOTAL PROTEIN 6.3 G/DL (5.7-8.2)
== END ==
LOC: SKLAB7 03:32
PROVIDERS: ATTEND Internal Medicine
DX: U07.1 COVID-19 (principal); Z79.899 Other long term (current) drug therapy

== ENCOUNTER → 2022-10-04 | Outpatient (REF) | payer MEDICARE, MEDICAID ==
[2022-10-04 08:38] LABS: HEMATOCRIT 26.7 % (42.0-52.0); HEMOGLOBIN 8.6 g/dl (13.5-17.5); MEAN CORPUSCULAR HEMOGLOBIN 32.1 pg (27.0-33.0); MEAN CORPUSCULAR HGB CONC 32.2 g/dl (32.0-36.5); MEAN CORPUSCULAR VOLUME 99.6 fl (80.0-96.0); PLATELET COUNT, AUTOMATED 306 10^3/uL (150-450); RED BLOOD COUNT 2.68 10^6/uL (4.30-6.10); WHITE BLOOD COUNT 4.7 10^3/uL (4.0-10.0)
[2022-10-04 09:11] LABS: ALBUMIN 2.8 G/DL (3.2-5.2); ALKALINE PHOSPHATASE 81 U/L (46-116); ALT/SGPT 25 U/L (7.0-40); AST/SGOT 34 U/L (<34); BILIRUBIN,TOTAL 0.8 MG/DL (0.3-1.2); BLOOD UREA NITROGEN 28 MG/DL (9-23); CALCIUM LEVEL 8.6 MG/DL (8.3-10.6); CARBON DIOXIDE LEVEL 27 MMOL/L (20-31); CHLORIDE LEVEL 105 MMOL/L (98-107); CREATININE FOR GFR 0.57 MG/DL (0.70-1.30); GLOMERULAR FILTRATION RATE > 60.0 (>35); GLUCOSE, FASTING 93 MG/DL (74-106); POTASSIUM SERUM 4.2 MMOL/L (3.5-5.1); SODIUM LEVEL 140 MMOL/L (136-145); TOTAL PROTEIN 5.9 G/DL (5.7-8.2)
== END ==
LOC: SKLAB7 07:00
PROVIDERS: ATTEND Internal Medicine
DX: U07.1 COVID-19 (principal); Z79.899 Other long term (current) drug therapy

== ENCOUNTER → 2022-10-08 | Outpatient (REF) | payer MEDICARE, MEDICAID ==
[2022-10-08 08:19] LABS: HEMATOCRIT 25.7 % (42.0-52.0); HEMOGLOBIN 8.4 g/dl (13.5-17.5); MEAN CORPUSCULAR HEMOGLOBIN 32.7 pg (27.0-33.0); MEAN CORPUSCULAR HGB CONC 32.7 g/dl (32.0-36.5); PLATELET COUNT, AUTOMATED 389 10^3/uL (150-450); RED BLOOD COUNT 2.57 10^6/uL (4.30-6.10); WHITE BLOOD COUNT 7.6 10^3/uL (4.0-10.0)
[2022-10-08 09:30] LABS: ALBUMIN 2.9 G/DL (3.2-5.2); ALKALINE PHOSPHATASE 81 U/L (46-116); ALT/SGPT 47 U/L (7.0-40); AST/SGOT 54 U/L (<34); BILIRUBIN,TOTAL 0.9 MG/DL (0.3-1.2); BLOOD UREA NITROGEN 25 MG/DL (9-23); CALCIUM LEVEL 8.9 MG/DL (8.3-10.6); CARBON DIOXIDE LEVEL 26 MMOL/L (20-31); CHLORIDE LEVEL 106 MMOL/L (98-107); CREATININE FOR GFR 0.65 MG/DL (0.70-1.30); GLOMERULAR FILTRATION RATE > 60.0 (>35); GLUCOSE, FASTING 86 MG/DL (74-106); SODIUM LEVEL 139 MMOL/L (136-145)
== END ==
LOC: SKLAB7 07:00
PROVIDERS: ATTEND Internal Medicine
DX: U07.1 COVID-19 (principal); Z79.899 Other long term (current) drug therapy

== ENCOUNTER → 2022-10-11 | Outpatient (REF) | payer MEDICARE, MEDICAID ==
[2022-10-11 09:52] LABS: HEMATOCRIT 27.2 % (42.0-52.0); HEMOGLOBIN 8.8 g/dl (13.5-17.5); MEAN CORPUSCULAR HEMOGLOBIN 32.6 pg (27.0-33.0); MEAN CORPUSCULAR HGB CONC 32.4 g/dl (32.0-36.5); MEAN CORPUSCULAR VOLUME 100.7 fl (80.0-96.0); PLATELET COUNT, AUTOMATED 400 10^3/uL (150-450); WHITE BLOOD COUNT 6.1 10^3/uL (4.0-10.0)
[2022-10-11 10:24] LABS: ALBUMIN 2.9 G/DL (3.2-5.2); ALKALINE PHOSPHATASE 95 U/L (46-116); ALT/SGPT 36 U/L (7.0-40); AST/SGOT 39 U/L (<34); BILIRUBIN,TOTAL 1.1 MG/DL (0.3-1.2); BLOOD UREA NITROGEN 22 MG/DL (9-23); CALCIUM LEVEL 8.4 MG/DL (8.3-10.6); CARBON DIOXIDE LEVEL 26 MMOL/L (20-31); CHLORIDE LEVEL 104 MMOL/L (98-107); CREATININE FOR GFR 0.63 MG/DL (0.70-1.30); GLOMERULAR FILTRATION RATE > 60.0 (>35); GLUCOSE, FASTING 85 MG/DL (74-106); POTASSIUM SERUM 4.2 MMOL/L (3.5-5.1); SODIUM LEVEL 137 MMOL/L (136-145); TOTAL PROTEIN 6.3 G/DL (5.7-8.2)
== END ==
LOC: SKLAB7 11:32
PROVIDERS: ATTEND Internal Medicine
DX: U07.1 COVID-19 (principal); Z79.899 Other long term (current) drug therapy

== ENCOUNTER → 2023-06-26 | Outpatient (CLI) | payer MEDICARE, MEDICAID ==
[~2023-06-26] MED LIST changes: +BARIUM SULFATE 700 MG TABLET (E-Z-DISK) As Ordered ONE; -CEFD300C41 PO; +CEFD300C42 PO; +E-Z-PAQUE 96% w/w SUSP 176GM BTL As Ordered ONE; +MECL-209 PO; -MECL1TAB31 PO; -OXYB5TAB10 PO; +OXYB5TAB11 PO; +SENN-111 PO; -SENN18TA PO; +VARIBAR NECTAR 40% w/v 240ML SUSP BTL As Ordered ONE; +VARIBAR PUDDING 40% w/v 230ML TUBE As Ordered ONE
== END ==
LOC: M RAD 11:23
PROVIDERS: ATTEND Internal Medicine
DX: R05.9 Cough, unspecified (principal); T17.990A Other foreign object in respiratory tract, part unspecified in causing asphyxiation, initial encounter; Y92.238 Other place in hospital as the place of occurrence of the external cause